=== PATIENT | female | born 1945 | race Caucasian/White ===

== ENCOUNTER 2022-05-28 10:21 | Emergency (ER) | payer OTHER, SELFPAY ==
--- NOTE | ~2022-05-28 | XR_ITS ---
EXAMINATION: XR LUMBOSACRAL SPINE CLINICAL INFORMATION: Fall. Pain. COMPARISON: None TECHNIQUE: Three views of the lumbosacral spine. FINDINGS: Bone alignment is normal. No fracture or dislocation is seen. There is mild degenerative disc disease at L2-L3 L3-L4 and L4-L5. There is mild spondylosis greatest at L2-L3. There is lower lumbar spine facet arthritis. There is atherosclerotic disease. XR/XR lumbar spine 2-3V IMPRESSION: Degenerative changes. No fracture is seen.
--- NOTE | ~2022-05-28 | XR_ITS ---
EXAMINATION: XR BILATERAL HIPS WITH AP PELVIS CLINICAL INFORMATION: Bilateral hip pain status post fall one month ago. COMPARISON: None TECHNIQUE: AP view of the pelvis and single views of each hip were obtained. FINDINGS: Minimal bilateral hip degenerative joint changes are seen. There is no acute fracture or dislocation. The bony pelvis is intact with the soft tissues are unremarkable. Moderate to severe atherosclerosis. XR/XR hip BI w PEL1V IMPRESSION: Minimal bilateral hip degenerative joint changes consistent with osteoarthritis. No overt acute fracture.
[2022-05-28 10:29] VITALS: BP 146/66; PULSE 88; RESP 19; TEMP 36.6; O2SAT 98; BMI 25.4
[2022-05-28] MEDS: Ibuprofen 600 MG TABLET PO (12:26)
--- NOTE | 2022-05-28 13:53 | ED_ITS ---
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 Mode of arrival: ambulatory Limitations: no limitations History of Present Illness MD Complaint: other (back pain, bilateral leg pain) Onset (ago): hour(s) (12) Pain Consistency: constant Location: left, right and other (back and hips) Quality: aching and constant Radiation: distal Relieving factors: nothing Exacerbating factors: walking and palpation Associated symptoms: denies other symptoms Context: other (fell 2 weeks ago landing on back) Related Data Previous Rx's Medication Instructions Recorded hydrocodone 5 mg-acetaminophen 325 1 tab PO Q6H PRN pain #8 tabs 05/28/22 mg tablet lidocaine 5 % topical patch 1 patch topical DAILY #30 ea 05/28/22 Allergies Allergy/AdvReac Type Severity Reaction Status Date / Time Penicillins Allergy Unknown Unknown Verified 05/28/22 14:02 Review of Systems Review of Systems: Constitutional : No Fever, No Chills ENT/Mouth : No Ear Pain, No Hoarseness, No sore throat Eyes: No Eye Pain, No Swelling, No Redness, No Foreign Body Cardiovascular : No Chest Pain, No SOB Respiratory : No Cough, No Dyspnea Gastrointestinal : No Nausea, No Vomiting, No Diarrhea, No abdominal Pain Genitourinary : No Dysuria, No Hematuria Musculoskeletal : positive joint pain, No Myalgias, No Joint Swelling, pos back apin Skin : No Skin lacerations, No rash Neuro : No Weakness, No Numbness, No Loss of Consciousness, No Dizziness, No Headache PMFSH Past Medical History Attestation statement: The following information was validated with the patient. Medical History Diabetes HTN (hypertension) Social History Social History (Updated 05/28/22 @ 14:09 by Dayna Hooper DO) Alcohol intake: never Patient Tobacco Use Status: Never used Tobacco Use of substances other than those prescribed or required for medical reasons: No Advance Directives: No Advance Directives Information Provided: Yes Physical Exam Vital Signs: Vital Signs: Last Vital Signs Temp 98 F 05/28/22 10:29 Pulse 88 05/28/22 10:29 Resp 19 05/28/22 10:29 BP 146/66 H 05/28/22 10:29 Pulse Ox 98 05/28/22 10:29 O2 Del Method 05/28/22 10:29 BMI result Body Mass Index 25.4 Appearance: Alert. Oriented X3. No acute distress. Eyes: Pupils equal, round and reactive to light. ENT: Pharynx normal. Neck: Normal inspection. Neck supple. CVS: Normal heart rate and rhythm. Pulses normal. Respiratory: No respiratory distress. Breath sounds normal. Abdomen: Soft and nontender. Femoral pulses bounding and equal Back: ttp along lower lumbar spine in midline Skin: Skin warm and dry. Normal skin color. Normal skin turgor. Extremities: No lower extremity edema. No calf ttp distal pulses DP/PT intact no signs of swelling compartments are soft and compressible Neuro: Oriented X 3. No motor deficit. No sensory deficit. Course Course Course Narrative: xray no acute fractures labs stable can be DC at this time MDM - Extremity (Nontraumatic) MDM Narrative Medical decision making narrative: 77 yo female with PMH of arthritis, DM, HTN here with c/o bilateral hip and back pain with fall 2 weeks ago - at this time will need hip and lumbar spine films, labs for lytes - distal NV intact, will treat pain - suspect MSK, pulses intact. No blood thinners to suggest bleeding, abdomen is benign. Lab Data Result diagrams: 05/28/22 14:46 05/28/22 14:46 Labs: Lab Results 05/28/22 05/28/22 05/28/22 Range/Units 14:46 14:46 14:46 WBC 7.7 (4.8-10.8) X10*3/uL RBC 5.11 (4.20-5.50) X10*6/uL Hgb 14.1 (12.0-16.0) g/dl Hct 42.9 (37.0-47.0) % MCV 84.0 (80.0-98.0) fL MCH 27.6 (27.0-33.0) pg MCHC 32.9 (31.0-35.0) g/dl RDW 13.2 (11.0-16.0) % Plt Count 169 (160-400) X10*3/uL MPV 12.4 H (9.4-12.3) fL Immature Gran % (Auto) 1.0 H (0.0-0.4) % Neut % (Auto) 57.8 (45-73) % Lymph % (Auto) 31.2 (20-40) % [place] % (Auto) 8.1 (2-11) % Eos % (Auto) 1.4 (0-4) % Baso % (Auto) 0.5 (0-2) % Lymph # (Auto) 2.4 (1.2-4.9) X10*3/uL [place] # (Auto) 0.6 (0.1-1.2) X10*3/uL Eos # (Auto) 0.1 (0.0-0.4) X10*3/uL Baso # (Auto) 0.0 (0.0-0.2) X10*3/uL Abs Immat Gran (auto) 0.08 H (0.00-0.03) X10*3/uL Absolute Neuts (auto) 4.4 (2.0-8.3) x10*3/uL Absolute Nucleated RBC 0.000 (0.0-0.012) X10*3/uL Nucleated RBC % (auto) 0.0 (0.0-0.2) /100WBC Sodium 141 (135-145) mmol/L Potassium 4.3 (3.3-5.1) mmol/L Chloride 106 (96-108) mmol/L Carbon Dioxide 25 (22-29) mmol/L Anion Gap 14 (12-20) BUN 21 H (9-16) mg/dL Creatinine 0.74 (0.5-1.4) mg/dL Estim Creat Clear Calc 49.5 Estimated GFR > 60 Random Glucose 112 (60-115) mg/dL Calcium 9.4 (8.4-10.2) mg/dL Magnesium 2.1 (1.6-2.6) mg/dL COVID-19 (REGIS) Negative (Negative) COVID-19 Clin Com See Note Discharge Plan Discharge Clinical Impression: Acute hip pain, bilateral Patient Disposition: Home, Self-Care Instructions: Arthralgia (ED), Hip Pain (ED) Additional Instructions: regresar al servicio de urgencias por cualquier empeoramiento de los s?ntomas o inquietudes las radiograf?as muestran artritis bryce no huesos rotos laboratorios normales Prescriptions: New hydrocodone-acetaminophen 5-325 mg tablet 1 tab PO Q6H PRN (Reason: pain) Qty: 8 0RF Rx Instructions: partial fill okay; Partial Fill upon patient request. lidocaine 5 % adhesive patch,medicated 1 patch topical DAILY Qty: 30 0RF Rx Instructions: leave on most painful area for up to 12 hrs Referrals: Physician,Unknown J [Primary Care Provider] - (m?dico de atenci?n primaria si no mejora en 3 d?as) Print Language: Urdu
--- NOTE | 2022-05-28 14:14 | PC.NURSE ---
Pt states she is experiencing a lot of pain in her hips, legs and back and has been so bad that it has caused nausea. She stated the pain feels like it is coming from the bones.
[2022-05-28] MEDS: HYDROcodone Bit/Acetam 5/325 TABLET 1 TAB PO (14:42)
[2022-05-28] MEDS: Ondansetron ODT 4 MG TAB.RAPDIS TRANSLINGU (14:42)
[2022-05-28 14:59] LABS: MANUAL DIFF FLAG NO
[2022-05-28 15:04] LABS: Basophils Percent Auto 0.5 % (0-2); Eosinophils Absolute Auto 0.1 X10*3/uL (0.0-0.4); Eosinophils Percent Auto 1.4 % (0-4); Hematocrit 42.9 % (37.0-47.0); Hemoglobin 14.1 g/dl (12.0-16.0); Imm Gran Abs Auto 0.08 X10*3/uL (0.00-0.03); Lymphocytes Absolute Auto 2.4 X10*3/uL (1.2-4.9); Lymphocytes Percent Auto 31.2 % (20-40); Mean Corpuscular HGB Conc 32.9 g/dl (31.0-35.0); Mean Corpuscular Hemoglobin 27.6 pg (27.0-33.0); Mean Platelet Volume 12.4 fL (9.4-12.3); Monocytes Absolute Auto 0.6 X10*3/uL (0.1-1.2); Monocytes Percent Auto 8.1 % (2-11); Neutrophils Absolute Auto 4.4 x10*3/uL (2.0-8.3); Neutrophils Percent Auto 57.8 % (45-73); Platelet Count 169 X10*3/uL (160-400); Red Blood Count 5.11 X10*6/uL (4.20-5.50); Red Cell Distribution Width 13.2 % (11.0-16.0); White Blood Count 7.7 X10*3/uL (4.8-10.8)
[2022-05-28 15:18] LABS: Anion Gap 14 (12-20); Blood Urea Nitrogen 21 mg/dL (9-16); Calcium 9.4 mg/dL (8.4-10.2); Carbon Dioxide 25 mmol/L (22-29); Chloride 106 mmol/L (96-108); Creatinine Clr Calc Pharmacy 49.5; Estimated Glomerular Filt Rate > 60; Glucose Random 112 mg/dL (60-115); Magnesium 2.1 mg/dL (1.6-2.6); Potassium 4.3 mmol/L (3.3-5.1); Sodium 141 mmol/L (135-145)
[2022-05-28 15:21] LABS: COVID-19 Test Negative (Negative)
--- NOTE | 2022-05-28 18:00 | PC.NURSE ---
Pt discharge plan given and explained. Pt left steady gait and left accompanied by .
== END 2022-05-28 16:28 | disposition home or self-care (01) ==
PROVIDERS: Emergency Provider Emergency Medicine
DX: M25.552 Pain in left hip (principal); M25.551 Pain in right hip; Z20.822 Contact with and (suspected) exposure to COVID-19; M54.50 Low back pain, unspecified; E11.9 Type 2 diabetes mellitus without complications; I10 Essential (primary) hypertension
CPT/HCPCS: 72100; 73521; 80048; 83735; 85025; 87635; 99283; 99284

== ENCOUNTER 2022-06-05 11:46 | Emergency (ER) | payer OTHER, SELFPAY ==
[2022-06-05 11:53] VITALS: BP 146/70; PULSE 83; RESP 18; TEMP 36.6; O2SAT 98; BMI 25.2
--- NOTE | 2022-06-05 17:03 | ED.EXTPRO ---
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 Patient was seen here on May 28 and diagnosed with osteoarthritis of the right hip. She was discharged prescriptions for Vicodin and Lidoderm. She tells me the Vicodin helps her pain. Unfortunately her insurance did not cover the Lidoderm patches so she has not been doing this. She ran out of her Vicodin this week and her pain has continued. The pain is in the right hip and radiates down into the right lower leg. She has some intermittent numbness and tingling of the leg. No numbness in the groin. No incontinence of urine or stool. No fevers or chills. Patient has follow-up appointment with her primary care doctor on June 22 Related Data Previous Rx's Medication Instructions Recorded hydrocodone 5 mg-acetaminophen 325 1 tab PO Q6H PRN pain #8 tabs 05/28/22 mg tablet lidocaine 5 % topical patch 1 patch topical DAILY #30 ea 05/28/22 cyclobenzaprine 5 mg tablet 5 mg PO TID PRN muscle spasm #14 06/05/22 tabs hydrocodone 5 mg-acetaminophen 325 1 tab PO Q6H PRN pain #8 tabs 06/05/22 mg tablet prednisone 20 mg tablet 40 mg PO DAILY #10 tabs 06/05/22 Allergies Allergy/AdvReac Type Severity Reaction Status Date / Time Penicillins Allergy Unknown Unknown Verified 05/28/22 14:02 aspirin [ASA] Allergy Unknown Verified 06/05/22 11:53 Review of Systems Review of Systems: Yes all other systems are reviewed and are negative Constitutional: Constitutional: Reports no additional constitutional complaints, Denies body ache(s), Denies chills, Denies fever(s), Denies headache(s) and Denies weakness Eyes: Eyes: Reports no additional eye complaints and Denies change in vision ENT: Reports system reviewed and no additional complaints, except as documented, Denies dizziness, Denies headache(s), Denies nasal congestion, Denies nasal discharge and Denies neck pain Cardiovascular: Cardiovascular: Reports no additional cardiovascular complaints, Denies chest pain, Denies leg edema and Denies dyspnea Respiratory: Respiratory: Reports no additional respiratory complaints, Denies cough and Denies dyspnea Gastrointestinal: Gastrointestinal: Reports no additional gastrointestinal complaints, Denies abdominal pain, Denies diarrhea, Denies nausea and Denies vomiting Genitourinary: Genitourinary: Reports no additional female genitourinary complaints and Denies urinary incontinence Musculoskeletal: Musculoskeletal: Reports no additional musculoskeletal complaints, Denies back pain, Reports arthralgias, Denies joint swelling, Denies neck pain, Denies numbness and Denies tingling Integumentary/Breasts: Skin/Breast: Reports system reviewed and no additional complaints, except as docu and Denies rash Neurologic: Reports system reviewed and no additional complaints, except as documented, Denies Abnormal speech present, Denies dizziness, Denies headache(s), Denies numbness, Denies tingling and Denies weakness PMFSH Past Medical History Attestation statement: The following information was validated with the patient. Source: old records reviewed and nursing notes reviewed Medical History Diabetes HTN (hypertension) Social History Social History Alcohol intake: never Patient Tobacco Use Status: Never used Tobacco Advance Directives: No Advance Directives Information Provided: Yes Physical Exam Vital Signs: Vital Signs: Last Vital Signs Temp 97.8 F 06/05/22 11:53 Pulse 83 06/05/22 11:53 Resp 18 06/05/22 11:53 BP 146/70 H 06/05/22 11:53 Pulse Ox 98 06/05/22 11:53 O2 Del Method 06/05/22 11:53 BMI result Body Mass Index 25.2 Const: General: cooperative, healthy appearing, comfortable and no acute distress Orientation/consciousness: patient oriented x3 Limitations: no limitations HEENT: Head: Yes normal to inspection Ears: hearing grossly normal bilaterally General nose exam: Normal external nose present Face and sinus: Yes normal facial exam Mouth: Normal oral and palatal mucosa present Throat: Yes posterior oropharynx normal Eyes: General: appearance normal, both eyes and all related structures Pupils: Equal, round and reactive pupils present Neck: Neck: Yes normal visual inspection Chest: Chest palpation & inspection: normal inspection of the chest Resp: Effort & Inspection: normal respiratory effort Auscultation: clear to auscultation bilaterally Cardio: Rate: regular rate Rhythm: regular rhythm Peripheral pulses: Peripheral pulses 2+ throughout GI: Inspection: Yes normal to inspection Palpation (GI): Soft to palpation and nontender Auscultation: normal bowel sounds Back/Spine/Pelvis: Other: tenderness to the right buttocks over the soft tissue. No tenderness over hip or over the lumbar spine. Patient reports pain radiates down the right leg Thoracic/Lumbar Spine: thoracic and lumbar spine normal to inspection Skin: General skin exam: no rashes or lesions noted Neuro: General: patient oriented x3, no focal motor deficits and normal sensation to monofilament Cranial nerves: Yes CN's II-XII intact bilaterally, Yes Equal, round and reactive pupils present, Yes Bilaterally intact EOM present, Yes Nystagmus not present, Yes Normal facial strength present and Yes Midline tongue present Cognition (Neuro): normal cognition Speech: No Abnormal speech present Gait exam (Neuro): Normal gait present Motor exam (neuro): 5/5 motor strength present throughout Sensory Exam: Normal double simultaneous stimulation for sensation Deep tendon reflexes (DTR's): Right patellar reflex intensity grade: 2+ and Left patellar reflex intensity grade: 2+ Extrem: General: Yes normal to inspection, Yes no pedal edema and Yes no calf tenderness MDM - Extremity (Nontraumatic) MDM Narrative Medical decision making narrative: [age]-year-old female with history hypertension, diabetes, osteoarthritis presents with right hip pain for 1 month with no known injury or trauma. Patient tells me she was seen here on 05/28 and sent home with Vicodin and Lidoderm patches. Vicodin does seem to help her pain which she takes it but she ran out of this. No new injury or trauma. Patient reports pain radiates down the right leg with some intermittent numbness and tingling. Normal neuro exam. No neuro deficits. Patient is ambulatory. No new trauma or injury to suggest [place] imaging needed. Exam is more consistent with sciatica versus osteoarthritis will discharge with Vicodin, Flexeril, prednisone course. Patient reports she is insulin-dependent diabetic and her blood sugars are well controlled. She was informed that the prednisone may elevate her blood sugars temporarily. Reviewed worrisome signs and symptoms with return to the emergency department. Comfortable discharge home. Medical Records Attestation: I reviewed the patient's medical records. Lab Data Attestation: I reviewed the patient's lab results. Discharge Plan Discharge Clinical Impression: Sciatica Patient Disposition: Home, Self-Care Instructions: Sciatica (ED) Additional Instructions: Mantenga scott heidi con scott m?dico de atenci?n primaria seg?n lo programado. Calor a la myesha Estiramiento suave Sin levantar objetos pesados ??ni agacharse. Espere que cuando tome prednisona, elena niveles de az?car en la modesta puedan estar elevados. Prescriptions: New prednisone 20 mg tablet 40 mg PO DAILY Qty: 10 0RF cyclobenzaprine 5 mg tablet 5 mg PO TID PRN (Reason: muscle spasm) Qty: 14 0RF hydrocodone-acetaminophen 5-325 mg tablet 1 tab PO Q6H PRN (Reason: pain) Qty: 8 0RF Rx Instructions: Partial Fill upon patient request. No Action hydrocodone-acetaminophen 5-325 mg tablet 1 tab PO Q6H PRN (Reason: pain) Qty: 8 0RF Rx Instructions: partial fill okay; Partial Fill upon patient request. lidocaine 5 % adhesive patch,medicated 1 patch topical DAILY Qty: 30 0RF Rx Instructions: leave on most painful area for up to 12 hrs Referrals: Physician,Unknown J [Primary Care Provider] - Print Language: Hebrew
== END 2022-06-05 18:17 | disposition home or self-care (01) ==
PROVIDERS: Emergency Provider Emergency Medicine
DX: M54.41 Lumbago with sciatica, right side (principal); E11.9 Type 2 diabetes mellitus without complications; Z79.899 Other long term (current) drug therapy; Z79.4 Long term (current) use of insulin
CPT/HCPCS: 99282; 99283

== ENCOUNTER 2022-06-17 14:58 | Emergency (ER) | payer OTHER, SELFPAY ==
--- NOTE | ~2022-06-17 | CT_ITS ---
EXAMINATION: CT PELVIS WITHOUT CONTRAST CLINICAL INFORMATION: Right hip and pelvic pain. Status post jumping out of car. COMPARISON: Pelvis and bilateral hip x-rays of 05/28/2022. TECHNIQUE: Helical scanning was performed with submillimeter collimation through the pelvis. Sagittal and coronal multiplanar 2-D reconstructions were obtained. This CT examination was performed using dose optimization techniques as appropriate, variously including the following: *Automated exposure control *Adjustment of mA and/or kV according to patient size (this includes techniques or standardized protocols for targeted exams where dose is matched to indication/reason for exam; i.e. extremities or head) *Use of iterative reconstruction technique DLP: 235 mGy-cm FINDINGS: There is no evidence of acute fracture or dislocation. Hip joints are intact. Symphysis pubis is intact. Degenerative changes are noted at the sacroiliac joints with vacuum disc phenomenon. There is no evidence of abnormal widening or fusion of the sacroiliac joints. No suspicious osseous lesion. Urinary bladder is unremarkable. The uterus is deviated to the right. Uterine myometrial vascular calcifications are noted. No adnexal mass. Diverticulosis of the visualized colon without acute diverticulitis. No findings suggestive of significant soft tissue injury are seen. [id number] calcific atherosclerosis of the iliac vessels. CT/CT pelvis wo IV con IMPRESSION: No evidence of acute fracture or dislocation in the right hip and pelvis.
[2022-06-17 15:04] VITALS: BP 120/64; BP 160/72; PULSE 77; PULSE 94; RESP 18; TEMP 36.8; O2SAT 94; O2SAT 99; BMI 31.2
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
[2022-06-17] MEDS: Cyclobenzaprine HCl 10 MG TABLET PO (15:38)
[2022-06-17] MEDS: Lidocaine 4 % Patch ADH..PATCH 1 PATCH TRANSDERMA (15:38)
[2022-06-17 16:38] LABS: Glucose, Whole Blood 242 mg/dL (60-115)
== END 2022-06-17 18:09 | disposition home or self-care (01) ==
PROVIDERS: Emergency Provider Emergency Medicine
DX: M16.11 Unilateral primary osteoarthritis, right hip (principal); M25.551 Pain in right hip; M79.604 Pain in right leg; Z79.899 Other long term (current) drug therapy
CPT/HCPCS: 72192; 82947; 99283

== ENCOUNTER 2022-10-09 11:15 | Emergency (ER) | payer OTHER, SELFPAY ==
--- NOTE | ~2022-10-09 | XR_ITS ---
EXAMINATION: XR CHEST CLINICAL INFORMATION: SOB COMPARISON: None TECHNIQUE: Frontal view of the chest was obtained. FINDINGS: No significant abnormality is noted involving the heart, lungs, mediastinum, bony thorax or soft tissues.Mitral annular calcification. Degenerative changes of the spine. XR/XR chest 1V IMPRESSION: No evidence for acute disease in the chest.
--- NOTE | 2022-10-09 11:21 | ED.ANXIETY ---
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 Patient had woken up last night with sensation her heart was stopping. It happened again this morning and she was SOB and anxious. Her called 911, she refused to come but eventually agreed. She states she is under a lot of stress, her twin sister is undergoing a heart surgery. She states it felt like her heart had an extra beat. No chest pain or difficulty breathing. Patient is feeling better and asymptomatic on arrival. MD complaint: anxiety and shortness of breath Onset (ago): hour(s) Symptoms: palpitations and sense of impending doom Severity: moderate Quality: intermittent and improving Place: home History of similar episodes: No Provoking factors: emotional stress Relieving factors: deep breaths and rest Exacerbating factors: thinking about event Associated symptoms: other (cough) Related Data Previous Rx's Medication Instructions Recorded hydrocodone 5 mg-acetaminophen 325 1 tab PO Q6H PRN pain #8 tabs 05/28/22 mg tablet lidocaine 5 % topical patch 1 patch topical DAILY #30 ea 05/28/22 cyclobenzaprine 5 mg tablet 5 mg PO TID PRN muscle spasm #14 06/05/22 tabs hydrocodone 5 mg-acetaminophen 325 1 tab PO Q6H PRN pain #8 tabs 06/05/22 mg tablet prednisone 20 mg tablet 40 mg PO DAILY #10 tabs 06/05/22 acetaminophen 500 mg tablet 500 mg PO Q6H PRN fever or pain 06/17/22 (Tylenol Extra Strength) #14 tabs cyclobenzaprine 5 mg tablet 5 mg PO Q8H PRN pain (scale score 06/17/22 7-10) 5 days #14 tabs diclofenac sodium 3 % topical gel 1 appl topical BID PRN pain (scale 06/17/22 score 1-3) #100 grams lidocaine 5 % topical patch 1 patch topical DAILY PRN pain #30 06/17/22 (Lidoderm) ea Allergies Allergy/AdvReac Type Severity Reaction Status Date / Time Penicillins Allergy Unknown Unknown Verified 05/28/22 14:02 aspirin [ASA] Allergy Unknown Verified 06/05/22 11:53 Review of Systems Review of Systems: Constitutional: No Fever, No Chills ENT/Mouth: No sore throat, No Rhinorrhea, No Swallowing Difficulty Cardiovascular: No Chest Pain, No SOB, No Orthopnea, No Edema , +Palpitations Respiratory: + Cough, No Sputum, No Wheezing, No dyspnea Gastrointestinal: No Nausea, No Vomiting, No Diarrhea, No abdominal Pain, No Hematochezia, No Melena Genitourinary: No Dysuria, No Urinary Frequency, No Hematuria Musculoskeletal: No joint pain, No Myalgias Skin: No Skin Lesions, No rash Neuro: No Weakness, No Numbness, No Dizziness, + Headache Psych: + Anxiety/Panic, No Depression Heme/Lymph: No Bruising, No Lymphadenopathy Endocrine: No Polyuria, No Polydipsia PMFSH Past Medical History Medical History Diabetes HTN (hypertension) Social History Social History Alcohol intake: never Patient Tobacco Use Status: Never used Tobacco Advance Directives: No Advance Directives Information Provided: Yes Physical Exam Vital Signs: Vital Signs: Last Vital Signs Temp 98.5 F 10/09/22 11:31 Pulse 76 10/09/22 11:31 Resp 16 10/09/22 11:31 BP 127/52 L 10/09/22 11:31 Pulse Ox 97 10/09/22 11:31 O2 Del Method 10/09/22 11:31 BMI result Body Mass Index 0.0 Appearance: Alert. Oriented X3. No acute distress. Eyes: Pupils equal, round and reactive to light. ENT: Pharynx normal. Neck: Normal inspection. Neck supple. CVS: Normal heart rate and rhythm. Pulses normal. No anterior chest wall tenderness. Respiratory: No respiratory distress. Breath sounds normal. Abdomen: Soft and nontender. +BS x4 Skin: Skin warm and dry. Normal skin color. Normal skin turgor. No rashes. Extremities: No lower extremity edema. No calf swelling or redness. Neuro: Oriented X 3. No motor deficit. No sensory deficit. Course Course Course Narrative: 77-year-old female with history of diabetes and hypertension presents to the ER for evaluation of ?feeling like her heart was stopped. ? Denies any chest pain but was anxious and hyperventilating at the time of her symptoms. They are now resolved. She does have a mild cough and headache as well. Her vital signs are stable on arrival in her physical exam is unremarkable. Will check EKG, troponin x2, basic labs, chest x-ray, viral swab. Will reassess. Reevaluation(s) Reevaluation #1: Troponin only 7. Repeat did not have a delta 50% change, not consistent with ACS. EKG without ischemic changes. Chest x-ray is clear and other labs are unremarkable. She did test positive for COVID-19. She is fully vaccinated and boosted. Her symptoms are mild and vital signs remained stable. Comfortable discharge home with outpatient follow-up. Medical Decision Making Differential Diagnosis Differential Diagnoses: The differential diagnosis associated with the presentation includes Anxiety, palpitations, viral illness, pneumonia, arrhythmia, ACS Lab Data MDM Lab Attestation statement: I reviewed the patient's lab results. Result Diagrams: 10/09/22 11:45 10/09/22 11:45 Labs: Lab Results 10/09/22 10/09/22 10/09/22 Range/Units 11:45 11:45 11:45 WBC 5.1 (4.8-10.8) X10*3/uL RBC 4.45 (4.20-5.50) X10*6/uL Hgb 12.8 (12.0-16.0) g/dl Hct 38.3 (37.0-47.0) % MCV 86.1 (80.0-98.0) fL MCH 28.8 (27.0-33.0) pg MCHC 33.4 (31.0-35.0) g/dl RDW 12.2 (11.0-16.0) % Plt Count 155 L (160-400) X10*3/uL MPV 12.5 H (9.4-12.3) fL Immature Gran % (Auto) 0.6 H (0.0-0.4) % Neut % (Auto) 59.9 (45-73) % Lymph % (Auto) 28.6 (20-40) % Zavala % (Auto) 8.4 (2-11) % Eos % (Auto) 2.1 (0-4) % Baso % (Auto) 0.4 (0-2) % Lymph # (Auto) 1.5 (1.2-4.9) X10*3/uL Zavala # (Auto) 0.4 (0.1-1.2) X10*3/uL Eos # (Auto) 0.1 (0.0-0.4) X10*3/uL Baso # (Auto) 0.0 (0.0-0.2) X10*3/uL Abs Immat Gran (auto) 0.03 (0.00-0.03) X10*3/uL Absolute Neuts (auto) 3.1 (2.0-8.3) x10*3/uL Absolute Nucleated RBC 0.000 (0.0-0.012) X10*3/uL Nucleated RBC % (auto) 0.0 (0.0-0.2) /100WBC Sodium 138 (135-145) mmol/L Potassium 4.0 (3.3-5.1) mmol/L Chloride 106 (96-108) mmol/L Carbon Dioxide 24 (22-29) mmol/L Anion Gap 12 (12-20) BUN 12 (9-16) mg/dL Creatinine 0.85 (0.5-1.4) mg/dL Estim Creat Clear Calc TNP Estimated GFR > 60 Random Glucose 124 H (60-115) mg/dL Calcium 9.2 (8.4-10.2) mg/dL Magnesium 1.9 (1.6-2.6) mg/dL Total Bilirubin 0.6 (0.0-1.0) mg/dL Direct Bilirubin 0.2 (0.0-0.5) mg/dL AST 17 (5-31) U/L ALT 15 (0-31) U/L Alkaline Phosphatase 53 (39-117) U/L Troponin I High Sens 7.2 (<3.5-17.0) ng/L Total Protein 6.7 (6.5-8.0) g/dL Albumin 4.2 (3.5-5.0) g/dL Influenza Type A (PCR) (Negative) Influenza Type B (PCR) (Negative) RSV RNA Qual (PCR) (Negative) SARS-CoV-2 RNA (RT-PCR) (Negative) 10/09/22 10/09/22 Range/Units 11:58 14:01 WBC (4.8-10.8) X10*3/uL RBC (4.20-5.50) X10*6/uL Hgb (12.0-16.0) g/dl Hct (37.0-47.0) % MCV (80.0-98.0) fL MCH (27.0-33.0) pg MCHC (31.0-35.0) g/dl RDW (11.0-16.0) % Plt Count (160-400) X10*3/uL MPV (9.4-12.3) fL Immature Gran % (Auto) (0.0-0.4) % Neut % (Auto) (45-73) % Lymph % (Auto) (20-40) % Zavala % (Auto) (2-11) % Eos % (Auto) (0-4) % Baso % (Auto) (0-2) % Lymph # (Auto) (1.2-4.9) X10*3/uL Zavala # (Auto) (0.1-1.2) X10*3/uL Eos # (Auto) (0.0-0.4) X10*3/uL Baso # (Auto) (0.0-0.2) X10*3/uL Abs Immat Gran (auto) (0.00-0.03) X10*3/uL Absolute Neuts (auto) (2.0-8.3) x10*3/uL Absolute Nucleated RBC (0.0-0.012) X10*3/uL Nucleated RBC % (auto) (0.0-0.2) /100WBC Sodium (135-145) mmol/L Potassium (3.3-5.1) mmol/L Chloride (96-108) mmol/L Carbon Dioxide (22-29) mmol/L Anion Gap (12-20) BUN (9-16) mg/dL Creatinine (0.5-1.4) mg/dL Estim Creat Clear Calc Estimated GFR Random Glucose (60-115) mg/dL Calcium (8.4-10.2) mg/dL Magnesium (1.6-2.6) mg/dL Total Bilirubin (0.0-1.0) mg/dL Direct Bilirubin (0.0-0.5) mg/dL AST (5-31) U/L ALT (0-31) U/L Alkaline Phosphatase (39-117) U/L Troponin I High Sens 8.7 (<3.5-17.0) ng/L Total Protein (6.5-8.0) g/dL Albumin (3.5-5.0) g/dL Influenza Type A (PCR) NEGATIVE (Negative) Influenza Type B (PCR) NEGATIVE (Negative) RSV RNA Qual (PCR) NEGATIVE (Negative) SARS-CoV-2 RNA (RT-PCR) POSITIVE A (Negative) Independent Interpretation I performed an independent interpretation of an: EKG Interpretation: Normal sinus rhythm, ventricular rate 72 beats per minute, normal ID interval, normal QTC, no ST segment elevations or depressions Radiology Impression Discussion of test interpretation with radiology: I have reviewed the radiologist's reading. Radiologist Impression: Chest x-ray is clear, no evidence of acute disease in the chest Independent Historian Clinical information obtained from an independent historian. History obtained from or confirmed by: Spouse and EMS Chronic Conditions Patient?s care impacted by: Diabetes and Hypertension Discharge Plan Discharge Clinical Impression: Anxiety, COVID-19 Patient Disposition: Home, Self-Care Instructions: Covid-19 Viral Syndrome and Novel Coronavirus (ED) Hey/Ath Additional Instructions: You were found to be COVID-19 POSITIVE today. Your chest x-ray and oxygen levels were normal. Rest. Drink plenty of fluids. Do not go out in public while you are not feeling well Take over the counter cold/flu medications as needed for your symptoms. Take Tylenol and/or Motrin as needed for fevers and body aches. Follow up with your doctor this week. If you develop new or worsening symptoms call 911 or come back to the ER for further evaluation. Prescriptions: No Action hydrocodone-acetaminophen 5-325 mg tablet 1 tab PO Q6H PRN (Reason: pain) Qty: 8 0RF Rx Instructions: partial fill okay; Partial Fill upon patient request. lidocaine 5 % adhesive patch,medicated 1 patch topical DAILY Qty: 30 0RF Rx Instructions: leave on most painful area for up to 12 hrs prednisone 20 mg tablet 40 mg PO DAILY Qty: 10 0RF cyclobenzaprine 5 mg tablet 5 mg PO TID PRN (Reason: muscle spasm) Qty: 14 0RF hydrocodone-acetaminophen 5-325 mg tablet 1 tab PO Q6H PRN (Reason: pain) Qty: 8 0RF Rx Instructions: Partial Fill upon patient request. acetaminophen [Tylenol Extra Strength] 500 mg tablet 500 mg PO Q6H PRN (Reason: fever or pain) Qty: 14 0RF lidocaine [Lidoderm] 5 % adhesive patch,medicated 1 patch topical DAILY MDD remove after 12 hours PRN (Reason: pain) Qty: 30 0RF Rx Instructions: leave on most painful area for up to 12 hrs cyclobenzaprine 5 mg tablet 5 mg PO Q8H PRN (Reason: pain (scale score 7-10)) 5 Days Qty: 14 0RF diclofenac sodium 3 % gel 1 appl topical BID PRN (Reason: pain (scale score 1-3)) Qty: 100 0RF Interventions: ED Discharge Assessment Last Done: 10/09/22 14:46 Discharge Date/Time: 10/09/22 14:47 Print Language: Kazakh
--- NOTE | 2022-10-09 11:24 | ECG_ITS ---
Test Reason : palpitations Blood Pressure : / mmHG Vent. Rate : 079 BPM Atrial Rate : 079 BPM P-R Int : 122 ms QRS Dur : 068 ms QT Int : 380 ms P-R-T Axes : 060 043 042 degrees QTc Int : 435 ms Normal sinus rhythm Normal ECG No previous ECGs available Referred By: Ingrid Colon Electronically Signed By:AYAN FLOYD MD
[2022-10-09 11:25] VITALS: BP 136/69; PULSE 84; O2SAT 98
[2022-10-09 11:31] VITALS: BP 127/52; PULSE 76; RESP 16; TEMP 36.9; O2SAT 97
[2022-10-09 11:49] LABS: MANUAL DIFF FLAG NO
[2022-10-09 11:50] LABS: Basophils Percent Auto 0.4 % (0-2); Eosinophils Absolute Auto 0.1 X10*3/uL (0.0-0.4); Eosinophils Percent Auto 2.1 % (0-4); Hematocrit 38.3 % (37.0-47.0); Hemoglobin 12.8 g/dl (12.0-16.0); Imm Gran Abs Auto 0.03 X10*3/uL (0.00-0.03); Imm Gran Pct Auto 0.6 % (0.0-0.4); Lymphocytes Absolute Auto 1.5 X10*3/uL (1.2-4.9); Lymphocytes Percent Auto 28.6 % (20-40); Mean Corpuscular HGB Conc 33.4 g/dl (31.0-35.0); Mean Corpuscular Hemoglobin 28.8 pg (27.0-33.0); Mean Corpuscular Volume 86.1 fL (80.0-98.0); Mean Platelet Volume 12.5 fL (9.4-12.3); Monocytes Absolute Auto 0.4 X10*3/uL (0.1-1.2); Monocytes Percent Auto 8.4 % (2-11); Neutrophils Absolute Auto 3.1 x10*3/uL (2.0-8.3); Neutrophils Percent Auto 59.9 % (45-73); Platelet Count 155 X10*3/uL (160-400); Red Blood Count 4.45 X10*6/uL (4.20-5.50); Red Cell Distribution Width 12.2 % (11.0-16.0); White Blood Count 5.1 X10*3/uL (4.8-10.8)
[2022-10-09 12:09] LABS: Alanine Aminotransferase 15 U/L (0-31); Albumin Level 4.2 g/dL (3.5-5.0); Alkaline Phosphatase 53 U/L (39-117); Anion Gap 12 (12-20); Aspartate Amino Transferase 17 U/L (5-31); Bilirubin Direct 0.2 mg/dL (0.0-0.5); Bilirubin Total 0.6 mg/dL (0.0-1.0); Blood Urea Nitrogen 12 mg/dL (9-16); Calcium 9.2 mg/dL (8.4-10.2); Carbon Dioxide 24 mmol/L (22-29); Chloride 106 mmol/L (96-108); Estimated Glomerular Filt Rate > 60; Glucose Random 124 mg/dL (60-115); Magnesium 1.9 mg/dL (1.6-2.6); Sodium 138 mmol/L (135-145); Total Protein 6.7 g/dL (6.5-8.0)
[2022-10-09 12:11] LABS: Troponin-I High Sensitivity 7.2 ng/L (<3.5-17.0)
[2022-10-09 12:45] LABS: Influenza A PCR NEGATIVE (Negative); Influenza B PCR NEGATIVE (Negative); Resp Syncy Virus RNA Qual PCR NEGATIVE (Negative); SARS COV2 PCR INHOUSE POSITIVE (Negative)
[2022-10-09 14:27] LABS: Troponin-I High Sensitivity 8.7 ng/L (<3.5-17.0)
== END 2022-10-09 14:47 | disposition home or self-care (01) ==
PROVIDERS: Physician Assistant; Emergency Provider Student in an Organized Health Care Education/Training Program
DX: U07.1 COVID-19 (principal); F41.1 Generalized anxiety disorder; F43.0 Acute stress reaction; R05.9 Cough, unspecified; Z79.899 Other long term (current) drug therapy
CPT/HCPCS: 0241U; 36415; 71045; 80048; 80076; 83735; 84484; 85025; 93005; 99283

== ENCOUNTER 2024-04-20 10:50 | Emergency (ER) | payer MEDICARE, SELFPAY ==
--- NOTE | ~2024-04-20 | XR_ITS ---
EXAMINATION: XR HIP, LEFT WITH PELVIS CLINICAL INFORMATION: Left hip pain COMPARISON: X-ray pelvis and bilateral hips on 05/28/2022 TECHNIQUE: Frontal x-ray of the pelvis, Frontal and Frog leg lateral x-rays of left hip. FINDINGS: BONES: Bony structures are intact. There is no focal bone destruction or periosteal reaction seen. JOINTS: Alignment of hip joint is normal. SOFT TISSUE: Soft tissue is normal. No radiopaque foreign body or abnormal air collection is seen. XR/XR hip LT w PEL1V IMPRESSION: 1. Unchanged Normal pelvis x-ray. No fracture or dislocation is seen. 2. Unchanged Normal x-ray of left hip. No fracture or dislocation or signs of avascular necrosis are seen.
[2024-04-20 10:52] VITALS: BP 121/62; PULSE 80; RESP 18; TEMP 36.9; O2SAT 97; BMI 23.4
--- NOTE | 2024-04-20 13:01 | ED_ITS ---
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 Patient denies any recent trauma or injury. Family member reports that she fell many years ago which caused her to have chronic left hip pain. Patient reports that over the last week her pain has only worsened. She denies any fevers, chills, chest pain, shortness breath, abdominal pain, nausea, vomiting or diarrhea. No urinary or bowel retention or incontinence. No saddle anesthesia. Denies any other complaints or concerns at this time MD complaint: hip injury Onset (ago): week(s) Relieving factors: nothing Exacerbating factors: nothing Other symptoms: none Related Data Previous Rx's ?Medication ?Instructions ?Recorded hydrocodone 5 mg-acetaminophen 325 1 tab PO Q6H PRN pain #8 tabs 05/28/22 mg tablet lidocaine 5 % topical patch 1 patch topical DAILY #30 ea 05/28/22 cyclobenzaprine 5 mg tablet 5 mg PO TID PRN muscle spasm #14 06/05/22 tabs hydrocodone 5 mg-acetaminophen 325 1 tab PO Q6H PRN pain #8 tabs 06/05/22 mg tablet prednisone 20 mg tablet 40 mg (2 x 20 mg) PO DAILY #10 tabs 06/05/22 acetaminophen 500 mg tablet 500 mg PO Q6H PRN fever or pain 06/17/22 (Tylenol Extra Strength) #14 tabs cyclobenzaprine 5 mg tablet 5 mg PO Q8H PRN pain (scale score 06/17/22 7-10) 5 days #14 tabs diclofenac sodium 3 % topical gel 1 appl topical BID PRN pain (scale 06/17/22 score 1-3) #100 grams lidocaine 5 % topical patch 1 patch topical DAILY PRN pain #30 06/17/22 (Lidoderm) ea Allergies Allergy/AdvReac Type Severity Reaction Status Date / Time Penicillins Allergy Unknown Unknown Verified 04/20/24 10:58 aspirin [ASA] Allergy Unknown Verified 04/20/24 10:58 Review of Systems Review of Systems: Yes all other systems are reviewed and are negative Constitutional: Constitutional: Reports as per [facility] Past Medical History Medical History Diabetes HTN (hypertension) Social History Social History Alcohol intake: never Patient Tobacco Use Status: Never used Tobacco Advance Directives: No Advance Directives Information Provided: Yes Do you have a plan to hurt others: No Plan Physical Exam Vital Signs: Vital Signs: Last Vital Signs Temp 98.4 F 04/20/24 16:27 Pulse 80 04/20/24 16:27 Resp 18 04/20/24 16:27 BP 121/62 04/20/24 16:27 Pulse Ox 97 04/20/24 16:27 O2 Del Method Room Air 04/20/24 16:27 BMI result Body Mass Index 23.4 Const: General: cooperative, comfortable and no acute distress Orientation/consciousness: patient oriented x3 Limitations: no limitations HEENT: Head: Yes normal to inspection, Yes normocephalic and Yes atraumatic Ears: hearing grossly normal bilaterally General nose exam: Normal external nose present Face and sinus: Yes normal facial exam Mouth: Normal oral and palatal mucosa present, oropharynx normal and moist mucous membranes Throat: Yes posterior oropharynx normal Eyes: General: appearance normal, both eyes and all related structures Eyelids: Yes eyelids normal Conjunctivae: conjunctivae normal Sclerae: sclerae normal Pupils: Equal, round and reactive pupils present EOM: EOMs intact bilaterally Neck: Neck: Yes normal visual inspection, Yes full ROM and Yes no lymphadenopathy Lymphatic: no lymphadenopathy noted Chest: Chest palpation & inspection: normal inspection of the chest Resp: Effort & Inspection: normal respiratory effort and able to speak in complete sentences Auscultation: clear to auscultation bilaterally, no crackles, no rales, no rhonchi and no wheezes Cardio: Rate: regular rate Rhythm: regular rhythm Heart sounds: S1 normal heart sound present and S2 normal heart sound present GI: Inspection: Yes normal to inspection Skin: General skin exam: no rashes or lesions noted Trauma: no lacerations or abrasions Wounds: no wounds Neuro: General: patient oriented x3 and moves all extremities Cranial nerves: Yes Equal, round and reactive pupils present Extrem: Other: Patient has tenderness to palpation along the anterior left hip, no overlying skin changes or warmth. She is ambulatory with steady gait. Strength 5/5 in lower extremities. No low back pain. No SI joint pain General: Yes normal to inspection Right upper extremity: normal to inspection Left upper extremity: normal to inspection Right lower extremi ty: normal to inspection Left lower extremity: normal to inspection Medical Decision Making Medical Decision Making [facility] Narrative: This is a 79-year-old female who presents emergency department with complaints of left hip pain x1 week. On arrival, vital signs within normal limits. She is nontoxic appearing, she is tenderness palpation along the left anterior hip. Strength 5/5 in lower extremities. She has had no recent trauma or injury however given chronic pain, will obtain x-ray for evaluation. Patient medicated with Tylenol in the department. X-ray was ordered and reviewed as normal. I discussed this with patient. She understands and agrees with plan. She is eager for discharge. Patient is stable discharge Differential Diagnosis Differential Diagnoses: The differential diagnosis associated with the presentation includes Arthritis, chronic pain, fracture, dislocation Radiology Impression Discussion of test interpretation with radiology: I have reviewed the radiologist's reading. Radiologist Impression: XR/XR hip LT w PEL1V IMPRESSION: 1. Unchanged Normal pelvis x-ray. No fracture or dislocation is seen. 2. Unchanged Normal x-ray of left hip. No fracture or dislocation or signs of avascular necrosis are seen. Dictated By: Brian Roberts Signed By: <Electronically sign Independent Historian Clinical information obtained from an independent historian. History obtained from or confirmed by: Spouse Discharge Plan Discharge Clinical Impression: Hip pain, left Patient Disposition: Home, Self-Care Instructions: Hip Pain (ED) Additional Instructions: You were seen in the emergency department due to left hip pain. Your x-ray did not show any broken bones. Take Tylenol as needed for pain. Heat or ice can also help with your symptoms. Follow-up with your primary care physician. If any new or worsening symptoms occur including but not limited to worsening p ain, fevers, chills, chest pain or shortness of breath, please return for re- evaluation. Prescriptions: No Action hydrocodone-acetaminophen 5-325 mg tablet 1 tab PO Q6H PRN (Reason: pain) Qty: 8 0RF Rx Instructions: partial fill okay; Partial Fill upon patient request. lidocaine 5 % adhesive patch,medicated 1 patch topical DAILY Qty: 30 0RF Rx Instructions: leave on most painful area for up to 12 hrs prednisone 20 mg tablet 40 mg PO DAILY Qty: 10 0RF cyclobenzaprine 5 mg tablet 5 mg PO TID PRN (Reason: muscle spasm) Qty: 14 0RF hydrocodone-acetaminophen 5-325 mg tablet 1 tab PO Q6H PRN (Reason: pain) Qty: 8 0RF Rx Instructions: Partial Fill upon patient request. acetaminophen [Tylenol Extra Strength] 500 mg tablet 500 mg PO Q6H PRN (Reason: fever or pain) Qty: 14 0RF lidocaine [Lidoderm] 5 % adhesive patch,medicated 1 patch topical DAILY MDD remove after 12 hours PRN (Reason: pain) Qty: 30 0RF Rx Instructions: leave on most painful area for up to 12 hrs cyclobenzaprine 5 mg tablet 5 mg PO Q8H PRN (Reason: pain (scale score 7-10)) 5 Days Qty: 14 0RF diclofenac sodium 3 % gel 1 appl topical BID PRN (Reason: pain (scale score 1-3)) Qty: 100 0RF Interventions: ED Discharge Assessment Last Done: 04/20/24 16:27 Discharge Date/Time: 04/20/24 16:27 Print Language: Greenlandic
[2024-04-20 16:27] VITALS: BP 121/62; PULSE 80; RESP 18; TEMP 36.9; O2SAT 97
== END 2024-04-20 16:27 | disposition home or self-care (01) ==
PROVIDERS: Emergency Provider Emergency Medicine
DX: M25.552 Pain in left hip (principal); R10.2 Pelvic and perineal pain; Z79.899 Other long term (current) drug therapy
CPT/HCPCS: 73502; 99282; 99283

== ENCOUNTER 2024-04-28 14:30 | Outpatient (AMB) | payer MEDICARE, SELFPAY ==
--- NOTE | 2024-04-28 14:41 | MHC.OFFVIS ---
Vital Signs 04/28/24 14:47 Height 4 ft 11 in Weight 116 lb BMI 23.4 Intake Visit Reasons: New Pt- left hip pain, S/P fall Intake Note: Zaida is a 79 year old female who presents today as a new patient for a evaluation of her left hip pain, hx of a fall about 3 years ago. Patient reports she was getting out of her daughters car she fell. Pain is on near the glutes and it moves down her leg. Her pain is worse when sitting for too long and walking long distances. She finds relief with heat and cold compresses. Inspecting And Testing Lead Hand Services: Inspecting And Testing Lead Hand Present (Tablet) Inspecting And Testing Lead Hand Name: Brent ([id number]) Information Interpreted: clinical only Allergies Penicillins Allergy (Unknown, Verified 04/28/24 14:43) Unknown aspirin [ASA] Allergy (Verified 04/28/24 14:43) Unknown HPI HPI New Pt- left hip pain, S/P fall: Details: 79-year-old female, who is Beninese speaking presents in the office today, as a new patient, for an evaluation of left hip pain. The patient presented to the ED on 04/20/2024 status post left hip pain for a week. She was encouraged to use Tylenol PRN for pain.? ? While in the office today, the patient reports a fall about three years ago, in 2020, when she was getting out of her daughter?s car. She reports her pain is near the glutes and radiates down her bilateral lower extremity. She states the pain increases when sitting for long periods of time and ambulating long distances. She confirms the use of heat and cold compresses, which gives her relief. ? ? Patient has a significant medical history of dementia and diabetes mellitus.? [facility] Medical History Diabetes HTN (hypertension) Social History (Updated 04/28/24 @ 14:45 by Veronique Beckett) Alcohol intake: never Patient Tobacco Use Status: Never used Tobacco Current occupational status: disabled Review of Systems Const All systems reviewed & are unremarkable except as noted in HPI and below Physical Exam Vital Signs: BMI result Body Mass Index 23.4 Const General: cooperative and no acute distress Orientation/consciousness: patient oriented x3 Resp Effort & Inspection: normal respiratory effort and able to speak in complete sentences Cardio Peripheral pulses: Peripheral pulses 2+ throughout Skin General skin exam: no rashes or lesions noted Neuro General: patient oriented x3 Extrem Other: Left hip: Normal to inspection. No ecchymosis, erythema, or edema. Full hip ROM in all planes. No tenderness to palpation over the greater trochanteric bursa. 3/5 strength with resisted hip flexion, knee extension, abduction, and abduction. Able to perform straight leg raise. NVI.? Patient reports her pain is located in the buttocks and radiates down the bilateral lower extremities accompanied by numbness and tingling.Patient denies groin pain. Assessment & Plan Assessment & Plan (1) Lumbar radiculopathy: Code(s): M54.16 - Radiculopathy, lumbar region Category: Medical Plan Ms. Geiger is a 79-year-old female, who is Beninese speaking presents in the office today, as a new patient, for an evaluation of left hip pain. The patient presented to the ED on 04/20/2024 status post left hip pain for a week. She was encouraged to use Tylenol PRN for pain.? ? While in the office today, the patient reports a fall about three years ago, in 2020, when she was getting out of her daughter?s car. She reports her pain is near the glutes and radiates down her bilateral lower extremity. She states the pain increases when sitting for long periods of time and ambulating long distances. She confirms the use of heat and cold compresses, which gives her relief. ? ? Patient has a significant medical history of dementia and diabetes mellitus.? ? A referral for further evaluation and treatment of her lower back with Physiatry was made in the office today. Follow-up will be PRN, or sooner if needed. ?? ? X-rays of the left hip, obtained on 04/20/2024 and reviewed by me, Jennifer Hu PA-C, revealed: Osteoarthritis. ? Medications: Discontinued lidocaine 5% leave on most painful area for up to 12 hrs Discontinued Reason: Patient no longer taking 1 patch topical DAILY 30 ea 0RF hydrocodone-acetaminophen 5-325 mg partial fill okay; Partial Fill upon patient request. Discontinued Reason: Patient no longer taking 1 tab PO Q6H PRN 8 tabs 0RF pain cyclobenzaprine Discontinued Reason: Patient no longer taking 5 mg PO TID PRN 14 tabs 0RF muscle spasm hydrocodone-acetaminophen 5-325 mg Partial Fill upon patient request. Discontinued Reason: Patient no longer taking 1 tab PO Q6H PRN 8 tabs 0RF pain prednisone Discontinued Reason: Patient no longer taking 40 mg (2 x 20 mg) PO DAILY 10 tabs 0RF Patient Instructions: Scribed by Ingrid Andre medical staff coordinator, for Jennifer Hu PA-C on 04/28/2024 at 2:51 pm, EST.? Coding Level of Care Code New Pt Level 3 (46615) Diagnoses Lumbar radiculopathy M54.16
[2024-04-28 14:47] VITALS: BMI 23.4
== END 2024-04-28 15:18 | disposition home or self-care (01) ==
LOC: HO.HOS 14:30
PROVIDERS: Visit Provider Physician Assistant
DX: M54.16 Radiculopathy, lumbar region (principal)
CPT/HCPCS: 99204

== ENCOUNTER → 2024-04-28 14:30 | Outpatient (BNVA) | payer MEDICARE, SELFPAY | PROVIDERS: Visit Provider Physician Assistant | DX: M54.16 Radiculopathy, lumbar region (principal) | CPT/HCPCS: 99202 ==

== ENCOUNTER 2024-05-19 10:04 | Outpatient (AMB) | payer MEDICARE, SELFPAY ==
[2024-05-19 10:10] VITALS: BMI 23.4
--- NOTE | 2024-05-19 10:10 | MHC.OFFVIS ---
Vital Signs 05/19/24 10:10 Height 4 ft 11 in Weight 116 lb BMI 23.4 Intake Visit Reasons: [employer]- Left sided back pain down leg Intake Note: Zaida is a 79 year old female who presents to the office today for a new patient Left sided back pain down leg. Referral placed by Jennifer Hu. Pt reports a fall about three years ago, in 2020, when she was getting out of her daughter?s car. She reports her pain is near the glutes and radiates down her bilateral lower extremity but her pain is improved today. Left hip Xray done 04/20/24 [employer] Applier Required: Yes Allergies Penicillins Allergy (Unknown, Verified 05/19/24 10:13) Unknown aspirin [ASA] Allergy (Verified 05/19/24 10:13) Unknown HPI Comments Details: Points to left lateral back/buttocks as source of pain. From fall on stairs, 2 years ago. Pain radiates down to left thigh to calf. Difficulty with walking. Drags left foot/leg when she walks. Also says she has numbness on same distribution. No PT yet. [facility] Medical History Diabetes HTN (hypertension) Social History (Updated 04/28/24 @ 14:45 by Veronique Beckett) Alcohol intake: never Patient Tobacco Use Status: Never used Tobacco Current occupational status: disabled Review of Systems Const All systems reviewed & are unremarkable except as noted in HPI and below Physical Exam Vital Signs: BMI result Body Mass Index 23.4 Constitutional: Patient appears to be in no acute distress, well nourished and well developed. Patient was appropriately conversant and oriented. MSK: No specific abnormalities found on inspection of the spine and all extremities. No pain with palpation over the lumbar area. Tight on left ITB. Lumbar ROM was full. Bilateral hip, knee and ankle ROM WNL. No ligamentous laxity or crepitance. No increased effusion. Straight-leg raising test positive left. FABERE test positive left. Give-way weakness on left hip flexion and knee extension, 4/5. Neurological: Give-way weakness on left hip flexion and knee extension, 4/5. Dorsiflexion 5/5. Rest of MMT normal 5/5. No increased tone or hyperreflexia. Ruiz?s negative bilaterally. Babinski was down going bilaterally. Clonus was negative. Gait is antalgic without loss of balance. Results Reviewed Results Reviewed: Ordering Physician: Jesusita Hooper DO Date of Service: 05/28/22 Procedure(s): XR lumbar spine 2-3V Accession Number(s): [id number] cc: Jesusita Hooper DO~ EXAMINATION: XR LUMBOSACRAL SPINE CLINICAL INFORMATION: Fall. Pain. COMPARISON: None TECHNIQUE: Three views of the lumbosacral spine. FINDINGS: Bone alignment is normal. No fracture or dislocation is seen. There is mild degenerative disc disease at L2-L3 L3-L4 and L4-L5. There is mild spondylosis greatest at L2-L3. There is lower lumbar spine facet arthritis. There is atherosclerotic disease. XR/XR lumbar spine 2-3V IMPRESSION: Degenerative changes. No fracture is seen. Ordering Physician: Sara David Date of Service: 04/20/24 Procedure(s): XR hip LT w PEL1V Accession Number(s): [id number] cc: Sara David; Physician,Unknown ~ EXAMINATION: XR HIP, LEFT WITH PELVIS CLINICAL INFORMATION: Left hip pain COMPARISON: X-ray pelvis and bilateral hips on 05/28/2022 TECHNIQUE: Frontal x-ray of the pelvis, Frontal and Frog leg lateral x-rays of left hip. FINDINGS: BONES: Bony structures are intact. There is no focal bone destruction or periosteal reaction seen. JOINTS: Alignment of hip joint is normal. SOFT TISSUE: Soft tissue is normal. No radiopaque foreign body or abnormal air collection is seen. XR/XR hip LT w PEL1V IMPRESSION: 1. Unchanged Normal pelvis x-ray. No fracture or dislocation is seen. 2. Unchanged Normal x-ray of left hip. No fracture or dislocation or signs of avascular necrosis are seen. Assessment & Plan Assessment & Plan (1) Lumbar radiculopathy: Code(s): M54.16 - Radiculopathy, lumbar region Category: Medical (2) Left thigh pain: Code(s): M79.652 - Pain in left thigh Category: Medical Plan Symptoms suggestive of left L5-S1 radiculitis. Referring to PT- to work on gait, strength on LLE. Lumbar and femur x-rays today, more for completion. It would be reasonable to obtain further imaging such as MRI. An MRI would help rule out any serious condition, guide treatment and assess prognosis for recovery. Specifically ruling out left sided nerve compression or disc herniation. Assessment and plan discussed with patient, and patient was agreeable. All questions were answered thoroughly. Follow up after MRI. Yvette Pedro MD, ANTOINE Board Certified, [place] [employer] and [employer] (ABPMR) Board Certified, [place] [employer] Electro[employer] (ABEM) Orders: Orders XR femur LT 2V Today M54.16 - Radiculopathy, lumbar region, M79.652 - Pain in left thigh XR lumbar spine 2-3V Today M54.16 - Radiculopathy, lumbar region, M54.9 - Dorsalgia, unspecified, M79.652 - Pain in left thigh PT Evaluation and Treatment Today M54.16 - Radiculopathy, lumbar region, M79.652 - Pain in left thigh MR lumbar spine wo con Today M54.16 - Radiculopathy, lumbar region, M79.652 - Pain in left thigh Coding Level of Care Code New Pt Level 4 (83073) Diagnoses Lumbar radiculopathy M54.16 Left thigh pain M79.652
== END 2024-05-19 10:31 | disposition home or self-care (01) ==
PROVIDERS: Visit Provider Physical Medicine & Rehabilitation
DX: M54.16 Radiculopathy, lumbar region (principal); M79.652 Pain in left thigh
CPT/HCPCS: 99203

== ENCOUNTER 2024-05-19 10:04 | Outpatient (REF) | payer MEDICARE, SELFPAY ==
--- NOTE | ~2024-05-19 | XR_ITS ---
EXAMINATION: XR LUMBOSACRAL SPINE CLINICAL INFORMATION: Reason for Exam M54.9 - Dorsalgia, unspecified COMPARISON: X-ray lumbosacral spine May 2022 TECHNIQUE: Three views of the lumbosacral spine. FINDINGS: Vertebral bodies normally aligned with normal height. Degenerative osseous changes noted throughout most prominent at the L3-4 level where there is qexc-ox-rniouhee disc space narrowing. This is unchanged. Probable facet arthrosis bilaterally at L4-5 and L5-S1 unchanged. Additional spondylosis of the partially visualized dorsal spine unchanged. Extensive arterial calcification noted throughout. This is unchanged. Surgical clips overlie the right upper quadrant. Partially visualized pelvis including sacroiliac joints are normal. XR/XR lumbar spine 2-3V IMPRESSION: Idlu-bi-bgthtrtq spondylosis of the lumbosacral spine unchanged compared with May 2022. Electronically signed by: Justin Bocanegra MD 06/12/2024 07:02 AM EDT
--- NOTE | ~2024-05-19 | XR_ITS ---
EXAMINATION: XR FEMUR, LEFT CLINICAL INFORMATION: Pain in the left thigh COMPARISON: X-ray of the left hip April 2014 TECHNIQUE: AP and lateral views of the left femur were obtained. FINDINGS: The femur is normal. Left hip joint normal. Left knee: Mild osteoarthritis with marginal osteophytes about the medial compartment. Prominent arterial calcification. XR/XR femur LT 2V IMPRESSION: Left femur normal. Incidental note made of osteoarthritis the left knee. Extensive calcific atherosclerotic disease Electronically signed by: Justin Bocanegra MD 06/12/2024 07:03 AM EDT RP
== END 2024-05-19 10:05 | disposition home or self-care (01) ==
LOC: HO.HOSX 10:04
PROVIDERS: Visit Provider Physical Medicine & Rehabilitation
DX: M79.652 Pain in left thigh (principal); M54.16 Radiculopathy, lumbar region
CPT/HCPCS: 72100; 73552; 99202

== ENCOUNTER 2024-07-28 09:38 | Emergency (ER) | payer MEDICARE, SELFPAY ==
--- NOTE | ~2024-07-28 | XR_ITS ---
EXAMINATION: XR HIP, LEFT CLINICAL INFORMATION: Hip pain status post fall COMPARISON: 04/20/2024 TECHNIQUE: AP upright, AP supine, and frog-leg lateral views of the left hip. FINDINGS: No fracture. Alignment is anatomic. Hip joint space is mildly narrowed with mild bony spurring. Vascular calcifications. Degenerative changes in the visualized lumbar spine. Soft tissues are unremarkable. XR/XR hip LT w PEL1V IMPRESSION: Mild degenerative change in the left hip. No fracture. Electronically signed by: Kameron Garcia MD 07/28/2024 12:41 PM EDT
--- NOTE | ~2024-07-28 | XR_ITS ---
EXAMINATION: XR LUMBOSACRAL SPINE CLINICAL INFORMATION: Low back pain radiating down the left leg. COMPARISON: None available. TECHNIQUE: Three views of the lumbosacral spine. FINDINGS: There is diffuse osteopenia and degenerative change observed at L3-4. Facet degenerative change L5-S1 noted. No fracture. No destructive process. SI joints are symmetric. Vascular calcification in the aorta as well as left upper quadrant are noted. There are surgical clips in the right upper quadrant. XR/XR lumbar spine 2-3V IMPRESSION: Degenerative changes observed but no acute findings or fracture. Electronically signed by: Mitchell Greene MD 07/28/2024 01:07 PM EDT
[2024-07-28 09:47] VITALS: BP 120/60; BP 122/64; PULSE 82; PULSE 83; RESP 20; TEMP 37.2; O2SAT 92; O2SAT 97; BMI 27.5
--- NOTE | 2024-07-28 10:10 | ECG_ITS ---
Test Reason : weakness Blood Pressure : / mmHG Vent. Rate : 072 BPM Atrial Rate : 072 BPM P-R Int : 122 ms QRS Dur : 066 ms QT Int : 414 ms P-R-T Axes : 047 035 035 degrees QTc Int : 453 ms Sinus rhythm with Premature atrial complexes Otherwise normal ECG When compared with ECG of 09-OCT-2022 11:48, Premature atrial complexes are now Present Referred By: Ingrid Colon Electronically Signed By:MILTON YOUSIF
[2024-07-28 10:20] LABS: MANUAL DIFF FLAG NO
[2024-07-28 10:23] LABS: Basophils Percent Auto 0.4 % (0-2); Eosinophils Absolute Auto 0.1 X10*3/uL (0.0-0.4); Eosinophils Percent Auto 0.9 % (0-4); Hematocrit 41.3 % (37.0-47.0); Hemoglobin 13.5 g/dl (12.0-16.0); Imm Gran Abs Auto 0.07 X10*3/uL (0.00-0.03); Imm Gran Pct Auto 0.7 % (0.0-0.4); Lymphocytes Absolute Auto 1.1 X10*3/uL (1.2-4.9); Lymphocytes Percent Auto 10.8 % (20-40); Mean Corpuscular HGB Conc 32.7 g/dl (31.0-35.0); Mean Corpuscular Hemoglobin 28.1 pg (27.0-33.0); Mean Platelet Volume 12.2 fL (9.4-12.3); Monocytes Absolute Auto 0.5 X10*3/uL (0.1-1.2); Monocytes Percent Auto 4.9 % (2-11); Neutrophils Absolute Auto 8.2 x10*3/uL (2.0-8.3); Neutrophils Percent Auto 82.3 % (45-73); Platelet Count 165 X10*3/uL (160-400); Red Cell Distribution Width 13.6 % (11.0-16.0); White Blood Count 9.9 X10*3/uL (4.8-10.8)
--- NOTE | 2024-07-28 10:40 | ED_ITS ---
HPI - General Adult General Chief complaint: General Medical Stated complaint: L FLANK PAIN X2D PER EMS Time Seen by Provider: 07/28/24 09:40 Source: patient, family (friend/follow up rep) and supervisor [employer] Mode of arrival: EMS Limitations: language barrier History of Present Illness ED Provider: Danielle Colon PA-C HPI narrative: 79 yo Tristanian-speaking F with a PMH of HTN, HDL, T2DM, dementia, lumbar radiculopathy, left thigh pain presents to the ED from home via EMS c/o left hip and lumbosacral back pain. Patient states that she has chronic pain and arthritis in her left hip the reports as the pain has been worsening recently and new onset of muscle cramps and varicose veins starting a few days ago. She states that the pain starts in her lower back/left hip area and radiates down the back and side of her left thigh. Patient and follow up rep/friend denies any recent falls or trauma to the area. 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 She states that since the resection of the tumor she has had pain in that left hip. Patient has been using icy hot, lidocaine patches, and Tylenol as needed for the pain with some improvement. Patient does use a walker at home. Patient is compliant with her medications and has a primary care appointment next week. Endorses increased frequency in urination, burning with urination, baseline weakness. Denies foul odor of urine, CP, SOB, pain anywhere else, dizziness, blurry vision, paresthesias. MD complaint: LLE pain Location: back and pelvis Radiation: extremity Quality: stabbing Pain Consistency: intermittent Relieving factors: rest Exacerbating factors: movement Associated symptoms: other (dysuria) Treatments prior to arrival: none Related Data Previous Rx's ?Medication ?Instructions ?Recorded acetaminophen 500 mg tablet 500 mg PO Q6H PRN fever or pain 06/17/22 (Tylenol Extra Strength) #14 tabs cyclobenzaprine 5 mg tablet 5 mg PO Q8H PRN pain (scale score 06/17/22 7-10) 5 days #14 tabs diclofenac sodium 3 % topical gel 1 appl topical BID PRN pain (scale 06/17/22 score 1-3) #100 grams lidocaine 5 % topical patch 1 patch topical DAILY PRN pain #30 06/17/22 (Lidoderm) ea cefuroxime axetil 250 mg tablet 250 mg PO BID 7 days #14 tabs 07/28/24 Allergies Allergy/AdvReac Type Severity Reaction Status Date / Time Penicillins Allergy Unknown Unknown Verified 07/28/24 09:54 aspirin [ASA] Allergy Unknown Verified 07/28/24 09:54 Review of Systems 2 Review of Systems: Yes all other systems are reviewed and are negative [facility] Past Medical History Medical History Diabetes HTN (hypertension) Social History Social History Alcohol intake: never Patient Tobacco Use Status: Never used Tobacco Smoked in Last 30 Days: No Use of substances other than those prescribed or required for medical reasons: No Advance Directives: No Do you have a plan to hurt others: No Plan Current occupational status: disabled Physical Exam ED Vital Signs: Vital Signs - 24 hr 07/28/24 09:47 07/28/24 12:12 07/28/24 13:38 Temperature 98.9 F 98.1 F 98.0 F Pulse Rate 82 78 80 Respiratory Rate 20 18 18 Blood Pressure 120/60 119/74 123/74 Pulse Oximetry 92 94 96 Oxygen Delivery Method Room Air Room Air Room Air 07/28/24 13:51 Temperature 98.0 F Pulse Rate 80 Respiratory Rate 18 Blood Pressure 123/74 Pulse Oximetry 96 Oxygen Delivery Method Room Air BMI result Body Mass Index 27.5 Appearance: Alert. Oriented X2. Sitting comfortably in bed, no acute distress. Head: normocephalic, atraumatic. EENT: No obvious external abnormalities. Neck: Normal inspection. Neck supple. CVS: Normal heart rate and rhythm. Pulses normal. Respiratory: No respiratory distress. Abdomen: Soft and nontender. No CVA tenderness. Skin: Skin warm and dry. Normal skin color. Normal skin turgor. No rashes. Extremities: Moderate pain tenderness elicited upon palpation of the with hip and the spinous processes of the lower lumbar and sacral area, pain with ROM and mild limitation to ROM of hip flexion, extension, rotation, and abduction, full ROM of knee. No lower extremity edema. No joint swelling. No warmth, erythema. DP/PT and popliteal pulses intact. Neuro/psych: Oriented X2. Grossly normal, nonfocal. Normal speech. Baseline dementia. steady gait Medications Administered Discontinued Medications Generic Name Dose Route Start Last Admin Trade Name Donn PRN Reason Stop Dose Admin Acetaminophen 975 mg 07/28/24 11:08 07/28/24 11:46 Acetaminophen 325 Mg Tablet PO 07/28/24 11:09 975 mg ONCE ONE Administration Cefuroxime Axetil 250 mg 07/28/24 12:17 07/28/24 12:24 Cefuroxime Axetil 250 Mg Tablet PO 07/28/24 12:18 250 mg ONCE ONE Administration Lidocaine 1 patch 07/28/24 11:09 07/28/24 11:47 Lidocaine 4 % Patch Adh..Patch TRANSDERMA 07/28/24 11:10 1 patch ONCE ONE Administration Protocol Medical Decision Making Medical Decision Making MDM Narrative: 79 yo Tristanian-speaking F with a PMH of HTN, HDL, T2DM, dementia, lumbar radiculopathy, left thigh pain presents to the ED from home via EMS c/o left hip and lumbosacral back pain. On exam, patient is sitting comfortably in bed, baseline dementia, nontoxic appearing, neurovascularly intact, moderate pain tenderness elicited upon palpation of the with hip and the spinous processes of the lower lumbar and sacral area, pain with ROM and mild limitation to ROM of hip flexion, extension, rotation, and abduction, full ROM of knee. No lower extremity edema. No joint swelling. No warmth, erythema. DP/PT and popliteal pulses intact. Concern for sciatica, left hip fracture, left hip dislocation, disc herniation, acute cystitis, nephrolithiasis, pyelonephritis unlikely cauda equina, osteomyelitis, cellulitis. Vital signs are stable with a BP of 119/74, HR 78, afebrile at 98.1 F, saturating well on room air at 94%. Plan: EKG, lumbar spine and left hip XR, labs, UA, pain control with acetaminophen, lidocaine patch, re-evaluation Patient's urine is positive for a UTI, plan for Ceftin ABX. not septic EKG with no acute abnormalities. Labs did no acute abnormalities. Lumbar spine and left hip XR showing mild degenerative change of the left hip with no acute findings or fracture. she is ambulating well in the ER Patient is safe and stable for discharge home. Follow up with PCP. Differential Diagnosis Differential Diagnoses: The differential diagnosis associated with the presentation includes As above. Admission/Observation Consideration of admission/observation: Escalation of care including admission/observation considered Lab Data MDM Lab Attestation statement: I reviewed the patient's lab results. no leukocytosis, no tiffanie 07/28/24 10:17 07/28/24 10:17 Labs: Lab Results 07/28/24 07/28/24 Range/Units 10:17 11:46 WBC 9.9 (4.8-10.8) X10*3/uL RBC 4.80 (4.20-5.50) X10*6/uL Hgb 13.5 (12.0-16.0) g/dl Hct 41.3 (37.0-47.0) % MCV 86.0 (80.0-98.0) fL MCH 28.1 (27.0-33.0) pg MCHC 32.7 (31.0-35.0) g/dl RDW 13.6 (11.0-16.0) % Plt Count 165 (160-400) X10*3/uL MPV 12.2 (9.4-12.3) fL Immature Gran % (Auto) 0.7 H (0.0-0.4) % Neut % (Auto) 82.3 H (45-73) % Lymph % (Auto) 10.8 L (20-40) % [place] % (Auto) 4.9 (2-11) % Eos % (Auto) 0.9 (0-4) % Baso % (Auto) 0.4 (0-2) % Lymph # (Auto) 1.1 L (1.2-4.9) X10*3/uL [place] # (Auto) 0.5 (0.1-1.2) X10*3/uL Eos # (Auto) 0.1 (0.0-0.4) X10*3/uL Baso # (Auto) 0.0 (0.0-0.2) X10*3/uL Abs Immat Gran (auto) 0.07 H (0.00-0.03) X10*3/uL Absolute Neuts (auto) 8.2 (2.0-8.3) x10*3/uL Absolute Nucleated RBC 0.000 (0.0-0.012) X10*3/uL Nucleated RBC % (auto) 0.0 (0.0-0.2) /100WBC Sodium 143 (135-145) mmol/L Potassium 4.0 (3.3-5.1) mmol/L Chloride 109 H (96-108) mmol/L Carbon Dioxide 26 (22-29) mmol/L Anion Gap 12 (12-20) BUN 14 (9-16) mg/dL Creatinine 0.84 (0.5-1.4) mg/dL Estim Creat Clear Calc 53.1 Estimated GFR > 60 Random Glucose 204 H (60-115) mg/dL Calcium 9.6 (8.4-10.2) mg/dL Magnesium 2.1 (1.6-2.6) mg/dL Total Bilirubin 0.8 (0.0-1.0) mg/dL Direct Bilirubin 0.3 (0.0-0.5) mg/dL AST 17 (5-31) U/L ALT 18 (0-31) U/L Alkaline Phosphatase 59 (39-117) U/L Total Protein 6.6 (6.5-8.0) g/dL Albumin 4.0 (3.5-5.0) g/dL Urine Color Yellow Urine Appearance Turbid Urine pH 5.0 (5.0-9.0) Ur Specific [place] >= 1.030 H (1.005-1.025) Urine Protein Trace (Neg-Trace) mg/dL Urine Glucose (UA) >=1000 H (Negative) mg/dL Urine Ketones Negative (Negative) mg/dL Urine Blood Small (1+) H (Negative) Urine Nitrite Positive H (Negative) Ur Leukocyte Esterase Moderate (2+) H (Negative) Urine RBC 0-2 (0-2) /HPF Urine WBC >50 H (0-5) /HPF Urine WBC Clumps Present Ur Squamous Epith Cells 3-5 (0-2) /HPF Urine Bacteria 4+ (None Seen) Hyaline Casts 0-2 (0-2) /LPF Independent Interpretation I performed an independent interpretation of an: Plain X-Ray Interpretation: no acute hip fx, agree w/ radiology read Radiology Impression Discussion of test interpretation with radiology: I have reviewed the radiologist's reading. Independent Historian Clinical information obtained from an independent historian. History obtained from or confirmed by: Friend External Record Review External record reviewed: Outpatient record, Prior outpatient labs and Prior outpatient radiology Prescription Management I considered prescription management with: Pain Medication and Antibiotic Chronic Conditions Patient?s care impacted by: Other (dementia) Social Determinants Patient?s care significantly limited by Social Determinants of Health including: Other Social Determinant of Health Critical Care Time Critical Care Time Critical Care Time: No Discharge Plan Discharge Clinical Impression: Acute UTI, Arthritis Patient Disposition: Home, Self-Care Instructions: Urinary Tract Infection in Older Adults (ED) Additional Instructions: You came to the emergency department today for left hip and lower back pain. Your hip x-ray showed mild degenerative change, but no fracture. Your lower back x-ray showed some degenerative change as well but no concerning findings or fracture. Your urine was positive for a urinary tract infection, also known as a UTI. We have prescribed antibiotics. Please pick them up from the pharmacy and take the entire course as prescribed. Follow-up with your primary care physician as needed, and lidocaine patch and take Tylenol as needed for pain. Return with any new or worsening symptoms. Prescriptions: New cefuroxime axetil 250 mg tablet 250 mg PO BID 7 Days Qty: 14 0RF No Action acetaminophen [Tylenol Extra Strength] 500 mg tablet 500 mg PO Q6H PRN (Reason: fever or pain) Qty: 14 0RF lidocaine [Lidoderm] 5 % adhesive patch,medicated 1 patch topical DAILY MDD remove after 12 hours PRN (Reason: pain) Qty: 30 0RF Rx Instructions: leave on most painful area for up to 12 hrs cyclobenzaprine 5 mg tablet 5 mg PO Q8H PRN (Reason: pain (scale score 7-10)) 5 Days Qty: 14 0RF diclofenac sodium 3 % gel 1 appl topical BID PRN (Reason: pain (scale score 1-3)) Qty: 100 0RF Interventions: ED Discharge Assessment Last Done: 07/28/24 13:51 Discharge Date/Time: 07/28/24 13:52 Print Language: Tristanian
[2024-07-28 10:42] LABS: Alanine Aminotransferase 18 U/L (0-31); Alkaline Phosphatase 59 U/L (39-117); Anion Gap 12 (12-20); Aspartate Amino Transferase 17 U/L (5-31); Bilirubin Direct 0.3 mg/dL (0.0-0.5); Bilirubin Total 0.8 mg/dL (0.0-1.0); Blood Urea Nitrogen 14 mg/dL (9-16); Calcium 9.6 mg/dL (8.4-10.2); Carbon Dioxide 26 mmol/L (22-29); Chloride 109 mmol/L (96-108); Creatinine Clr Calc Pharmacy 53.1; Estimated Glomerular Filt Rate > 60; Glucose Random 204 mg/dL (60-115); Magnesium 2.1 mg/dL (1.6-2.6); Sodium 143 mmol/L (135-145); Total Protein 6.6 g/dL (6.5-8.0)
[2024-07-28] MEDS: Acetaminophen 325 MG TABLET 975 MG PO (11:46)
[2024-07-28] MEDS: Lidocaine 4 % Patch ADH..PATCH 1 PATCH TRANSDERMA (11:47)
[2024-07-28 11:55] LABS: Appearance Urine Turbid; Color Urine Yellow; Glucose Urine UA >=1000 mg/dL (Negative); Leukocyte Esterase Urine Moderate (2+) (Negative); Nitrite Urine Positive (Negative); Specific Gravity - Urine >= 1.030 (1.005-1.025); UMIC TRIGGER UACC YES; Urine Blood Small (1+) (Negative); Urine Ketones Negative (Negative); Urine Protein Trace mg/dL (Neg-Trace)
[2024-07-28 12:12] VITALS: BP 119/74; PULSE 78; RESP 18; TEMP 36.7; O2SAT 94
[2024-07-28 12:20] LABS: Bacteria Urine 4+ (None Seen); Hyaline Casts Urine 0-2 /LPF (0-2); RBC Urine 0-2 /HPF (0-2); UACC Culture Trigger YES; WBC Clumps Urine Present; WBC Urine >50 /HPF (0-5)
[2024-07-28] MEDS: cefuroxime axetiL 250 MG TABLET PO (12:24)
[2024-07-28 13:38] VITALS: BP 123/74; PULSE 80; RESP 18; TEMP 36.7; O2SAT 96
[2024-07-28 13:51] VITALS: BP 123/74; PULSE 80; RESP 18; TEMP 36.7; O2SAT 96
== END 2024-07-28 13:52 | disposition home or self-care (01) ==
PROVIDERS: Physician Assistant; Emergency Provider Emergency Medicine Emergency Medical Services
DX: N39.0 Urinary tract infection, site not specified (principal); R30.0 Dysuria; I10 Essential (primary) hypertension; E11.9 Type 2 diabetes mellitus without complications; M79.652 Pain in left thigh; M54.50 Low back pain, unspecified; R10.2 Pelvic and perineal pain; R94.31 Abnormal electrocardiogram [ECG] [EKG]; Z79.899 Other long term (current) drug therapy
CPT/HCPCS: 36415; 72100; 73502; 80048; 80076; 81001; 83735; 85025; 87086; 87088; 87186; 93005; 99283; 99285

== ENCOUNTER → 2024-07-28 10:10 | Outpatient (BNV) | payer MEDICARE, SELFPAY | PROVIDERS: Emergency Provider Emergency Medicine Emergency Medical Services; Visit Provider Internal Medicine | DX: I49.1 Atrial premature depolarization (principal) | CPT/HCPCS: 93010 ==

== ENCOUNTER 2024-08-08 11:44 | Emergency (ER) | payer MEDICARE, SELFPAY ==
--- NOTE | ~2024-08-08 | XR_ITS ---
EXAMINATION: XR KNEE, LEFT CLINICAL INFORMATION: Fall, posterior tendinous COMPARISON: None available. TECHNIQUE: Four views of the left knee. FINDINGS: Alignment is anatomic. No visible acute fracture or dislocation. No significant effusion. Severe medial compartment arthritis. Mild lateral compartment arthritis. Prominent patellofemoral arthritis, seen on the lateral view. Extensive vascular calcifications.. XR/XR knee LT 4V IMPRESSION: Tricompartment osteoarthritis. Severe medial compartment arthritis. No radiographic evidence of acute fracture. No significant effusion. Electronically signed by: Zander Stern MD 08/08/2024 01:41 PM EDT
--- NOTE | ~2024-08-08 | US_ITS ---
EXAMINATION: US TRIPLEX LOWER EXTREMITY, LEFT CLINICAL INFORMATION: Calf pain COMPARISON: None available. TECHNIQUE: Color-flow triplex imaging with spectral analysis and compression Doppler were performed on the left lower extremity. FINDINGS: Respiratory variation, normal compression and augmented flow are noted throughout the left lower extremity. The visualized common femoral vein, superficial femoral vein, profunda femoral vein, popliteal vein and midcalf peroneal and posterior tibial venous segments show no evidence of deep venous thrombosis. There is no Camarillo's cyst. US/US venous duplex LE LT IMPRESSION: No evidence of deep venous thrombosis involving the left lower extremity. Electronically signed by: Henrietta Joaquin MD 08/08/2024 02:34 PM EDT RP
[2024-08-08 11:54] VITALS: BP 119/59; BP 126/66; PULSE 66; PULSE 77; RESP 18; TEMP 37.2; O2SAT 96; BMI 25.3
[2024-08-08 12:05] LABS: Glucose, Whole Blood 166 mg/dL (60-115)
--- NOTE | 2024-08-08 12:50 | ED_ITS ---
HPI - General Adult General Chief complaint: Fall Stated complaint: LT LEG PAIN Time Seen by Provider: 08/08/24 12:50 Source: patient, EMS, RN notes reviewed, english adjunct faculty and other (mobile patrol officer) Mode of arrival: EMS Limitations: language barrier History of Present Illness ED Provider: Gabe HPI narrative: Patient is an 79-year-old Chinese speaking female with history of HTN, DM presenting to the emergency department with complaint of left knee pain. Patient reporting that she had a fall two days ago. Collections Agent reports that he is with the patient 06/05, and she has not had any recent falls. He reports a fall many years ago and states that patient has memory impairment. He reports that patient has been evaluated for similar knee pain many times, has had x-rays which show OA. He states that she uses a walker and cane at baseline. When asked to specify the location of her pain, patient points to her left posterior calf. Collections Agent reports that he has given Tylenol, lidocane patches without relief. MD complaint: left knee and calf pain Treatments prior to arrival: other Related Data Previous Rx's ?Medication ?Instructions ?Recorded acetaminophen 500 mg tablet 500 mg PO Q6H PRN fever or pain 06/17/22 (Tylenol Extra Strength) #14 tabs cyclobenzaprine 5 mg tablet 5 mg PO Q8H PRN pain (scale score 06/17/22 7-10) 5 days #14 tabs diclofenac sodium 3 % topical gel 1 appl topical BID PRN pain (scale 06/17/22 score 1-3) #100 grams lidocaine 5 % topical patch 1 patch topical DAILY PRN pain #30 06/17/22 (Lidoderm) ea cefuroxime axetil 250 mg tablet 250 mg PO BID 7 days #14 tabs 07/28/24 Allergies Allergy/AdvReac Type Severity Reaction Status Date / Time Penicillins Allergy Unknown Unknown Verified 08/08/24 11:58 aspirin [ASA] Allergy Unknown Verified 08/08/24 11:58 Review of Systems Review of Systems: As per HPI Yes all other systems are reviewed and are negative Constitutional: Constitutional: Reports as per HPI [facility] Past Medical History Medical History Diabetes HTN (hypertension) Social History Social History Alcohol intake: never Patient Tobacco Use Status: Never used Tobacco Smoked in Last 30 Days: No Advance Directives: No Advance Directives Information Provided: Yes Current occupational status: disabled Physical Exam ED Vital Signs: Vital Signs - 24 hr 08/08/24 11:54 08/08/24 13:39 08/08/24 13:39 Temperature 98.9 F 98.2 F Pulse Rate 77 78 76 Respiratory Rate 18 18 18 Blood Pressure 119/59 L 120/58 L 120/58 L Pulse Oximetry 96 94 Oxygen Delivery Method Room Air BMI result Body Mass Index 25.3 Vital signs have been reviewed and appear to be correct. Blood pressure normal. Heart rate normal. Respiratory rate normal. Temperature normal. Oxygen saturation normal. Const General: cooperative, healthy appearing and no acute distress Orientation/consciousness: oriented to person, oriented to place, oriented to time and patient oriented x3 Limitations: no limitations HENMT Head: Yes normocephalic and Yes atraumatic Ears: external ears normal General nose exam: Normal external nose present Face and sinus: Yes face symmetric Mouth: oropharynx normal and moist mucous membranes Throat: Yes uvula midline Eyes Pupils: Equal, round and reactive pupils present Neck Neck: Yes normal visual inspection and Yes supple Resp Effort & Inspection: normal respiratory effort and able to speak in complete sentences Auscultation: clear to auscultation bilaterally Cardio Rate: regular rate Rhythm: regular rhythm Heart sounds: S1 normal heart sound present and S2 normal heart sound present GI Palpation (GI): Soft to palpation and nontender Auscultation: normoactive bowel sounds General: Yes no CVA tenderness Back/Spine/Pelvis Back: no CVA tenderness Skin General skin exam: elasticity normal and turgor normal Neuro General: oriented to person, oriented to place, oriented to time, patient oriented x3, moves all extremities, no focal motor deficits and CN's II-XI intact bilaterally Cranial nerves: Yes Equal, round and reactive pupils present Cognition (Neuro): normal cognition Extrem General: Yes full ROM, Yes no pedal edema and Yes no calf tenderness Left lower extremity: knee Details: normal to inspection, normal ROM and knee ligament exam normal; no tenderness, no swelling, no ecchymosis and no unusual warmth, lower leg Details: tenderness Location: of the posterior calf, no edema and other (varicose veins left posterior calf); no erythema and foot Details: vascular exam Details: dorsalis pedis pulse present, posterior tibial pulse present and normal capillary refill Psych Mental Status: mental status grossly normal Affect: normal affect Thought process: Normal thought process present Medications Administered Discontinued Medications Generic Name Dose Route Start Last Admin Trade Name Donn PRN Reason Stop Dose Admin Acetaminophen 650 mg 08/08/24 13:57 08/08/24 14:19 Acetaminophen 325 Mg Tablet PO 08/08/24 13:58 650 mg ONCE ONE Administration Medical Decision Making Medical Decision Making [facility] Narrative: Patient is an 79-year-old Chinese speaking female with history of HTN, DM presenting to the emergency department with complaint of left knee/calf pain. On exam patient is awake, A+Ox3, VS WNL, afebrile, normal neurological exam without focal deficits, physical exam findings as above. Given reported symptoms and physical exam findings, initial differential includes DVT, calf strain, osteoarthritis. X-ray left knee notable for edit compartmental Arthritis without effusion. Ultrasound left lower extremity negative for DVT. My interpretation is in agreement with the radiologist's interpretation. Feel symptoms are due to acute exacerbation of chronic pain. Results discussed with patient and mobile patrol officer and all questions answered. Advised to continue with Tylenol, lidocaine patches. Will send prescription for diclofenac gel. Follow up with PCP, may need to see pain management. Return precautions discussed. In-person puppet developer was utilized for all interactions, assessments, and discussions. Differential Diagnosis Differential Diagnoses: The differential diagnosis associated with the presentation includes As per [facility] Lab Data As per [facility] Labs: Lab Results 08/08/24 Range/Units 12:01 POC Glucose 166 H (60-115) mg/dL Independent Interpretation I performed an independent interpretation of an: Plain X-Ray and Ultrasound Interpretation: X-ray left knee notable for edit compartmental Arthritis without effusion. Ultrasound left lower extremity negative for DVT. Radiology Impression Discussion of test interpretation with radiology: I have reviewed the radiologist's reading. Radiologist Impression: US/US venous duplex LE LT IMPRESSION: No evidence of deep venous thrombosis involving the left lower extremity. XR/XR knee LT 4V IMPRESSION: Tricompartment osteoarthritis. Severe medial compartment arthritis. No radiographic evidence of acute fracture. No significant effusion. External Record Review External record reviewed: Inpatient record, Office record and Outpatient record Prescription Management I considered prescription management with: Pain Medication Discharge Plan Discharge Clinical Impression: Chronic pain of left knee Patient Disposition: Home, Self-Care Instructions: Chronic Pain (ED), Arthritis (ED) Additional Instructions: You were evaluated in the emergency department today for left knee and lower leg pain. Your evaluation including x-ray and ultrasound did not show evidence of conditions requiring emergent medical treatment this time. We recommend that you continue to use Tylenol and topical lidocaine patches for your pain. You are also being prescribed diclofenac gel which you can apply directly to the areas of discomfort. We recommend that you follow-up with your primary care provider. You are also being referred to pain management for further evaluation of your symptoms. Return to the emergency department with new or concerning symptoms. Prescriptions: No Action acetaminophen [Tylenol Extra Strength] 500 mg tablet 500 mg PO Q6H PRN (Reason: fever or pain) Qty: 14 0RF lidocaine [Lidoderm] 5 % adhesive patch,medicated 1 patch topical DAILY MDD remove after 12 hours PRN (Reason: pain) Qty: 30 0RF Rx Instructions: leave on most painful area for up to 12 hrs cyclobenzaprine 5 mg tablet 5 mg PO Q8H PRN (Reason: pain (scale score 7-10)) 5 Days Qty: 14 0RF diclofenac sodium 3 % gel 1 appl topical BID PRN (Reason: pain (scale score 1-3)) Qty: 100 0RF cefuroxime axetil 250 mg tablet 250 mg PO BID 7 Days Qty: 14 0RF Referrals: Nomi Segura MD [Physician] - Print Language: Chinese
[2024-08-08 13:39] VITALS: BP 120/58; PULSE 76; PULSE 78; RESP 18; TEMP 36.8; O2SAT 94
[2024-08-08] MEDS: Acetaminophen 325 MG TABLET 650 MG PO (14:19)
[2024-08-08 15:37] VITALS: BP 120/58; PULSE 76; RESP 18; TEMP 36.8; O2SAT 94
== END 2024-08-08 15:38 | disposition home or self-care (01) ==
PROVIDERS: Emergency Provider Emergency Medicine Emergency Medical Services; PCP Physician Assistant
DX: G89.29 Other chronic pain (principal); M25.562 Pain in left knee; M79.662 Pain in left lower leg; E11.9 Type 2 diabetes mellitus without complications; I10 Essential (primary) hypertension
CPT/HCPCS: 73564; 82947; 93971; 99284

== ENCOUNTER 2024-09-03 10:49 | Outpatient (AMB) | payer MEDICARE, SELFPAY ==
--- NOTE | 2024-09-03 11:05 | A.OFFVIS_ITS ---
Vital Signs 09/03/24 11:06 Height 4 ft 11 in Weight 123 lb 7.342 oz BMI 24.9 BP 138/63 Blood Pressure Location Lt brachial Position Sitting Pulse 85 Pulse Source Pulse Oximeter Pulse Oximetry (%) 96 Oxygen Delivery Method Room Air Intake Visit Reasons: ED Referral L leg pain Allergies Penicillins Allergy (Unknown, Verified 09/03/24 11:06) Unknown aspirin [ASA] Allergy (Verified 09/03/24 11:06) Unknown Medication List - Last Reconciled 09/03/24 by Lanie Epps acetaminophen (Tylenol Extra Strength) 500 mg PO Q6H PRN cefuroxime axetil 250 mg PO BID 7 days cyclobenzaprine 5 mg PO Q8H PRN 5 days diclofenac sodium 3% 1 appl topical BID PRN lidocaine 5% (Lidoderm) 1 patch topical DAILY PRN MDD remove after 12 hours HPI Comments Details: Zaida is a very pleasant 79-year-old Frisian-speaking female who presented to the office today for evaluation management of her left lower extremity pain. detective and intelligence analyst Taj, [id number], use for the visit Patient reports that she has been suffering with pain in the left knee and left calf for approximately 3 years. She denies inciting injury, fall, trauma. Recently evaluated in the emergency room where she had an x-ray and ultrasound. Results as per below Complaining of 10/10 pain to the left knee and left calf where she has some varicose veins. Patient reports she has tried ice, rest, elevation, heat, Tylenol without improvement of her symptoms. She denies NSAIDs, PT, chiropractor, acupuncture, massage or previous attempts at injections Patient has diabetes, [id number]. Unknown most recent A1c Pain is worse with standing and walking. In terms of muscle damage condition is described as burning, hot, aching, dull, cramping Pain is negatively impacting patient's enjoyment of life, general activity, walking, sleep Denies current use of anticoagulants Denies implantable devices, pacemaker defibrillator Denies current use of nicotine, tobacco, alcohol or illicit substances [facility] Medical History (Updated 09/03/24 @ 12:48 by Belem Bravo APRN, INSURANCE SALES MANAGER) Dementia Diabetes HTN (hypertension) Social History Alcohol intake: never Patient Tobacco Use Status: Never used Tobacco Current occupational status: disabled Review of Systems Const All systems reviewed & are unremarkable except as noted in HPI and below Physical Exam Vital Signs: Last Vital Signs Pulse 85 09/03/24 11:06 BP 138/63 09/03/24 11:06 Pulse Ox 96 09/03/24 11:06 Oxygen Delivery Method Room Air 09/03/24 11:06 BMI result Body Mass Index 24.9 General: awake, alert, oriented. Answers questions appropriately. Fully engaged in examination. Skin: warm, dry, intact. Varicose veins noted left calf. Tender to palpation HEENT: Normocephalic. Hearing intact. Cardiac: External chest normal in appearance. Respiratory: No cough, audible wheezing or stridor. Abdomen: without gross distension. MS: No obvious swelling or deformities. Left knee: Full range of motion. Positive crepitus. Tender to palpation medial and lateral joint line. Neurological: Oriented to person, place, time and situation. Thought process intact. No gait abnormalities appreciated. Psychiatric: Appropriate mood and affect. Good judgment and insight. Results Reviewed Results Reviewed: 07/2024 US/US venous duplex LE LT FINDINGS: Respiratory variation, normal compression and augmented flow are noted throughout the left lower extremity. The visualized common femoral vein, superficial femoral vein, profunda femoral vein, popliteal vein and midcalf peroneal and posterior tibial venous segments show no evidence of deep venous thrombosis. There is no Camarillo's cyst. IMPRESSION: No evidence of deep venous thrombosis involving the left lower extremity. 07/2024 XR/XR knee LT 4V FINDINGS: Alignment is anatomic. No visible acute fracture or dislocation. No significant effusion. Severe medial compartment arthritis. Mild lateral compartment arthritis. Prominent patellofemoral arthritis, seen on the lateral view. Extensive vascular calcifications.. IMPRESSION: Tricompartment osteoarthritis. Severe medial compartment arthritis. No radiographic evidence of acute fracture. No significant effusion. Assessment & Plan Assessment & Plan (1) Left knee pain: Code(s): M25.562 - Pain in left knee Category: Medical (2) Varicose veins of left lower extremity with pain: Code(s): I83.812 - Varicose veins of left lower extremity with pain Category: Medical Plan Order placed for PT eval and treat Vascular surgery referral for painful varicose vein Diclofenac topical, apply 4 times daily as needed Discussed option for his treatment for her left knee pain including steroid injections. Patient is diabetic, unknown most recent A1c. A1c ordered, if less than 8 will plan for left knee steroid injection. All questions and concerns were answered, patient agrees with the plan. Follow up after PT, sooner if needed Orders: Orders PT Evaluation and Treatment Today M25.562 - Pain in left knee Hemoglobin A1c Today E11.9 - Type 2 diabetes mellitus without complications Referrals Vascular Surgery Referral I83.812 - Varicose veins of left lower extremity with pain Medications: New diclofenac sodium 1% (Arthritis Pain (diclofenac)) apply to single knee 4 grams topical QID PRN 100 grams 0RF pain Discontinued diclofenac sodium 3% Discontinued Reason: Doctor's Order 1 appl topical BID PRN 100 grams 0RF pain (scale score 1-3) Coding Level of Care Code New Pt Level 4 (81102) Complex EM visit Add On G2211 Diagnoses Left knee pain M25.562 Varicose veins of left lower extremity with pain I83.812
[2024-09-03 11:06] VITALS: BP 138/63; PULSE 85; O2SAT 96; BMI 24.9
== END 2024-09-03 11:28 | disposition home or self-care (01) ==
PROVIDERS: PCP Physician Assistant; Visit Provider Registered Nurse Emergency
DX: M25.562 Pain in left knee (principal); I83.812 Varicose veins of left lower extremity with pain
CPT/HCPCS: 99204; G2211

== ENCOUNTER → 2024-09-03 10:49 | Outpatient (BNVA) | payer MEDICARE, SELFPAY | PROVIDERS: PCP Physician Assistant; Visit Provider Registered Nurse Emergency | DX: M25.562 Pain in left knee (principal); I83.812 Varicose veins of left lower extremity with pain | CPT/HCPCS: 99202 ==

== ENCOUNTER 2024-09-18 10:21 | Outpatient (AMB) | payer MEDICARE, SELFPAY ==
[2024-09-18 10:24] VITALS: BMI 24.8
--- NOTE | 2024-09-18 10:24 | A.OFFVIS_ITS ---
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 Sh estates she had fall and hurt her leg a long time ago and states it caused spider veins. Pt states that right LE is weak and sore at night time Accompanied by: Self / Same As Patient Allergies Penicillins Allergy (Unknown, Verified 09/18/24 10:30) Unknown aspirin [ASA] Allergy (Verified 09/18/24 10:30) Unknown HPI HPI ENDOSCOPY SPECIALTY TECHNICIAN/Pain Mngmnt referral for VV with pain: Details: Zaida, a very pleasant and funny 79-year-old mostly [place]-speaking female patient, is presenting today as a referral from pain te for ongoing varicose veins. We utilized Jennifer as an per diem interpreter. Complaints include pain over varicosities particularly in the left lower extremity, swelling of the bilateral lower extremities, cramping, fatigue, and heaviness of the lower extremities. It has been affecting their daily activities including walking and physical activity. It is noted more so in left leg. 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 She does not know the logistics of the surgery or what exactly they removed. There are no family members that know as well and this took place in [place]. Patient denies any history of DVT/ PE. Patient denies any history of phlebitis. Trial of compression includes - elevation with some relief They now present for vascular evaluation regarding their varicose veins. [facility] Medical History Dementia Diabetes HTN (hypertension) Social History Alcohol intake: never Patient Tobacco Use Status: Never used Tobacco Current occupational status: disabled Review of Systems Const Reports as per HPI and Denies weakness ENT Reports Normal hearing present and Denies dizziness Card Reports as per HPI, Denies chest pain, Denies chest pain at rest, Denies chest pain with activity, Denies dyspnea and Denies dyspnea on exertion Resp Reports as per HPI, Denies cough, Denies dyspnea and Denies dyspnea on exertion GI Reports as per HPI, Denies abdominal pain, Denies nausea and Denies vomiting Musc Denies numbness Skin/Breast Reports as per HPI, Denies erythema and Denies wounds Neuro Reports Normal hearing present, Denies dizziness, Denies numbness, Denies Sensory deficit (Neuro) and Denies weakness Psych Reports no additional complaints Endo Reports no additional complaints Physical Exam Vital Signs: BMI result Body Mass Index 24.8 Const General: healthy appearing and no acute distress Orientation/consciousness: patient oriented x3 HEENT Head: Yes normal to inspection Ears: hearing grossly normal bilaterally Mouth: Normal oral and palatal mucosa present Resp Effort & Inspection: normal respiratory effort and able to speak in complete sentences Auscultation: clear to auscultation bilaterally Cardio Jugular venous distension: no JVD Rate: regular rate Rhythm: regular rhythm Heart sounds: S1 normal heart sound present and S2 normal heart sound present Bruits: no abdominal aortic bruits, no carotid bruits, no femoral bruits and no renal bruits Peripheral pulses: Peripheral pulses 2+ throughout GI Inspection: Yes normal to inspection Palpation (GI): No Abdominal aortic bruit present Skin General skin exam: no rashes or lesions noted Wounds: no wounds Hair: normal Neuro General: patient oriented x3 Cranial nerves: Yes Normal hearing present Cognition (Neuro): normal cognition Gait exam (Neuro): Normal gait present Motor exam (neuro): 5/5 motor strength present throughout Sensory Exam: No Sensory deficit (Neuro) Extrem Other: Left lower extremity: Small tortuosities and spider veins noted in the medial aspect of the left lower extremity just [id number] into the right of the tibial area. Painful to palpation. Bilateral lower extremities: 1+ peripheral edema noted. Slight discoloration noted from mid newell to toes CEAP: C -4 E - primary A - superficial P - reflux General: Yes normal to inspection, Yes full ROM, Yes capillary refill normal and Yes normal gait Assessment & Plan Assessment & Plan (1) Varicose veins of left lower extremity with pain: Code(s): I83.812 - Varicose veins of left lower extremity with pain Category: Medical Plan: Zaida is presenting on a referral from pain mgte for ongoing lower extremity swelling as well as varicose veins, worse on the left lower extremity. She states this has been going on for approximately 4 years now. In short, the patient has evidence of venous insufficiency. I have discussed the pathophysiology with the patient. In addition I have provided informational material regarding venous disease to the patient. We have discussed conservative measures including compression, elevation, and exercise. I have also provided a handout regarding appropriate use of compression stockings and where to purchase good compression stockings as well; she is able to read the instructions in [place], we did provider with [employer] compression stockings as well. I have taken the liberty of ordering venous insufficiency testing with the patient. They will follow up with me after testing. The patient had an opportunity to ask questions regarding the treatment plan. All questions were answered. Imaging studies, laboratory studies and physical exam results were discussed and reviewed in detail. No major barriers to understanding were identified. The patient expressed understanding and agreement with the above treatment plan. The patient is aware they should contact our office by phone for worsening of the current condition or the appearance of new symptoms. Thank you for allowing me to participate in the vascular care of this patient. If you have any questions or concerns regarding the treatment for the above condition please do not hesitate to contact me. The office telephone contact is [phone]. This note is constructed using voice recognition software. While every effort has been made to ensure accuracy, missile mechanic errors may have been included. Thank you for allowing me to participate in the care of your patient. Yours sincerely, BLANCA Maddox Orders: Orders US venous duplex LE 1 Week I83.812 - Varicose veins of left lower extremity with pain Coding Level of Care Code New Pt Level 4 (85491) Diagnoses Varicose veins of left lower extremity with pain I83.812
--- OUTSIDE RECORDS SUMMARY | 2024-09-23 07:21 | XMS_ITS | Data Portability ---
Author Organization [facility], [facility] Address [address] [place] [address] Assessment No assessment recorded. Plan of Treatment Reminders Order Date Submit Date Provider Last Modified By Organization Details Last Modified Time Details Appointments None recorded. Lab None recorded. Referral None recorded. Procedures None recorded. Surgeries None recorded. Imaging XR, knee, 4 or more view - 111 R KNEE 4V W/B. SPAN SPEAKING 2023 024 vikas Lord [facility], [address], [place], [address], 4 10:22:06 Medication Orders None recorded. Patient TargetsNo targets recorded. Patient InstructionsNo instructions recorded. Reason for Referral None Reported. Problems Name Problem SNOMED Code Status Onset Date Resolution Date Notes Provider Name and Address Organization Details Recorded Time Pain of right knee joint [id number] Active [address], [facility] 09:27:27 Problem Notes None recorded. Procedures Surgical History Date Name Laterality Status Provider Name and Address Organization Details Recorded Time 01/28/2024 Sports Knee 4&1 completed Yordy Henson PA-C [address], [place], [address], [facility] 01/28/2024 13:30:46 Imaging Results None recorded. Procedure Notes None recorded. Medical Equipment None Reported. Medications Name Sig Start Date Stop Date Status Note LastModified by Organization Details LastModified Time atorvastati n 40 mg tablet TAKE 1 TABLET BY MOUTH DAILY active Not Available Not Available No t Available nystatin 100,000 unit/mL oral suspension TAKE 1 ML BY MOUTH FOUR TIMES DAILY 01/27 completed Not Available Not Available Not Available lisinopril 20 mg tablet TAKE 1 TABLET BY MOUTH EVERY DAY 01/27 completed Not Available Not Available Not Available glipizide ER 5 mg tablet, extended release 24 hr TAKE 1 TABLET BY MOUTH DAILY active Not Available Not Available No t Available melatonin 3 mg tablet TAKE 1 TABLET BY MOUTH EVERY NIGHT AT BEDTIME NEEDED FOR SLEEP. active Not Available Not Available No t Available amlodipine 5 mg tablet TAKE 1 TABLET BY MOUTH EVERY DAY 01/27 completed Not Available Not Available Not Available acetaminoph en 500 mg tablet TAKE 1 TABLET BY MOUTH EVERY 6 HOURS NEEDED FOR MILD PAIN FOR UP TO 10 DAYS active Not Available Not Available No t Available amlodipine 10 mg tablet TAKE 1 TABLET BY MOUTH DAILY active Not Available Not Available No t Available gabapentin 100 mg capsule TAKE 1 CAPSULE BY MOUTH EVERY NIGHT AT BEDTIME 01/27 completed Not Available Not Available Not Available chlorhexidi ne gluconate 0.12 % mouthwash RINSE AND GARGLE 15ML IN MOUTH OR THROAT IF NEEDED FOR WOUND CARE FOR UP TO 14 DAYS. DO NOT SWALLOW 01/27 completed Not Available Not Available Not Available Lantus Solostar U-100 Insulin 100 unit/mL (3 mL) subcutaneou s pen ADMINISTE R 26 UNITS UNDER THE SKIN EVERY MORNING active Not Available Not Available No t Available Jardiance 10 mg tablet TAKE 1 TABLET BY MOUTH EVERY MORNING WITH PLENTY OF FLUIDS THROUGHOU T THE DAY 01/27 completed Not Available Not Available Not Available Jardiance 25 mg tablet TAKE 1 TABLET BY MOUTH DAILY active Not Available Not Available No t Available BD Kady 2nd Gen Pen Needle 32 gauge x 5/32 USE ONCE DAILY 01/27 completed Not Available Not Available Not Available Vitals Date Recorded Body height Body mass index (BMI) Body weight Provider Name and Address Organization Details Last Updated DateTime 01/28/2024 149.86 cm 25.4 kg/m2 61977.64 g ALYSSIA BENJAMIN [place] - [place] [facility] 01/28/2024 09:34:56 Social History None recorded. Functional Status None recorded. Mental Status None recorded. Family History Nothing Reported. Medical History No medical history recorded. Gynecological HistoryNo gynecological history recorded. Obstetrics History GPAL:G 0 P 0 0 0 0 Past Encounters Encounter ID Performer Location Encounter Start Date Encounter Closed Date Diagnosis/Indication Diagnosis SNOMED-CT Code Diagnosis ICD10 Code [id number] [facility] [address] [place] [address] 01/28/2024 09:06:54 02/07/2024 10:22:06 Pain of right knee joint [id number] 86321 M25.561 Osteoarthr itis of right knee joint 4384446015 47468 M17.11 Health Concerns Section Related Observation LastModified by Organization Detai ls LastModified Time None Recorded Concern Status LastModified by Organization Details LastModified Time None Recorded Advance Directives Directive None Recorded Payers Encounter Date Sequence Insurance Name Policy Number Policy Yañez Covered Member ID Yañez Member ID Guarantor Name 01/28/2024 1 [facility] - DOS ON OR AFTER 2023 - ONE CARE (MEDICARE REPLACEMENT/ADV ANTAGE - HMO) Zaida Geiger [id number] Zaida Geiger Notes Date Note Type Note Provider Name and Address Organization Details Recorded Time 01/28/2024 text/html I am seeing the patient today under the supervision of Dr. Martinez who was available but who did not see the patient. HPI:Patient is an 78-year-old female Ethiopian speaking only who presents to the office today with her for right knee pain. Branch Sales Manager services were used for this visit. Patient states that she has been having right knee pain for the last 2 years. Patient states that about 2 years ago she did fall down some stairs when the painStarted. She's had continual pain ever since. She has increased pain with prolonged standing and walking, getting up from a seated position as well as going up and downstairs. Patient has been utilizing Tylenol as needed for pain relief. Denies any mechanical symptoms such as catching, locking, or buckling. Past family, medical, social history and review of systems has been reviewed, updated and is located in the patient? s chart. Examination:Well appearing 78 year-old female in no acute distress. She is alert and oriented x3. Ambulates with a slightly antalgic gait. Right knee reveals no erythema, warmth,Ecchymosis, or swelling. Mild tenderness to palpation of the medial joint line. Nontender to palpation of the lateral joint line. Range of motion of the knee from 0-120 degrees. Retropatellar crepitance noted. The knee is stable to valgus and varus stress testing. Knee strength 5/5 against resistance with flexion and extension. Negative Mauro test. Negative Jakub's maneuver. Calf is soft and nontender. 4 views of the right knee obtained and reviewed in the office today reveal moderate degenerative changes noted within the medial compartment. Evidence of subchondral sclerosis. Minimal osteophyte formation. Degenerative changes noted of the patellofemoral joint. No evidence of fracture. Impression:{{Left Ri ght* Bi-lateral}} Knee osteoarthritis Plan:We discussed the role of conservative management including medications, physical therapy, injection and bracing. At this point the patient was to proceed with injection. Please see procedure note. They will follow up with us as scheduled. Yordy Henson PA-C [address] [facility] [address], [place], [address], [place] - [facility] 01/28/2024 13:31:11 OBGyn Episode No OBEpisode recorded.
== END 2024-09-18 10:48 | disposition home or self-care (01) ==
PROVIDERS: PCP Physician Assistant; Visit Provider Physician Assistant Surgical
DX: I83.812 Varicose veins of left lower extremity with pain (principal)
CPT/HCPCS: 99204

== ENCOUNTER → 2024-09-18 10:21 | Outpatient (BNVA) | payer MEDICARE, SELFPAY | PROVIDERS: PCP Physician Assistant; Visit Provider Physician Assistant Surgical | DX: I83.812 Varicose veins of left lower extremity with pain (principal) | CPT/HCPCS: 99202 ==

== ENCOUNTER 2024-10-08 10:30 | Outpatient (REF) | payer MEDICARE, SELFPAY | END 2024-10-08 10:31 | disposition home or self-care (01) | LOC: HO.US 10:30 | PROVIDERS: PCP Physician Assistant; Visit Provider Physician Assistant Surgical | DX: I83.812 Varicose veins of left lower extremity with pain (principal) | CPT/HCPCS: 93970 ==

== ENCOUNTER → 2024-10-08 10:32 | Outpatient (BNV) | payer MEDICARE, SELFPAY | PROVIDERS: PCP Physician Assistant; Visit Provider Radiology Diagnostic Radiology | DX: I83.812 Varicose veins of left lower extremity with pain (principal) | CPT/HCPCS: 93970 ==

== ENCOUNTER 2024-10-20 10:49 | Outpatient (RCR) | payer MEDICARE, SELFPAY | END 2024-12-09 07:47 | disposition home or self-care (01) | LOC: HO.PT 10:49 | PROVIDERS: PCP Physician Assistant; Visit Provider Registered Nurse Emergency | DX: M25.562 Pain in left knee (principal); Z53.09 Procedure and treatment not carried out because of other contraindication ==

== ENCOUNTER → 2024-11-04 08:46 | Outpatient (BNV) | payer MEDICARE, SELFPAY | PROVIDERS: PCP Physician Assistant; Visit Provider Radiology Diagnostic Radiology | DX: M51.26 Other intervertebral disc displacement, lumbar region (principal); M48.061 Spinal stenosis, lumbar region without neurogenic claudication | CPT/HCPCS: 72148 ==

== ENCOUNTER 2024-11-04 09:41 | Outpatient (REF) | payer MEDICARE, SELFPAY ==
--- NOTE | ~2024-11-04 | MR_ITS ---
CLINICAL HISTORY: M54.16 - Radiculopathy, lumbar region MR lumbar spine without gadolinium Comparison: None Findings: Multilevel disc dehydration. Iuqccsht-wg-mvybec disc narrowing noted at several levels. L2 vertebral body hemangioma. Cboj-pv-qjigjssm Modic type 1 changes at L3/L4. No evidence of marrow infiltration. Normal alignment without acute fracture. Conus terminates at T12/L1. Unremarkable appearance of the visualized cord and conus medullaris. L5/S1: Mild disc bulge and bilateral facet hypertrophy associated with mild right lateral recess and bilateral neural foraminal compromise. Up to 5 mm (AP dimension) right anterior zone disc-osteophyte. L4/L5: Up to 3 mm (AP dimension) disc bulge and facet/ligamentum flava hypertrophy associated with severe bilateral lateral recess stenosis and moderate central canal compromise (midsagittal dimension of the thecal sac measures 7 mm). Wqqd-pa-vtpornhk right and mild left neural foraminal stenosis. L3/L4: Left-sided disc herniation (with a superiorly migrating component -to the infrapedicular L3 level- from the left central to left neural foraminal zones) along with facet/ligamentum flava hypertrophy associated with severe bilateral lateral recess, severe central canal (midsagittal dimension of the thecal sac measures 4 mm), as well as severe left and mild right neural foraminal compromise. Small focus/foci of susceptibility artifact in the vicinity of the superior aspect of the herniated disc (posterior to the L3 vertebral body) may be due to vacuum disc phenomena. L2/L3: Disc bulge and facet/ligamentum flava hypertrophy associated with wbcv-nb-zzxwdyrd bilateral lateral recess and central canal compromise , as well as mild bilateral neural foraminal stenosis. T12/L1 and L1/L2: No evidence of significant central canal or neural foraminal stenosis. Bilateral renal cyst/cystic appearing lesions could be further evaluated with ultrasound. A few small uterine fibroids. Colonic diverticulosis. IMPRESSION: L3/L4: Left-sided disc herniation (with a superiorly migrating component -to the infrapedicular L3 level- from the left central to left neural foraminal zones) along with facet/ligamentum flava hypertrophy associated with severe bilateral lateral recess, severe central canal (midsagittal dimension of the thecal sac measures 4 mm), as well as severe left neural foraminal compromise. L4/L5: Up to 3 mm (AP dimension) disc bulge and facet/ligamentum flava hypertrophy associated with severe bilateral lateral recess stenosis and moderate central canal compromise (midsagittal dimension of the thecal sac measures 7 mm). Asan-lm-pqqoxqcn right neural foraminal stenosis. This document has been electronically signed by: Aggie Gutiérrez MD on 11/04/2024 10:58:40
--- OUTSIDE RECORDS SUMMARY | 2024-11-04 10:27 | XMS_ITS | Encounter Summary ---
Author Organization [facility] Address [address] [place] [address] Care Team Providers Care Restaurant Cashier Name Role Phone Wilfrido Matute PA-C Primary Care Provider Encounter Details Date Type Department Care Team (Latest Contact Info) Description 10/22/2024 Travel Social History Tobacco Use Types Packs/Day Years Used Date Smoking Tobacco: Never Smokeless Tobacco: Never Chew Alcohol Use Standard Drinks/Week Comments No 0 (1 standard drink = 0.6 oz pur e alcohol) Social Connections Answer Date Recorded Connectedness 1 09/29/2024 Financial Resource Strain Answer Date R ecorded Financial Resource Strain 1 2023 Stress Answer Date Recorded Stress 1 09/29/2024 Physical Activity Answer Date Recorded Physical Activity 0 06/08/2019 Food Insecurity Answer Date Recorded Food 1 09/29/2024 Transportation Needs Answer Date Record ed Transportation 1 09/29/2024 Housing Stability Answer Date Recorded Housing 1 09/29/2024 Safety and Environment Answer Date Arnie rded Safety 0 06/08/2019 Utilities Answer Date Recorded Utilities 1 09/29/2024 Employment Answer Date Recorded Stress 0 06/25/2024 Comments No Sex and Gender Information Value Date Recorded Sex Assigned at Female 12/26/2017 12:43 PM PDT Legal Sex Female 7:32 AM PST Gender Identity Female 12/26/2017 12:43 PM PDT Sexual Orientation Straight 12/26/2017 12 :43 PM PDT COVID-19 Exposure Response Date Recorded In the last 10 days, have yo u been in contact with someone who was confirmed or suspected to have Coronavirus/COVID-19? No / Unsure 10/22/2024 1:21 PM EST documented as of this encounter Plan of Treatment Upcoming Encounters Date Type Department Care Team (Late st Contact Info) Description 12/24/2024 2:00 PM EDT Office Visit [facility] [address] [place] [address] Gabe Vera PharmD [address] [place] [address] documented as of this encounter Goals Goal Patient Goal Type Associated Problems Recent Progress Patient-Stated? Author Blood Pressure < 140/90 Blood Pressure Essential hypertension 120/70(10/22 2:05 PM EST) No Antoine Conley, Sharron Hypertension: Decrease sodium intake General On track(2022 1:52 PM PDT) No Gabe Vera PharmD HEMOGLOBIN A1C < 7.0 Result Component 8.2(10/22/19 2:57 PM EST) No Antoine Conley PharmD documented as of this encounter Visit Diagnoses Not on filedocumented in this encounter Additional Health Concerns Assessment Noted Time PHQ-9 Depression Total Score: 13 024 8:03 AM PST documented as of this encounter Care Teams Restaurant Cashier Relationship Specialty Start Date End Date Wilfrido Matute PA-C [address] [place] [address] PCP - General 03/23/22 documented as of this encounter
--- OUTSIDE RECORDS SUMMARY | 2024-11-04 10:28 | XMS_ITS | Data Portability ---
Author Organization [facility], [facility] Address [address] [place] [address] Assessment No assessment recorded. Plan of Treatment Reminders Order Date Submit Date Provider Last Modified By Organization Details Last Modified Time Details Appointments None recorded. Lab None recorded. Referral None recorded. Procedures None recorded. Surgeries None recorded. Imaging XR, knee, 4 or more view - 111 R KNEE 4V W/B. SPAN SPEAKING 2023 024 vikas [facility], [address], [place], [address], 4 10:22:06 Medication Orders None recorded. Patient TargetsNo targets recorded. Patient InstructionsNo instructions recorded. Reason for Referral None Reported. Problems Name Problem SNOMED Code Status Onset Date Resolution Date Notes Provider Name and Address Organization Details Recorded Time Pain of right knee joint [id number] Active [address], [facility] 09:27:27 Problem Notes None recorded. Procedures Surgical History Date Name Laterality Status Provider Name and Address Organization Details Recorded Time 01/28/2024 Sports Knee 4&1 completed Yordy Henson PA-C [address], [place], [address], [facility] 01/28/2024 13:30:46 Imaging Results None recorded. Procedure [...] Updated DateTime 01/28/2024 149.86 cm 25.4 kg/m2 60988.64 g ALYSSIA BENJAMIN [place] - [place] [facility] 01/28/2024 09:34:56 Social History None recorded. Functional Status None recorded. Mental Status None recorded. Family History Nothing Reported. Medical History No medical history recorded. Gynecological HistoryNo gynecological history recorded. Obstetrics History GPAL:G 0 P 0 0 0 0 Past Encounters Encounter ID Performer Location Encounter Start Date Encounter Closed Date Diagnosis/Indication Diagnosis SNOMED-CT Code Diagnosis ICD10 Code Diagnosis Note [id number] [facility] [address] [place] [address] 01/28/2024 09:06:54 02/07/2024 10:22:06 Pain of right knee joint 6534696660 13095 M25.561 Osteoarthr itis of right knee joint 3740890147 70073 M17.11 Health Concerns Section Related Observation LastModified by Organization Detai ls LastModified Time None Recorded Concern Status LastModified by Organization Details LastModified Time None Recorded Advance Directives Directive None Recorded Payers Encounter Date Sequence Insurance Name Policy Number Policy Yañez Covered Member ID Yañez Member ID Guarantor Name 01/28/2024 1 [facility] - DOS ON OR AFTER 2023 - ONE CARE (MEDICARE REPLACEMENT/ADV ANTAGE - HMO) Zaida Geiger [id number] Zaida Geiger Notes Date Note Type Note Provider Name and Address Organization Details Recorded Time 01/28/2024 text/html I am seeing the patient today under the supervision of Dr. Martinez who was available but who did not see the patient. HPI:Patient is an 78-year-old female Croatian speaking only who presents to the office today with her for right knee pain. Generator Technician services were used for this visit. Patient [...] us as scheduled. Yordy Henson PA-C [address] [facility] [address], [place], [address], [facility] - [place] [facility] 01/28/2024 13:31:11 OBGyn Episode No OBEpisode recorded.
--- OUTSIDE RECORDS SUMMARY | 2024-11-04 10:28 | XMS_ITS | Clinical Summary ---
Author Organization [employer] [facility] Address [address] [place] [address] Care Team Providers Care Buoy Tender Name Role Phone Unavailable Primary Care Provider Unavailabl e Allergies Active Allergy Reactions Criticality Noted Date Comments Aspirin 12/26/2017 Metformin Unknown 08/11/2020 C/o: GI sx - documented on 08/11/19 Penicillins 12/26/2017 Medications Lantus SoloStar 100 UNIT/ML pen ADMINISTER 26 UNITS UNDER THE SKIN EVERY MORNING 3 Active atorvastatin (Lipitor) 40 MG tablet Take 40 mg by mouth. 3 Active glipiZIDE XL (Glucotrol XL) 5 MG 24 hr tablet Take 5 mg by mouth in the morning. 3 Active Melatonin 3-10 MG tablet Take 1 tablet by mouth if needed at bedtime. 3 Active Jardiance 10 MG TAKE 1 TABLET BY MOUTH EVERY MORNING WITH PLENTY OF FLUIDS THROUGHOUT THE DAY 4 Active lisinopril 20 MG tablet Take 20 mg by mouth in the morning. 3 Active lisinopril 20 MG tablet Take 20 mg by mouth. 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 10/29/2023 Social History Tobacco Use Types Packs/Day Years Used Date Smoking Tobacco: Never Passive Smoke Exposure: Never Smokeless Tobacco: Never Tobacco Cessation:Counseling Given: No Alcohol Use Standard Drinks/Week Comments Never 0 (1 standard drink = 0.6 oz pur e alcohol) Comments Unknown Sex and Gender Information Value Date Recorded Sex Assigned at Female 08/13/2022 10:40 AM EDT Legal Sex Female 10:40 AM EDT Gender Identity Female 08/13/2022 10:40 AM EDT Sexual Orientation Straight 08/13/2022 10 :40 AM EDT Last Filed Vital Signs Vital Sign Reading Time Taken Comments Blood Pressure 118/68 10/29/2023 11:43 AM EST Pulse 67 10/29/2023 11:43 AM EST Temperature - - Respiratory Rate - - Oxygen Saturation - - Inhaled Oxygen Concentration - - Weight - - Height - - Body Mass Index - - Plan of Treatment Health Maintenance Due Date Last Done Comments Dental Oral Exam 1943 Dental Prophylaxis 1943 Dental X-Ray: Bitewings 1943 Depression Screening 1943 Lipid Panel 1943 SDOH Screening 1943 Alcohol/Substance Use Screening 1955 RSV Patients and Patients Aged 60 years or older (1 - 1-dose 75+ series) 2018 Hepatitis B Vaccines (2 of 3 - 19+ 3-dose series) 09/01/2019 08/04/2019 COVID-19 Vaccine (4 - season) 2024 07/17/2022, 03/09/2022, 01/31/2021 Influenza Vaccine (#1) 2024 , 08/16/2022, 08/01/2020, Additional history exists Tobacco Screening 11/21/2024 11/21/2023 Dental X-Ray: Full Mouth 11/22/2026 11/21/2023 DTaP/Tdap/Td Vaccines (4 - Td or Tdap) 12/12/2032 12/12/2022, 03/07/2022, 12/17/2017 Pneumococcal Vaccine: 65+ Years Completed 05/17/2022, 08/04/2019, 10/16/2017 Zoster Vaccines Completed 08/16/2022, 06/08/2022 HIB Vaccines Aged Out No longer eligi ble based on patient's age to complete this topic HPV Vaccines Aged Out No longer eligi ble based on patient's age to complete this topic Hepatitis A Vaccines Aged Out No long er eligible based on patient's age to complete this topic IPV Vaccines Aged Out No longer eligi ble based on patient's age to complete this topic Meningococcal Vaccine Aged Out No denzel kasey eligible based on patient's age to complete this topic RSV under 20 months Aged Out No longe r eligible based on patient's age to complete this topic Rotavirus Vaccines Aged Out No longer eligible based on patient's age to complete this topic Procedures Procedure Name Priority Date/Time Associated Diagnosis Comments PANORAMIC RADIOGRAPHIC IMAGE Routine 11/21/2023 9:30 AM EST from Last 3 Months or Most Recently Relevant to Health Maintenance Insurance [facility]
== END 2024-11-04 09:42 | disposition home or self-care (01) ==
LOC: HO.MRI 09:41
PROVIDERS: PCP Physician Assistant; Visit Provider Physical Medicine & Rehabilitation
DX: M54.16 Radiculopathy, lumbar region (principal); M79.652 Pain in left thigh
CPT/HCPCS: 72148

== ENCOUNTER 2024-11-06 10:56 | Emergency (ER) | payer OTHER, SELFPAY ==
--- NOTE | ~2024-11-06 | XR_ITS ---
EXAMINATION: XR HIP, RIGHT CLINICAL INFORMATION: pain 1 week COMPARISON: Left hip radiographs 07/28/2024. TECHNIQUE: AP pelvis, and 2 views of the right hip. FINDINGS: Normal bone mineralization. No definite fracture, dislocation, or suspicious bone lesion. Mild osteophytic changes of both hip joints symmetrically. There are gluteal enthesophytes involving the greater trochanters and iliac wings. There are arthritic changes in the lower lumbar spine. The sacrum is intact. The SI joints appear normal. Soft tissues demonstrate vascular calcifications. XR/XR hip RT w PEL 1V IMPRESSION: No fracture or acute bony abnormalities. No significant change from 07/28/2024. Electronically signed by: Malcom Valle MD 11/06/2024 01:06 PM [facility]
[2024-11-06 11:07] VITALS: BP 128/50; PULSE 88; O2SAT 96
--- NOTE | 2024-11-06 12:40 | ED.GENADULT ---
HPI - General Adult General Chief complaint: General Medical Stated complaint: RECTAL BLEEDING Time Seen by Provider: 11/06/24 16:57 Related Data Previous Rx's ?Medication ?Instructions ?Recorded acetaminophen 500 mg tablet 500 mg PO Q6H PRN fever or pain 06/17/22 (Tylenol Extra Strength) #14 tabs cyclobenzaprine 5 mg tablet 5 mg PO Q8H PRN pain (scale score 06/17/22 7-10) 5 days #14 tabs lidocaine 5 % topical patch 1 patch topical DAILY PRN pain #30 06/17/22 (Lidoderm) ea cefuroxime axetil 250 mg tablet 250 mg PO BID 7 days #14 tabs 07/28/24 diclofenac sodium 1 % topical gel 4 g topical QID PRN pain #100 grams 09/03/24 (Arthritis Pain (diclofenac)) sulfamethoxazole 800 1 tab PO BID #10 tabs 11/09/24 mg-trimethoprim 160 mg tablet Allergies Allergy/AdvReac Type Severity Reaction Status Date / Time Penicillins Allergy Unknown Unknown Verified 11/06/24 12:42 aspirin [ASA] Allergy Unknown Verified 11/06/24 12:42 [facility] Past Medical History Medical History Dementia Diabetes HTN (hypertension) Social History Social History Alcohol intake: never Patient Tobacco Use Status: Never used Tobacco Advance Directives: No Advance Directives Information Provided: No Current occupational status: disabled Physical Exam ED Vital Signs: BMI result Body Mass Index 25.5 Course Course Course Narrative: This is a rapid medical exam performed by Javier Bernal NP: Additional HPI, ROS, PE not included below will be deferred to primary provider. Patient is an 79-year-old Arabic speaking female with history of DM, HTN, dementia presenting with complaint of rectal bleeding. States when she went to the bathroom this morning she noted red blood in the toilet. Patient thinks she has a small hemorrohoid. Also complaining of right leg pain x 1 week. reports history of arthritis. When asked to specify, patient points to right hip. Plan: labs, UA Reevaluation(s) Reevaluation #1: Patient noted to have left waiting room without completing treatment. Urine culture positive for E. coli susceptible to bactrim. Prescription sent to pharmacy. Attempted to reach patient via telephone at both numbers listed in chart. No answer, unable to leave voicemail. Time: 07:38 Medical Decision Making Lab Data 11/06/24 13:22 11/06/24 13:22 Labs: Lab Results 11/06/24 Range/Units 13:22 WBC 9.3 (4.8-10.8) X10*3/uL RBC 5.60 H (4.20-5.50) X10*6/uL Hgb 15.7 (12.0-16.0) g/dl Hct 46.8 (37.0-47.0) % MCV 83.6 (80.0-98.0) fL MCH 28.0 (27.0-33.0) pg MCHC 33.5 (31.0-35.0) g/dl RDW 13.2 (11.0-16.0) % Plt Count 136 L (160-400) X10*3/uL MPV 12.6 H (9.4-12.3) fL Immature Gran % (Auto) 0.6 H (0.0-0.4) % Neut % (Auto) 68.2 (45-73) % Lymph % (Auto) 22.3 (20-40) % Piatt % (Auto) 7.0 (2-11) % Eos % (Auto) 1.5 (0-4) % Baso % (Auto) 0.4 (0-2) % Lymph # (Auto) 2.1 (1.2-4.9) X10*3/uL Piatt # (Auto) 0.7 (0.1-1.2) X10*3/uL Eos # (Auto) 0.1 (0.0-0.4) X10*3/uL Baso # (Auto) 0.0 (0.0-0.2) X10*3/uL Abs Immat Gran (auto) 0.06 H (0.00-0.03) X10*3/uL Absolute Neuts (auto) 6.3 (2.0-8.3) x10*3/uL Absolute Nucleated RBC 0.000 (0.0-0.012) X10*3/uL Nucleated RBC % (auto) 0.0 (0.0-0.2) /100WBC Smear Tech's Comments VERIFIED PT 11.5 (10.9-12.4) SEC INR 1.0 (0.9-1.1) Sodium 141 (135-145) mmol/L Potassium 3.8 (3.3-5.1) mmol/L Chloride 108 (96-108) mmol/L Carbon Dioxide 23 (22-29) mmol/L Anion Gap 14 (12-20) BUN 13 (9-16) mg/dL Creatinine 0.80 (0.5-1.4) mg/dL Estim Creat Clear Calc 42.4 Estimated GFR > 60 Random Glucose 195 H (60-115) mg/dL Calcium 9.3 (8.4-10.2) mg/dL Total Bilirubin 0.8 (0.0-1.0) mg/dL AST 33 H (5-31) U/L ALT 20 (0-31) U/L Alkaline Phosphatase 72 (39-117) U/L Total Protein 8.2 H (6.5-8.0) g/dL Albumin 4.5 (3.5-5.0) g/dL Urine Color Yellow Urine Appearance Cloudy Urine pH 5.5 (5.0-9.0) Ur Specific [place] >= 1.030 H (1.005-1.025) Urine Protein Negative (Neg-Trace) mg/dL Urine Glucose (UA) >=1000 H (Negative) mg/dL Urine Ketones Negative (Negative) mg/dL Urine Blood Large (3+) H (Negative) Urine Nitrite Negative (Negative) Ur Leukocyte Esterase Negative (Negative) Urine RBC 0-2 (0-2) /HPF Urine WBC 11-20 H (0-5) /HPF Ur Squamous Epith Cells 0-2 (0-2) /HPF Urine Bacteria 4+ (None Seen) Hyaline Casts 0-2 (0-2) /LPF Discharge Plan Discharge Clinical Impression: UTI (urinary tract infection) Patient Disposition: Left W/O Completing Treatment Prescriptions: New sulfamethoxazole-trimethoprim 800-160 mg tablet 1 tab PO BID Qty: 10 0RF No Action acetaminophen [Tylenol Extra Strength] 500 mg tablet 500 mg PO Q6H PRN (Reason: fever or pain) Qty: 14 0RF lidocaine [Lidoderm] 5 % adhesive patch,medicated 1 patch topical DAILY MDD remove after 12 hours PRN (Reason: pain) Qty: 30 0RF Rx Instructions: leave on most painful area for up to 12 hrs cyclobenzaprine 5 mg tablet 5 mg PO Q8H PRN (Reason: pain (scale score 7-10)) 5 Days Qty: 14 0RF cefuroxime axetil 250 mg tablet 250 mg PO BID 7 Days Qty: 14 0RF diclofenac sodium [Arthritis Pain (diclofenac)] 1 % gel 4 g topical QID PRN (Reason: pain) Qty: 100 0RF Rx Instructions: apply to single knee Discharge Date/Time: 11/06/24 17:57
[2024-11-06 12:41] VITALS: BP 142/60; PULSE 85; RESP 16; TEMP 36.7; O2SAT 96; BMI 25.5
[2024-11-06 13:35] LABS: Basophils Percent Auto 0.4 % (0-2); Eosinophils Absolute Auto 0.1 X10*3/uL (0.0-0.4); Eosinophils Percent Auto 1.5 % (0-4); Hematocrit 46.8 % (37.0-47.0); Hemoglobin 15.7 g/dl (12.0-16.0); Imm Gran Abs Auto 0.06 X10*3/uL (0.00-0.03); Imm Gran Pct Auto 0.6 % (0.0-0.4); Lymphocytes Absolute Auto 2.1 X10*3/uL (1.2-4.9); Lymphocytes Percent Auto 22.3 % (20-40); MANUAL DIFF FLAG SCAN; Mean Corpuscular HGB Conc 33.5 g/dl (31.0-35.0); Mean Corpuscular Volume 83.6 fL (80.0-98.0); Monocytes Absolute Auto 0.7 X10*3/uL (0.1-1.2); Neutrophils Absolute Auto 6.3 x10*3/uL (2.0-8.3); Neutrophils Percent Auto 68.2 % (45-73); PLT CLUMP 1; Red Cell Distribution Width 13.2 % (11.0-16.0); SCAN SMEAR FLAG 1
[2024-11-06 13:36] LABS: Appearance Urine Cloudy; Color Urine Yellow; Glucose Urine UA >=1000 mg/dL (Negative); Leukocyte Esterase Urine Negative (Negative); Nitrite Urine Negative (Negative); PH 5.5 (5.0-9.0); Specific Gravity - Urine >= 1.030 (1.005-1.025); UMIC TRIGGER UACC YES; Urine Blood Large (3+) (Negative); Urine Ketones Negative (Negative); Urine Protein Negative (Neg-Trace)
[2024-11-06 13:39] LABS: Prothrombin Time 11.5 SEC (10.9-12.4)
[2024-11-06 13:47] LABS: Bacteria Urine 4+ (None Seen); Hyaline Casts Urine 0-2 /LPF (0-2); RBC Urine 0-2 /HPF (0-2); Squamous Epithelial Cell Urine 0-2 /HPF (0-2); UACC Culture Trigger YES
[2024-11-06 13:54] LABS: Mean Platelet Volume 12.6 fL (9.4-12.3); Platelet Count 136 X10*3/uL (160-400); SLIDE REVIEW VERIFIED; White Blood Count 9.3 X10*3/uL (4.8-10.8)
[2024-11-06 14:00] LABS: Alanine Aminotransferase 20 U/L (0-31); Albumin Level 4.5 g/dL (3.5-5.0); Anion Gap 14 (12-20); Aspartate Amino Transferase 33 U/L (5-31); Bilirubin Total 0.8 mg/dL (0.0-1.0); Blood Urea Nitrogen 13 mg/dL (9-16); Calcium 9.3 mg/dL (8.4-10.2); Carbon Dioxide 23 mmol/L (22-29); Chloride 108 mmol/L (96-108); Creatinine Clr Calc Pharmacy 42.4; Estimated Glomerular Filt Rate > 60; Glucose Random 195 mg/dL (60-115); Potassium 3.8 mmol/L (3.3-5.1); Sodium 141 mmol/L (135-145); Total Protein 8.2 g/dL (6.5-8.0)
[2024-11-06 14:10] LABS: Alkaline Phosphatase 72 U/L (39-117)
--- OUTSIDE RECORDS SUMMARY | 2024-11-06 16:55 | XMS_ITS | Encounter Summary ---
Author Organization [facility] Address [address] [place] [address] Care Team Providers Care Forge Operator Helper Name Role Phone Wilfrido Matute PA-C Primary Care Provider Reason for Visit * Reason Comments Diabetes Mellitus 79yr old female DM f /u Encounter Details Date Type Department Care Team (Latest Contact Info) Description 10/22/2024 2:00 PM EST Office Visit [facility] [address] [place] [address] Gabe Vera, PharmD [address] [place] [address] Uncontrolled type 2 diabetes mellitus with hyperglycemia (HCC-CMS) (Primary Dx); Essential hypertension Social History Tobacco Use Types Packs/Day Years [...] PM EST documented as of this encounter Last Filed Vital Signs Vital Sign Reading Time Taken Comments Blood Pressure 120/70 10/22/2024 2:05 PM EST Pulse 93 10/22/2024 2:05 PM EST Temperature 37.1 ??C (98.7 ??F) 10/22/2024 2:05 PM ES T Respiratory Rate 18 10/22/2024 2:05 PM EST Oxygen Saturation 97% 10/22/2024 2:05 PM EST Inhaled Oxygen Concentration - - Weight 58.1 kg (128 lb) 10/22/2024 2:05 PM EST Height 144.8 cm (4' 9 ) 10/22/2024 2:05 PM EST Body Mass Index 27.7 10/22/2024 2:05 PM EST documented in this encounter Progress Notes * Gabe Iqbal PharmD - 10/22/2024 2:09 PM EST Zaida Geiger is a 79 year old, [place]aguayan-speaking female who presents today for a follow-up visit in [facility] with Gabe Tellez PharmD. Referred by Wilfrido Matute PA-C. No roof bolter needed for today's visit as provider speaks patient's familiar language. Accompanied by: partner Subjective: Patient reports: Patient not monitoring BG at home. Partner states that patient hides glucometer. Endorses adherence to medications. Polydipsia/polyphagia/polyuria? yes - polyuria in setting of increased water intake Changes in diet: reports not following carb controlled diet, I eat everything I want Changes in physical activity: denies recent changes, walking daily. New concerns: No concerns Tobacco Use: Never Smoker Alcohol Use: No alcohol use Additional OTC medications or supplements: none Specialists managing DM/HTN: None Diabetes Current Diabetes RX: Glipizide ER 5 mg 1 tab QAM Jardiance 25 mg daily Lantus 26 units QAM HTN Current HTN RX: amlodipine 10 mg daily Patient reports checking blood pressure at home as needed for symptoms of elevated BP Objective: BGM Metrics: Not available, patient forgot glucometer/reader at home Allergies reviewed: Allergies Allergen Reactions Aspirin Metformin Other (See Comments) C/o: GI sx - documented on 08/11/19 Penicillins BP 120/70 (Right Arm, Sitting, Regular Adult) Pulse 93 Temp 98.7 ??F (37.1 ??C) Resp 18 Ht 4' 9 (1.448 m) Wt 128 lb (58.1 kg) SpO2 97% BMI 27.70 kg/m?? OB Status Postmenopausal Smoking Status Never BSA 1.53 m?? Estimated Creatinine Clearance: 40 mL/min (by C-G formula based on SCr of 0.88 mg/dL). Last 3 BP Readings: Date: BP: 10/22/2024 120/70 08/26/2024 126/78 07/29/2024 138/72 Wt Readings from Last 3 Encounters: 10/22/24 128 lb (58.1 kg) 09/29/24 125 lb (56.7 kg) 08/26/24 125 lb (56.7 kg) Lab Results Component Value Date HGBA1C 7.5 (H) 07/23/2024 HGBA1C 7.7 (H) 04/23/2024 HGBA1C 7.9 (H) 12/19/2023 Lab Results Component Value Date GLUCOSE 275 (A) 10/22/2024 EAG 240 12/07/2020 Lab Results Component Value Date MICRALBCREAT 93.4 (H) 12/07/2020 URALBCREAT 60 (H) 12/19/2023 Lab Results Component Value Date NA 139 07/29/2024 K 4.0 07/29/2024 BUN 17 07/29/2024 BUNCREAT SEE NOTE: 07/29/2024 CREATININE 0.88 07/29/2024 EGFR 66 07/29/2024 Lab Results Component Value Date TSH 1.16 12/27/2017 Lab Results Component Value Date TRIGLYC 417 (H) 12/19/2023 CHOL 239 (H) 12/19/2023 HDL 39 (L) 12/19/2023 LDL See Note 12/19/2023 CHOLHDL 6.1 (H) 12/19/2023 NONHDL 200 (H) 12/19/2023 The ASCVD Risk score (Maddie CHRISTIAN, et al., 2019) failed to calculate for the following reasons: The 2019 ASCVD risk score is only valid for ages 40 to 79 Assessment: Diabetes: Need updated A1c, Lack of SMBG HTN: controlled ASCVD: Age >75 yo, DM, prescribed statin, reasonable to continue current statin Plan: E11.65 Uncontrolled type 2 diabetes mellitus with hyperglycemia ([facility]) (primary encounter diagnosis) Plan : GLUCOSE, BLOOD BY GLUCOSE MONITORING DEVICE (CLIA WAIVED)POCT HGBA1C W/MPG PHARMACOTHERAPY for diabetes Updated A1c ordered, will review results and reassess therapy. Continue current regimen for now: glipizide ER 5 mg 1 tab QAM, Jardiance 25 mg daily, and Lantus 26 units QAM Counseled patient on the following diet and lifestyle modifications (weight loss, decrease carbohydrates such as rice, bread, pasta and corn meal, increase non-starchy vegetables, no potatoes or corn, and increase physical activity with at least 150 minutes of moderate physical activity per week) I10 Essential hypertension PHARMACOTHERAPY for HTN BP controlled, continue amlodipine 10 mg daily ASCVD: Per 2023 ADA guidelines for lipid management, continue high-intensity statin: atorvastatin 40 mg daily Referral: None Follow-Up: 2 months Patient agrees with plan of care and verbalizes understanding. Questions were answered. Education: Labs due (A1c) - will review results and determine best therapy Medication Regimen: (indication, dosage, administration, storage, ADR, missing dose) BG testing and target/Alternate Site Testing Focus on consuming carbohydrates from high-fiber sources like whole grains, legumes, and fruits in controlled portions to help manage blood sugar levels, and aim to fill half your plate with non-starchy vegetables like leafy greens, broccoli, or peppers for added nutrients and fiber. Avoid sugary beverages like soda and limit sweets to special occasions, choosing healthier alternatives such as water, unsweetened tea, or low-calorie drinks to minimize blood sugar spikes Incorporate at least 150 minutes of moderate physical activity per week, such as brisk walking or cycling, to improve insulin sensitivity, enhance glucose control, and support overall cardiovascular health. Sign / Symptoms of Hyperglycemia / Hypoglycemia Hypoglycemia Treatment (Rule 15) Fundraising Consultant Complications Uncontrolled Diabetes Gabe Tellez PharmD documented in this encounter Miscellaneous Notes * Result Encounter Note - Gabe Iqbal PharmD - 10/28/2024 1:58 PM EST A1c increased from 7.5% to 8.2%, slightly above goal of <8%. During recent encounter patient reported not following lifestyle modifications. Will continue current regimen for now. Patient was advised to follow healthy diet and exercise during recent encounter. Please reiterate importance of dietand adherence to medications. Pharmacotherapy for diabetes: - glipizide ER 5 mg 1 tab QAM - Jardiance 25 mg daily - Lantus 26 units QAM Please inform patient, thanks!!! * Patient Instructions - Gabe Iqbal PharmD - 10/22/2024 2:20 PM EST If you are not able to keep your appointment please call 24-48 hours before your appointment to cancel or reschedule. Gabe Tellez PharmD, [facility] [place]/Clinical Pharmacist ext. [phone] documented in this encounter Plan of Treatment Upcoming Encounters Date Type Department Care Team (Late st Contact Info) Description 12/24/2024 2:00 PM EDT Office Visit [facility] [address] [place] [phone] Gabe Vera PharmD [address] [place] [address] documented as of this encounter Goals Goal Patient Goal Type Associated Problems Recent Progress Patient-Stated? Author Blood Pressure < 140/90 Blood Pressure Essential hypertension 120/70(10/22 2:05 PM EST) No Antoine Conley, Sharron Hypertension: Decrease sodium intake General On track(2022 1:52 PM PDT) No Gabe Vera, Sharron HEMOGLOBIN A1C < 7.0 Result Component 8.2(10/22/19 2:57 PM EST) No Antoine Conley, Sharron documented as of this encounter Procedures Procedure Name Priority Date/Time Associated Diagnosis Comments HGBA1C W/MPG Routine 10/22/2024 2:57 PM EST Uncontrolled type 2 diabetes mellitus with hyperglycemia ([facility]) GLUCOSE, BLOOD BY GLUCOSE MONITORING DEVICE (CLIA WAIVED)POCT Routine 10/22/2024 2:10 PM EST Uncontrolled type 2 diabetes mellitus with hyperglycemia ([facility]) documented in this encounter Results * (ABNORMAL) HGBA1C W/MPG (10/22/2024 2:57 PM EST) HEMOGLOBIN A1C 8.2(H) <5.7 % of total Hgb [employer] Comment: For someone without known diabetes, a hemoglobin A1c value of 6.5% or greater indicates that they may have diabetes and this should be confirmed with a follow-up test. For someone with known diabetes, a value <7% indicates that their diabetes is well controlled and a value greater than or equal to 7% indicates suboptimal control. A1c targets should be individualized based on duration of diabetes, age, comorbid conditions, and other considerations. Currently, no consensus exists regarding use of hemoglobin A1c for diagnosis of diabetes for children. ?? MEAN PLASMA GLUCOSE 215 mg/dL (calc) [employer] Blood Blood / Unknown 10/22/2024 2 :57 PM EST 10/22/2024 2:59 PM EST Narrative [facility] - 10/23/2024 9:13 AM EST FASTING:YES Gabe Iqbal PharmD LAB - BLOOD D RAW Final Result [facility] [address] [address], [employer] [facility] [address] [place] [address] * (ABNORMAL) GLUCOSE, BLOOD BY GLUCOSE MONITORING DEVICE (CLIA WAIVED)POCT (10/22/2024 2:10 PM EST) GLUCOSE 275(A) 70 - 100 mg/dL [facility] POCT Capillary Blood Blood / Unknown 2:10 PM EST Gabe Iqbal PharmD LAB - BLOOD D RAW Final Result [facility] POCT documented in this encounter Visit Diagnoses Diagnosis Uncontrolled type 2 diabetes mellitus with hyperglycemia ([facility])- Primary Essential hypertension documented in this encounter Additional Health Concerns Assessment Noted Time PHQ-9 Depression Total Score: 13 09/29/ 024 8:03 AM PST documented as of this encounter Care Teams Forge Operator Helper Relationship Specialty Start Date End Date Wilfrido Matute PA-C [address] [place] [address] PCP - General 03/23/22 documented as of this encounter
--- OUTSIDE RECORDS SUMMARY | 2024-11-06 16:55 | XMS_ITS | Data Portability ---
Author Organization [facility], [facility] Address [address] [place] [address] Assessment No assessment recorded. Plan of Treatment Reminders Order Date Submit Date Provider Last Modified By Organization Details Last Modified Time Details Appointments None recorded. Lab None recorded. Referral None recorded. Procedures None recorded. Surgeries None recorded. Imaging XR, knee, 4 or more view - 111 R KNEE 4V W/B. SPAN SPEAKING 2023 024 vikas [facility], [address], [place], [address], 4 10:22:06 Medication Orders None recorded. Patient TargetsNo targets recorded. Patient InstructionsNo instructions recorded. Reason for Referral None Reported. Problems Name Problem SNOMED Code Status Onset Date Resolution Date Notes Provider Name and Address Organization Details Recorded Time Pain of right knee joint [id number] Active [address], [facility] 09:27:27 Problem Notes None recorded. Procedures Surgical History Date Name Laterality Status Provider Name and Address Organization Details Recorded Time 01/28/2024 Sports Knee 4&1 completed Yordy Henson PA-C [address], [place], [address], [facility] 01/28/2024 13:30:46 Imaging Results None [...] Updated DateTime 01/28/2024 149.86 cm 25.4 kg/m2 10294.64 g ALYSSIA BENJAMIN [place] [facility] 01/28/2024 09:34:56 Social History None recorded. Functional Status None recorded. Mental Status None recorded. Family History Nothing Reported. Medical History No medical history recorded. Gynecological HistoryNo gynecological history recorded. Obstetrics History GPAL:G 0 P 0 0 0 0 Past Encounters Encounter ID Performer Location Encounter Start Date Encounter Closed Date Diagnosis/Indication Diagnosis SNOMED-CT Code Diagnosis ICD10 Code Diagnosis Note [id number] [facility] [address] [place] [address] 01/28/2024 09:06:54 02/07/2024 10:22:06 Pain of right knee joint 9089533845 76496 M25.561 Osteoarthr itis of right knee joint 3249424515 81060 M17.11 Health Concerns Section Related Observation LastModified by Organization Detai ls LastModified Time None Recorded Concern Status LastModified by Organization Details LastModified Time None Recorded Advance Directives Directive None Recorded Payers Encounter Date Sequence Insurance Name Policy Number Policy Yañez Covered Member ID Yañez Member ID Guarantor Name 01/28/2024 1 [facility] - DOS ON OR AFTER 2023 - ONE CARE (MEDICARE REPLACEMENT/ADV ANTAGE - HMO) Zaida Geiger [id number] Zaida Geiger Notes Date Note Type Note Provider Name and Address Organization Details Recorded Time 01/28/2024 text/html I am seeing the patient today under the supervision of Dr. Martinez who was available but who did not see the patient. HPI:Patient is an 78-year-old female Romansh speaking only who presents to the office today with her for right knee pain. [employer] services were used for this visit. Patient [...] us as scheduled. Yordy Henson PA-C [address] [facility] [address], [place], [address], [facility] - [facility] 01/28/2024 13:31:11 OBGyn Episode No OBEpisode recorded.
--- OUTSIDE RECORDS SUMMARY | 2024-11-06 16:55 | XMS_ITS | Encounter Summary ---
Author Organization [facility] Address [address] [place] [address] Care Team Providers Care Consulting Psychiatrist Name Role Phone Wilfrido Matute PA-C Primary Care Provider [phone] Encounter Details Date Type Department Care Team [...] Description 12/24/2024 2:00 PM EDT Office Visit [facility] [address] [place] [address] Gabe Vera PharmD [address] [place] [address] documented as of this encounter Goals Goal [...] documented as of this encounter Care Teams Consulting Psychiatrist Relationship Specialty Start Date End Date Wilfrido Matute PA-C [address] [place] [address] PCP - General 03/23/22 documented as of this encounter
--- OUTSIDE RECORDS SUMMARY | 2024-11-06 16:55 | XMS_ITS | Clinical Summary ---
Author Organization [employer] [facility] Address [address] [place] [address] Care Team Providers Care Cellulose Insulation Helper Name Role Phone Unavailable Primary Care Provider [...] Most Recently Relevant to Health Maintenance Insurance [facility]
== END 2024-11-06 17:57 | disposition left against medical advice (07) ==
PROVIDERS: Registered Nurse Emergency; Emergency Provider Emergency Medicine
DX: N39.0 Urinary tract infection, site not specified (principal); M25.551 Pain in right hip; K62.5 Hemorrhage of anus and rectum; Z79.899 Other long term (current) drug therapy
CPT/HCPCS: 36415; 73502; 80053; 81001; 85025; 85610; 87086; 87088; 87186; 99282; 99283

== ENCOUNTER → 2024-11-06 12:48 | Outpatient (BNV) | payer MEDICARE, SELFPAY | PROVIDERS: Visit Provider Radiology Diagnostic Radiology | DX: M25.551 Pain in right hip (principal) | CPT/HCPCS: 73502 ==

== ENCOUNTER 2024-11-26 09:42 | Outpatient (AMB) | payer OTHER, SELFPAY ==
--- NOTE | 2024-11-26 09:44 | A.OFFVIS_ITS ---
Intake Visit Reasons: follow up s/p US 10/08/25 Intake Note: Patient presents for follow up US performed on 10/08/24. Patient states she has pain running down her right leg when she walks. Accompanied by: Spouse Allergies Penicillins Allergy (Unknown, Verified 11/26/24 09:46) Unknown aspirin [ASA] Allergy (Verified 11/26/24 09:46) Unknown HPI HPI follow up s/p US 10/08/25: Details: Very pleasant 79-year-old female presents for follow-up regarding lower extremity pain. Upon further discussion with her it actually appears that it is more so the hip and thighs that have been a source of discomfort for her. She does have some mild swelling. She is accompanied by her . We do have an online paraprofessional interpreter. She now presents for follow-up with venous insufficiency testing [facility] Medical History Dementia Diabetes HTN (hypertension) Social History Alcohol intake: never Patient Tobacco Use Status: Never used Tobacco Current occupational status: disabled Review of Systems Const All systems reviewed & are unremarkable except as noted in HPI and below Reports no additional complaints ENT Reports Normal hearing present Card Denies chest pain, Denies chest pain at rest, Denies chest pain with activity and Denies pedal edema Resp Denies cough GI Denies abdominal pain Musc Denies abnormal gait, Denies muscle cramps and Denies radiating pain into limb Skin/Breast Denies skin ulcer and Denies wounds Neuro Reports Normal hearing present and Denies abnormal gait Psych Reports no additional complaints Physical Exam Const General: cooperative, healthy appearing and comfortable Orientation/consciousness: oriented to person, oriented to place and oriented to time HEENT Head: Yes normal to inspection Neck Neck: Yes normal visual inspection Carotids: no bruits Chest Chest palpation & inspection: normal inspection of the chest Resp Effort & Inspection: normal respiratory effort and able to speak in complete sentences Auscultation: clear to auscultation bilaterally, no crackles, no rales, no rhonchi and no wheezes Cardio Rate: regular rate Rhythm: regular rhythm Heart sounds: S1 normal heart sound present and S2 normal heart sound present Bruits: no carotid bruits Peripheral pulses: Peripheral pulses 2+ throughout GI Inspection: Yes normal to inspection Skin Wounds: no wounds Hair: normal Neuro General: oriented to person, oriented to place and oriented to time Cranial nerves: Yes CN's II-XII intact bilaterally and Yes Normal hearing present Cognition (Neuro): normal cognition Motor exam (neuro): 5/5 motor strength present throughout Extrem Other: venous exam: +1 edema General: No clubbing, No cyanosis and Yes edema Psych Appearance: grossly normal Mental Status: mental status grossly normal Speech and movement: Normal speech and movement present Results Reviewed Results Reviewed: Brief summary of venous insufficiency testing is as follows: right great saphenous vein: negative right small saphenous vein: negative right accessory vein: none present left great saphenous vein: negative left small saphenous vein: negative left accessory vein: none present Please note there is no evidence of any venous aneurysms or significant tortuosity Assessment & Plan Assessment & Plan (1) Varicose veins of left lower extremity with pain: Code(s): I83.812 - Varicose veins of left lower extremity with pain Category: Medical Plan: In short patient is negative for any significant venous insufficiency. We did discuss routine conservative measures including compression elevation and exercise. She will follow up with us on an as-needed basis. Thank you for allowing us to assist in her care. If there are any questions or concerns please do not hesitate to contact us. Coding Level of Care Code Est Pt Level 4 (50443) Diagnoses Varicose veins of left lower extremity with pain I83.812
--- OUTSIDE RECORDS SUMMARY | 2024-11-26 10:14 | XMS_ITS | Clinical Summary ---
Author Organization [facility] Address [address] [place] [address] Care Team Providers Care Handbag Operator Name Role Phone Wilfrido Matute PA-C Primary Care Provider Source Comments PLEASE NOTE, if this patient is a minor, it may be UNLAWFUL to discuss sensitive information that is contained in these records (such as FAMILY PLANNING, MENTAL HEALTH or SUBSTANCE ABUSE) with the minor patient's parent or other person without the patient's specific authorization.[facility] Allergies Active Allergy Reactions Criticality Noted Date Comments Aspirin 12/26/2017 Metformin Other (See Comments) 08/11/2020 C/o: GI sx - documented on 08/11/19 Penicillins 12/26/2017 Medications miscellaneous medical supply miscIndications:Ga it instability by miscellaneous route once daily Supply: Walker with seat Dx: gait instability Length of need: Lifetime 1 Each 04/28/20 21 Active lidocaine (LIDODERM) 5 % patchIndications:S ciatica of right side,Pain of both hip joints Place 1 Patch onto the skin once daily (every 24 hours) 30 Patch 06/08/20 22 Active diclofenac sodium (VOLTAREN) 1 % gel 06/17/2022 DICLOFENAC 1% GEL 100GM 100.00 g 0 7 APPLY TOPICALLY TWICE DAILY NEEDED Authorized by: LUDMILA MORA 06/17/20 22 Active alcohol swabsIndications:U ncontrolled type 2 diabetes mellitus with hyperglycemia ([facility]) Use to clean skin up to 2x/d PRN DXE11.59 100 Each 11 08/08/20 22 Active miscellaneous medical supply miscIndications:At risk for falling,Gait instability by miscellaneous route once daily Dx: at risk for fall, gait instability, LEWIS: 99, Supply: cane. Patient is 4' 11 1 Each 09/03/20 22 Active miscellaneous medical supply miscIndications:Ga it instability by miscellaneous route once daily Supply: Shower handle Dx: Gait instability Length of need: lifetime 1 Each 09/03/20 22 Active blood pressure test kit-largeIndicatio ns:Essential hypertension Use once daily to check BP. [employer] 1 Kit 01/01/20 23 Active clotrimazole (LOTRIMIN) 1 % creamIndications:I ntertrigo Apply topically 2 (two) times daily 45 g 1 01/17/20 23 Active calcium-vitamin D3-vitamin K 500 mg-1,000 unit-40 mcg chewIndications:Po stmenopausal Chew and swallow 1 Tablet by mouth once daily 90 Tablet 1 12/19/19 24 Active blood sugar diagnostic (ONETOUCH VERIO TEST STRIPS) stripsIndications: Uncontrolled type 2 diabetes mellitus with hyperglycemia (HCC-CMS) Use to test BG 1x/d UD DXE11.59 OneTouch Verio Test Strips 100 Each 01/30/20 24 Active lancets (ONETOUCH DELICA PLUS LANCET) 30 gaugeIndications:U ncontrolled type 2 diabetes mellitus with hyperglycemia (HCC-CMS) Use to test BG 1x/d UD [id number] One Touch Delica Plus Lancet 30G 100 Each 11 01/30/20 24 Active blood-glucose meter (ONETOUCH VERIO REFLECT METER) monitoring kitIndications:Unc ontrolled type 2 diabetes mellitus with hyperglycemia (HCC-CMS) Use to test BG 1x/d UD DXE11.65 OneTouch Verio Reflect Meter 1 Each 02/27/20 24 Active MISCELLANEOUS MEDICAL SUPPLY MISCIndications:Ri ght leg pain,Gait instability,Pain of both hip joints by miscellaneous route daily Dx: right leg pain, pain in both hip[ joints, gait instability. LEWIS: 99, Supply: 4 wheel mobility scooter for adults with basket 1 Each 05/28/20 24 Active JARDIANCE 25 mg tabIndications:Unc ontrolled type 2 diabetes mellitus with hyperglycemia (HCC-CMS) TAKE 1 TABLET BY MOUTH DAILY 90 Tablet 1 07/03/20 24 Active pen needle, diabetic (BD ULTRA-FINE RUBEN PEN NEEDLE) 32 gauge x ndleIndications:Un controlled type 2 diabetes mellitus with hyperglycemia ([facility]) Use to inject insulin 1x/d UD DXE11.59 100 Each 11 07/23/20 24 Active hydrOXYzine HCL (ATARAX) 25 mg tabletIndications: Psychophysiologica l insomnia Take 1 Tablet by mouth nightly at bedtime as needed for anxiety or sleep 30 Tablet 1 08/26/20 24 Active amLODIPine (NORVASC) 10 mg tabletIndications: Essential hypertension Take 1 Tablet by mouth once daily 90 Tablet 1 09/29/20 24 Active atorvastatin (LIPITOR) 40 mg tabletIndications: Mixed hyperlipidemia Take 1 Tablet by mouth once daily 90 Tablet 1 09/29/20 24 Active gabapentin (NEURONTIN) 100 mg capsuleIndications :Moderate episode of recurrent major depressive disorder ([facility]) Take 1 Capsule by mouth nightly at bedtime 30 Capsule 5 09/29/20 24 Active insulin glargine (LANTUS SOLOSTAR U-100 INSULIN) 100 unit/mL (3 mL) penIndications:Unc ontrolled type 2 diabetes mellitus with hyperglycemia ([facility]) ADMINISTER 26 UNITS UNDER THE SKIN EVERY MORNING 15 mL 1 09/29/20 24 Active melatonin 3 mg tabletIndications: Acute insomnia Take 1 Tablet by mouth nightly at bedtime as needed for sleep for sleep 30 Tablet 5 09/29/20 24 Active glipiZIDE XL (GLUCOTROL XL) 5 mg ER, 24 hour tabletIndications: Uncontrolled type 2 diabetes mellitus with hyperglycemia ([facility]) TAKE 1 TABLET BY MOUTH EVERY DAY 90 Tablet 10/12/20 24 Active Active Problems Problem Noted Date Diagnosed Date Lumbar disc herniation 11/10/2024 Overview (11/10/2024): 2024 MRI Osteopenia 02/06/2023 Overview (02/06/2023): 02/05/23 DEXA scan Aortic stenosis, mild 08/03/2022 Overview (08/03/2022): 07/24/22 echocardiogram Systolic murmur of aorta 06/08/2022 Sciatica of right side 06/08/2022 Contusion of right hip 02/09/2022 Uncontrolled type 2 diabetes mellitus with circulatory disorder 10/27/2021 Stress incontinence of urine 03/28/2021 Screening-pulmonary TB 12/04/2019 Insomnia due to other mental disorder 07/28/2019 Moderate episode of recurren t major depressive disorder (HCC-CMS) 07/28/2019 High triglycerides 12/30/2017 Essential hypertension 12/26/2017 Encounters Date Type Department Care Team Description 10/22/2024 2:00 PM EST Office Visit [facility] [address] [place] [id number] Gabe Vera, PharmD Uncontrolled type 2 diabetes mellitus with hyperglycemia ([facility]) (Primary Dx); Essential hypertension 10/22/2024 Travel 09/29/2024 7:40 AM EST Telemedicine Visit [address] [phone] Te Renae PA-C Lumbar pain (Primary Dx); Essential hypertension; Mixed hyperlipidemia; Moderate episode of recurrent major depressive disorder (HCC-CMS); Uncontrolled type 2 diabetes mellitus with hyperglycemia (HCC-CMS); Acute insomnia 08/26/2024 2:00 PM EST Office Visit [address] [phone] Wilfrido Matute PA-C Rectal prolapse (Primary Dx); Psychophysiological insomnia 08/26/2024 Travel from Last 3 Months Immunizations Name Administration Dates Next Due Flu, Adjuvant, 65y+ (Fluad) 08/01/2020 Flu, High Dose, 65y+, Fluzon e High Dose 08/16/2022 Hep B, Adult/Adol (ENERGIX/RECOMBIVAX) 9 Hep B,adult,adjuvanted (HEPLISAV) 12/19/2023 Influenza (FLUZONE), high-do se, trivalent, PF 06/24/2024,07/28/2019 PFIZER COVID VACCINE, PURPLE CAP, 12+ 01/31/2021 PNEUMOCOCCAL CONJUGATE PCV 13 08/04/2019, 018 PNEUMOCOCCAL POLYSACCHARIDE PPV23 2021,04/06/2021(Deferred: Out of Stock - patient left office) TDAP 12/12/2022 ZOSTER VACCINE, RECOMBINANT (SHINGRIX) 1 10/16/2021,06/08/2022,04/06/2021(Defer red: Out of Stock - patient left office) Social History Tobacco Use Types Packs/Day Years Used Date Smoking Tobacco: Never Smokeless Tobacco: Never Chew Tobacco Cessation:Counseling Given: Not Answered Alcohol Use Standard Drinks/Week Comments No 0 [...] Orientation Straight 12/26/2017 12 :43 PM PDT Last Filed Vital Signs Vital Sign Reading [...] Mass Index 27.7 10/22/2024 2:05 PM EST Plan of Treatment Upcoming Encounters Date Type Department Care Team (Late st Contact Info) Description 12/24/2024 2:00 PM EDT Office Visit [address] [phone] Gabe Vera, PharmD [address] [place] [address] Health Maintenance Due Date Last Done Comments Dental Examination 1945 Advanced Care Planning 1945 Retinopathy Screening 01/31/1958 Imm-Hepatitis B (3 of 3 - 19 + 3-dose series) 02/13/2024 12/19/2023, 08/04/2019 [id number] (2023- season) 2024 021 Alcohol and Drug Screen 10/14/2024 09/29/20, 06/24/2024, 12/19/2023, Additional history exists Diabetes Foot Exam 12/18/2024 12/19/2023, 0 12/19/2023, 05/17/2022, Additional history exists Diabetes Microalbumin (w/Creatinine) 12/18/2024 12/19/2023, 10/30/2022, 12/07/2020, Additional history exists Falls Prevention 12/18/2024 12/19/2023, , 03/28/2021, Additional history exists Lipid Screening 12/18/2024 12/19/2023, 10/14, 12/07/2020, Additional history exists Medicare Annual Wellness Visit 12/18/2024 0 12/19/2023, 12/19/2023, 08/16/2022, Additional history exists Depression Monitoring 12/28/2024 09/29/2024 , 06/24/2024, 03/24/2024, Additional history exists Diabetes HbA1c 01/20/2025 10/22/2024, 07/14, 04/23/2024, Additional history exists Serum Creatinine 07/29/2025 07/29/2024, 04/2024, 10/24/2022, Additional history exists Tobacco Screening 10/22/2025 10/22/2024 Imm-DTaP/Tdap/Td (2 - Td or Tdap) 12/12/2032 023 Imm-Pneumococcal 65+ Completed 05/17/2022, 08/04/2019, 10/16/2017 Imm-Zoster, Recombinant Completed 08/16/2022, 06/08 Bone Density Screening Completed , 02/05/2023, 02/05/2023 Imm-Influenza Completed 06/24/2024, 11/0 12/2021, 08/01/2020, Additional history exists Goals Goal Patient Goal Type Associated Problems Recent Progress Patient-Stated? Author Blood Pressure < 140/90 Blood Pressure Essential hypertension 120/70(10/22 2:05 PM EST) No Antoine Conley, Sharron Hypertension: Decrease sodium intake General On track(2022 1:52 PM PDT) No Gabe Vera PharmD HEMOGLOBIN A1C < 7.0 Result Component 8.2(10/22/19 2:57 PM EST) No Antoine Conley PharmD Procedures Procedure Name Priority Date/Time Associated Diagnosis Comments REFERRAL SCANNED DOCUMENT 11/13/2024 3:00 AM EST IMAGING SCANNED DOCUMENT 11/04/2024 3:00 AM EST IMAGING SCANNED DOCUMENT 11/04/2024 3:00 AM EST HGBA1C W/MPG Routine 10/22/2024 2:57 PM EST Uncontrolled type 2 diabetes mellitus with hyperglycemia ([facility]) GLUCOSE, BLOOD BY GLUCOSE MONITORING DEVICE (CLIA WAIVED)POCT Routine 10/22/2024 2:10 PM EST Uncontrolled type 2 diabetes mellitus with hyperglycemia (HCC-CMS) IMAGING SCANNED DOCUMENT 10/08/2024 3:00 AM EST IMAGING SCANNED DOCUMENT 10/08/2024 3:00 AM EST REFERRAL TO VASCULAR SURGERY Routine 09/18/2024 3:00 AM EST Varicose veins of both lower extremities with pain REFERRAL SCANNED DOCUMENT 09/07/2024 3:00 AM EST REFERRAL SCANNED DOCUMENT 09/03/2024 3:00 AM EST COMPREHENSIVE METABOLIC PANEL Routine 07/29/2024 3:13 PM EDT Preoperative clearance LIPID PANEL Routine 12/19/2023 11:06 AM EST High triglycerides MICROALBUMIN/CREATINI NE RATIO, URINE, RANDOM Routine 12/19/2023 11:06 AM EST Uncontrolled type 2 diabetes mellitus with hyperglycemia ([facility]) DXA BONE DENSITY STUDY 1/> SITES AXIAL SKEL Routine 02/05/2023 3:00 AM EDT Postmenopausal from Last 3 Months or Most Recently Relevant to Health Maintenance Results * REFERRAL SCANNED DOCUMENT (11/13/2024 3:00 AM EST) Only the most recent of3 resultswithin the time period is included. 11/13/2024 3:00 AM EST [employer] PA-C SCAN REFERRAL Final Result * IMAGING SCANNED DOCUMENT (11/04/2024 3:00 AM EST) Only the most recent of4 resultswithin the time period is included. 11/04/2024 3:00 AM EST [employer] PA-C SCAN IMAGING Final Result * (ABNORMAL) HGBA1C W/MPG (10/22/2024 2:57 PM EST) HEMOGLOBIN A1C 8.2(H) <5.7 % of total Hgb [employer] Comment: For someone without known diabetes, a [...] ?? MEAN PLASMA GLUCOSE 215 mg/dL (calc) [employer] Blood Blood / Unknown 10/22/2024 2 :57 PM EST 10/22/2024 2:59 PM EST Narrative [employer] [facility] - 10/23/2024 9:13 AM EST FASTING:YES Gabe Iqbal PharmD LAB - BLOOD D RAW Final Result [employer] [facility] [address] [address], [employer] [facility] [address] [place] [address] * (ABNORMAL) GLUCOSE, BLOOD BY GLUCOSE MONITORING DEVICE (CLIA WAIVED)POCT (10/22/2024 2:10 PM EST) GLUCOSE 275(A) 70 - 100 mg/dL [facility]- BACK OFFICE POCT Capillary Blood Blood / Unknown 2:10 PM EST Gabe Josephine Iqbal PharmD LAB - BLOOD D RAW Final Result Performing Organization Address City/[facility]/ZIP Co de Phone Number [facility]- BACK OFFICE POCT * REFERRAL TO VASCULAR SURGERY (09/18/2024 3:00 AM EST) 09/18/2024 3:00 AM EST Wilfrido Matute PA-C REFERRAL Final Result * (ABNORMAL) COMPREHENSIVE METABOLIC PANEL (07/29/2024 3:13 PM EDT) GLUCOSE 181(H) 65 - 139 mg/dL [employer] [facility] Comment: ?Non-fasting reference interval UREA NITROGEN (BUN) 17 7 - 25 mg/dL [employer] CREATININE (blood) 0.88 0.60 - 0.95 mg/dL [employer] EGFR 66 > OR = 60 mL/min/1. 73m2 [employer] BUN/CREATININE RATIO SEE NOTE: [employer] Comment: ?? Not Reported: BUN and Creatinine are within ?? reference range. ? SODIUM 139 135 - 146 mmol/L [employer] POTASSIUM 4.0 3.5 - 5.3 mmol/L [employer] CHLORIDE 101 98 - 110 mmol/L [employer] CARBON DIOXIDE 29 20 - 32 mmol/L [employer] CALCIUM 9.6 8.6 - 10.4 mg/dL [employer] [facility] PROTEIN, TOTAL 6.7 6.1 - 8.1 g/dL [employer] ALBUMIN 4.0 3.6 - 5.1 g/dL [employer] GLOBULIN 2.7 1.9 - 3.7 g/dL (calc) [employer] ALBUMIN/GLOBULI N RATIO 1.5 1.0 - 2.5 (calc) [employer] BILIRUBIN, TOTAL 0.6 0.2 - 1.2 mg/dL [employer] ALKALINE PHOSPHATASE 59 37 - 153 U/L [employer] [facility] AST 14 10 - 35 U/L [employer] ALT 14 6 - 29 U/L [employer] Blood Blood / Unknown 07/29/2024 3 :13 PM EDT 07/29/2024 3:14 PM EDT Narrative [employer] [facility] - 07/30/2024 6:02 AM EDT FASTING:NO Wilfrido Matute PA-C LAB - BLOOD DRAW Final Resul t [employer] [address] [address], [employer] [address] [address] * (ABNORMAL) MICROALBUMIN/CREATININE RATIO, URINE, RANDOM (12/19/2023 11:06 AM EST) CREATININE, RANDOM URINE 67 20 - 275 mg/dL [employer] [facility] MICROALBUMIN 4.0 mg/dL [facility] [employer] [facility] Comment: Reference Range Not established MICROALBUMIN/CREA TININE RATIO, RANDOM URINE 60(H) <30 mcg/mg creat [employer] [facility] Comment: The ADA defines abnormalities in albumin excretion as follows: Albuminuria Category ?Result (mcg/mg creatinine) Normal to Mildly increased ?? <30 Moderately increased ? 30-299 Severely increased ? > OR = 300 The ADA recommends that at least two of three specimens collected within a 3-6 month period be abnormal before considering a patient to be within a diagnostic category. Urine Urine specimen / Unknown 12/19/2023 11:06 AM EST 12/19/2023 11:07 AM EST Narrative [facility] - 12/20/2023 6:17 PM EST FASTING:NO PATIENT UNABLE TO VOID; ADVISED TO RETURN FOR COLLECTION. us Wilfrido Matute PA-C LAB - NO BLOOD DRAW Final Re sult [facility] [address] [address], [employer] [facility] [address] [place] [address] * (ABNORMAL) LIPID PANEL (12/19/2023 11:06 AM EST) CHOLESTEROL, TOTAL 239(H) <200 mg/dL [employer] [facility] HDL CHOLESTEROL 39(L) > OR = 50 mg/dL [employer] [facility] TRIGLYCERIDES 417(H) <150 mg/dL [employer] Comment: If a non-fasting specimen was collected, consider repeat triglyceride testing on a fasting specimen if clinically indicated. Miriam et al. J. of Clin. Lipidol. 2015;9:129-169. LDL-CHOLESTEROL See Note [employer] Comment: LDL cholesterol not calculated. Triglyceride levels greater than 400 mg/dL invalidate calculated LDL results. Reference range: <100 Desirable range <100 mg/dL for primary prevention; ?? <70 mg/dL for patients with CHD or diabetic patients with > or = 2 CHD risk factors. LDL-C is now calculated using the Wily-Cassia calculation, which is a validated novel method providing better accuracy than the Friedewald equation in the estimation of LDL-C. Wily COOK et al. RAHEEL. 2013;310(19): 6861-9208 (http://education.Uguru/faq/RCG648) CHOL/HDLC RATIO 6.1(H) <5.0 (calc) [employer] NON-HDL CHOLESTEROL 200(H) <130 mg/dL (calc) [employer] Comment: For patients with diabetes plus 1 major ASCVD risk factor, treating to a non-HDL-C goal of <100 mg/dL (LDL-C of <70 mg/dL) is considered a therapeutic option. Blood Blood / Unknown 12/19/2023 1 1:06 AM EST 12/19/2023 11:07 AM EST Narrative [facility] - 12/20/2023 6:17 PM EST FASTING:NO PATIENT UNABLE TO VOID; ADVISED TO RETURN FOR COLLECTION. us Wilfrido Matute PA-C LAB - BLOOD DRAW Final Resul t [facility] [address] [address], [employer] [facility] [address] [place] [address] * DXA BONE DENSITY STUDY 1/> SITES AXIAL SKEL (02/05/2023 3:00 AM EDT) 02/05/2023 3:00 AM EDT us Wilfrido Matute PA-C IMG DXA Edited Resul t - Final from Last 3 Months or Most Recently Relevant to Health Maintenance [facility] Member Subscriber Plan / Payer (Ef fective 2023-Present) Name:Zaida Geiger Relation to Subscriber:Self Name:Zaida Geiger Payer ID:[id number] Group ID:Not on file Type:Indemnity Address: [place] [address] [address] [address] [address] Care Teams Handbag Operator Relationship Specialty Start Date End Date Wilfrido Matute PA-C [address] [place] [address] PCP - General 03/23/22
--- OUTSIDE RECORDS SUMMARY | 2024-11-26 10:14 | XMS_ITS | Clinical Summary ---
Author Organization [employer] [facility] Address [address] [place] [address] Care Team Providers Care Telehealth Case Manager Name Role Phone Unavailable Primary Care Provider [...] Tdap) 12/12/2032 12/12/2022, 03/07/2022, 12/17/2017 Pneumococcal Vaccine: 50+ Years Completed 05/17/2022, 08/04/2019, 10/16/2017 Zoster Vaccines [...] Most Recently Relevant to Health Maintenance Insurance [facility] [place] [address] [facility] [place] [facility]
--- OUTSIDE RECORDS SUMMARY | 2024-11-26 10:14 | XMS_ITS | Data Portability ---
Author Organization [facility], [facility] Address [address] [place] [address] Assessment No assessment recorded. Plan of Treatment Reminders Order Date Submit Date Provider Last Modified By Organization Details Last Modified Time Details Appointments None recorded. Lab None recorded. Referral None recorded. Procedures None recorded. Surgeries None recorded. Imaging XR, knee, 4 or more view - 111 R KNEE 4V W/B. SPAN SPEAKING 2023 024 [facility] [facility], [address], [address], [place], [address], 4 10:22:06 Medication Orders None recorded. Patient TargetsNo targets recorded. Patient InstructionsNo instructions recorded. Reason for Referral None Reported. Problems Name Problem SNOMED Code Status Onset Date Resolution Date Notes Provider Name and Address Organization Details Recorded Time Pain of right knee joint [id number] Active [address], [facility] 09:27:27 Problem Notes None recorded. Procedures Surgical History Date Name Laterality Status Provider Name and Address Organization Details Recorded Time 01/28/2024 Sports Knee 4&1 completed Yordy Henson PA-C [address], [place], [address], [facility] 01/28/2024 13:30:46 Imaging Results None recorded. [...] Updated DateTime 01/28/2024 149.86 cm 25.4 kg/m2 97133.64 g ALYSSIA BENJAMIN [place] - [facility] 01/28/2024 09:34:56 Social History None recorded. Functional Status None recorded. Mental Status None recorded. Family History Nothing Reported. Medical History No medical history recorded. Gynecological HistoryNo gynecological history recorded. Obstetrics History GPAL:G 0 P 0 0 0 0 Past Encounters Encounter ID Performer Location Encounter Start Date Encounter Closed Date Diagnosis/Indication Diagnosis SNOMED-CT Code Diagnosis ICD10 Code Diagnosis Note [id number] [facility] [address] [place] [address] 01/28/2024 09:06:54 02/07/2024 10:22:06 Pain of right knee joint 3338404666 39358 M25.561 Osteoarthr itis of right knee joint 3118674581 22810 M17.11 Health Concerns Section Related Observation LastModified by Organization Detai ls LastModified Time None Recorded Concern Status LastModified by Organization Details LastModified Time None Recorded Advance Directives Directive None Recorded Payers Encounter Date Sequence Insurance Name Policy Number Policy Yañez Covered Member ID Yañez Member ID Guarantor Name 01/28/2024 [facility] (MEDICARE REPLACEMENT/ADV ANTAGE - HMO) Zaida Geiger [id number] Zaida Geiger Notes Date Note Type Note Provider Name and Address Organization Details Recorded Time 01/28/2024 text/html I am seeing the patient today under the supervision of Dr. Martinez who was available but who did not see the patient. HPI:Patient is an 78-year-old female Malay speaking only who presents to the office today with her for right knee pain. Teller Manager services were used for this visit. [...] us as scheduled. Yordy Henson PA-C [address], [place], [address], [facility] - [facility] 01/28/2024 13:31:11 OBGyn Episode No OBEpisode recorded.
== END 2024-11-26 10:18 | disposition home or self-care (01) ==
PROVIDERS: Visit Provider Surgery Vascular Surgery
DX: I83.812 Varicose veins of left lower extremity with pain (principal)
CPT/HCPCS: 99214

== ENCOUNTER → 2024-11-26 09:42 | Outpatient (BNVA) | payer OTHER, SELFPAY | PROVIDERS: Visit Provider Surgery Vascular Surgery | DX: I83.812 Varicose veins of left lower extremity with pain (principal) | CPT/HCPCS: 99212 ==

== ENCOUNTER 2024-12-11 08:34 | Outpatient (AMB) | payer MEDICARE, SELFPAY ==
[2024-12-11 08:38] VITALS: BMI 25.4
--- NOTE | 2024-12-11 08:38 | MHC.OFFVIS ---
Vital Signs 12/11/24 08:38 Height 4 ft 11 in Weight 126 lb BMI 25.4 Intake Visit Reasons: OV-MRI lumbar spine review Intake Note: Zaida 79 yr old female presents today for her lumbar MRI review. States she continues to have pain. She is here with her friend Pablito who mention patient was recently diagnose with alzheimer's disease. Music Composition Teacher Required: Yes Music Composition Teacher Services: Music Composition Teacher Present (Mary SANTANA/ADONIS) Allergies Penicillins Allergy (Unknown, Verified 12/11/24 08:44) Unknown aspirin [ASA] Allergy (Verified 12/11/24 08:44) Unknown HPI Comments Details: Patient was last seen by me on 05/19/2024 presenting with left-sided radiculitis symptoms. MRI was ordered. However MRI was not done until 11/04/2024. Images reviewed by me and shows significant disc herniation left-sided L3-4, Modic changes, and spondylosis resulting in spinal stenosis L4-5. Patient also seen by pain management last August complaining of left knee pain. Referred to physical therapy. Also diagnosed formally with Alzheimers recently. Today she points to RIGHT leg/knee. She maintains it's because she fell down the stairs (2 years ago). Feels tightness on the right buttocks. She had recent right sided hip xray which showed arthritis. They report poorly controlled diabetes. [facility] Medical History Dementia Diabetes HTN (hypertension) Social History Alcohol intake: never Patient Tobacco Use Status: Never used Tobacco Current occupational status: disabled Physical Exam Vital Signs: BMI result Body Mass Index 25.4 Constitutional: Patient appears to be in no acute distress, well nourished and well developed. Patient was appropriately conversant and oriented. MSK: No specific abnormalities found on inspection of the spine and all extremities. Tender right SI joint, right greater trochanter, right buttocks. Bilateral knees did not show any effusion, redness, warmth. Able to stand and walk without antalgia or obvious weakness. Results Reviewed Results Reviewed: Independently reviewed lumbar MRI images: Shows significant disc herniation left L3-4, Modic changes L3-4, L4-5 central stenosis from spondylosis. Ordering Physician: Inge Bernal NP Date of Service: 11/06/24 Procedure(s): XR hip RT w PEL 1V Accession Number(s): [id number] cc: Inge Bernal NP~ EXAMINATION: XR HIP, RIGHT CLINICAL INFORMATION: pain 1 week COMPARISON: Left hip radiographs 07/28/2024. TECHNIQUE: AP pelvis, and 2 views of the right hip. FINDINGS: Normal bone mineralization. No definite fracture, dislocation, or suspicious bone lesion. Mild osteophytic changes of both hip joints symmetrically. There are gluteal enthesophytes involving the greater trochanters and iliac wings. There are arthritic changes in the lower lumbar spine. The sacrum is intact. The SI joints appear normal. Soft tissues demonstrate vascular calcifications. XR/XR hip RT w PEL 1V IMPRESSION: No fracture or acute bony abnormalities. No significant change from 07/28/2024. Electronically signed by: Malcom Valle MD 11/06/2024 01:06 PM [facility] [employer] Workstation: [id number] Ordering Physician: Yvette Salguero Date of Service: 11/04/24 Procedure(s): MR lumbar spine wo con Accession Number(s): [id number] cc: Wilfrido Matute PA-C; Yvette Salguero~ CLINICAL HISTORY: M54.16 - Radiculopathy, lumbar region MR lumbar spine without gadolinium Comparison: None Findings: Multilevel disc dehydration. Phwwmtzt-uw-khajth disc narrowing noted at several levels. L2 vertebral body hemangioma. Qzpd-bb-pqpychfl Modic type 1 changes at L3/L4. No evidence of marrow infiltration. Normal alignment without acute fracture. Conus terminates at T12/L1. Unremarkable appearance of the visualized cord and conus medullaris. L5/S1: Mild disc bulge and bilateral facet hypertrophy associated with mild right lateral recess and bilateral neural foraminal compromise. Up to 5 mm (AP dimension) right anterior zone disc-osteophyte. L4/L5: Up to 3 mm (AP dimension) disc bulge and facet/ligamentum flava hypertrophy associated with severe bilateral lateral recess stenosis and moderate central canal compromise (midsagittal dimension of the thecal sac measures 7 mm). Cotp-nd-onnliegj right and mild left neural foraminal stenosis. L3/L4: Left-sided disc herniation (with a superiorly migrating component -to the infrapedicular L3 level- from the left central to left neural foraminal zones) along with facet/ligamentum flava hypertrophy associated with severe bilateral lateral recess, severe central canal (midsagittal dimension of the thecal sac measures 4 mm), as well as severe left and mild right neural foraminal compromise. Small focus/foci of susceptibility artifact in the vicinity of the superior aspect of the herniated disc (posterior to the L3 vertebral body) may be due to vacuum disc phenomena. L2/L3: Disc bulge and facet/ligamentum flava hypertrophy associated with nloc-nw-usjuwmaw bilateral lateral recess and central canal compromise , as well as mild bilateral neural foraminal stenosis. T12/L1 and L1/L2: No evidence of significant central canal or neural foraminal stenosis. Bilateral renal cyst/cystic appearing lesions could be further evaluated with ultrasound. A few small uterine fibroids. Colonic diverticulosis. IMPRESSION: L3/L4: Left-sided disc herniation (with a superiorly migrating component -to the infrapedicular L3 level- from the left central to left neural foraminal zones) along with facet/ligamentum flava hypertrophy associated with severe bilateral lateral recess, severe central canal (midsagittal dimension of the thecal sac measures 4 mm), as well as severe left neural foraminal compromise. L4/L5: Up to 3 mm (AP dimension) disc bulge and facet/ligamentum flava hypertrophy associated with severe bilateral lateral recess stenosis and moderate central canal compromise (midsagittal dimension of the thecal sac measures 7 mm). Cwsz-tf-upxihxsj right neural foraminal stenosis. This document has been electronically signed by: Aggie Gutiérrez MD on 11/04/2024 10:58:40 Assessment & Plan Assessment & Plan (1) Trochanteric bursitis, right hip: Code(s): M70.61 - Trochanteric bursitis, right hip Category: Medical (2) Lumbar disc herniation: Code(s): M51.26 - Other intervertebral disc displacement, lumbar region Category: Medical Plan She is here for MRI review which showed left-sided disc herniation L3-4 and spinal stenosis L4-5. Her previous complaints when I last saw her was left-sided leg pain. However today, she maintains that her pain is under right side. Possibly having right greater trochanter bursitis. We talked about possible injection today but they were concerned about her poorly-controlled diabetes. We decided on trying topical medication, lidocaine patch, instead. Also referring her to physical therapy to work on the right greater trochanter, SI joint and lower back. Assessment and plan discussed with patient, and patient was agreeable. All questions were answered thoroughly. Follow up 3 months. Yvette Pedro MD, ANTOINE Board Certified, [place] [employer] and Rehabilitation (ABPMR) Board Certified, [place] [employer] Electrodiagnostic Medicine (ABEM) Orders: Orders PT Evaluation and Treatment Today M51.26 - Other intervertebral disc displacement, lumbar region, M70.61 - Trochanteric bursitis, right hip Medications: Changed From lidocaine 5% (Lidoderm) leave on most painful area for up to 12 hrs 1 patch topical DAILY PRN 30 ea 0RF pain MDD remove after 12 hours To lidocaine 5% (Lidoderm) leave on most painful area (right hip), on for 12 hours, off for next 12 hours 1 patch topical DAILY PRN 30 ea 0RF pain MDD remove after 12 hours Coding Level of Care Code Est Pt Level 4 (55922) Diagnoses Trochanteric bursitis, right hip M70.61 Lumbar disc herniation M51.26
--- OUTSIDE RECORDS SUMMARY | 2024-12-11 08:46 | XMS_ITS | Clinical Summary ---
Author Organization [employer] [facility] Address [address] [place] [address] Care Team Providers Care Freight Representative Name Role Phone Unavailable Primary Care Provider [...] Health Maintenance Insurance [facility]
--- OUTSIDE RECORDS SUMMARY | 2024-12-11 08:46 | XMS_ITS | Clinical Summary ---
Author Organization [facility] Address [address] [place] [address] Care Team Providers Care Staffing Clerk Name Role Phone Wilfrido Matute PA-C Primary [...] 08/11/19 Penicillins 12/26/2017 Medications miscellaneous medical supply miscIndications:G ait instability by miscellaneous route once daily Supply: Walker with seat Dx: gait instability Length of need: Lifetime 1 Each 021 Active lidocaine (LIDODERM) 5 % patchIndications: Sciatica of right side,Pain of both hip joints Place 1 Patch onto the skin once daily (every 24 hours) 30 Patch 022 Active diclofenac sodium (VOLTAREN) 1 % gel 06/17/2022 DICLOFENAC 1% GEL 100GM 100.00 g 0 7 APPLY TOPICALLY TWICE DAILY NEEDED Authorized by: LUDMILA MORA 022 Active alcohol swabsIndications: Uncontrolled type 2 diabetes mellitus with hyperglycemia ([facility]) Use to clean skin up to 2x/d PRN DXE11.59 100 Each 11 022 Active miscellaneous medical supply miscIndications:A t risk for falling,Gait instability by miscellaneous route once daily Dx: at risk for fall, gait instability, LEWIS: 99, Supply: cane. Patient is 4' 11 1 Each 022 Active miscellaneous medical supply miscIndications:G ait instability by miscellaneous route once daily Supply: Shower handle Dx: Gait instability Length of need: lifetime 1 Each 022 Active blood pressure test kit-largeIndicati ons:Essential hypertension Use once daily to check BP. [employer] 1 Kit 023 Active clotrimazole (LOTRIMIN) 1 % creamIndications: Intertrigo Apply topically 2 (two) times daily 45 g 1 023 Active calcium-vitamin D3-vitamin K 500 mg-1,000 unit-40 mcg chewIndications:P ostmenopausal Chew and swallow 1 Tablet by mouth once daily 90 Tablet 1 024 Active blood sugar diagnostic (ONETOUCH VERIO TEST STRIPS) stripsIndications :Uncontrolled type 2 diabetes mellitus with hyperglycemia ([facility]) Use to test BG 1x/d UD DXE11.59 OneTouch Verio Test Strips 100 Each 11 024 Active lancets (ONETOUCH DELICA PLUS LANCET) 30 gaugeIndications: Uncontrolled type 2 diabetes mellitus with hyperglycemia ([facility]) Use to test BG 1x/d UD [id number] One Touch Delica Plus Lancet 30G 100 Each 11 024 Active blood-glucose meter (ONETOUCH VERIO REFLECT METER) monitoring kitIndications:Un controlled type 2 diabetes mellitus with hyperglycemia ([facility]) Use to test BG 1x/d UD DXE11.65 OneTouch Verio Reflect Meter 1 Each 024 Active MISCELLANEOUS MEDICAL SUPPLY MISCIndications:R ight leg pain,Gait instability,Pain of both hip joints by miscellaneous route daily Dx: right leg pain, pain in both hip[ joints, gait instability. LEWIS: 99, Supply: 4 wheel mobility scooter for adults with basket 1 Each 024 Active pen needle, diabetic (BD ULTRA-FINE RUBEN PEN NEEDLE) 32 gauge x 5/32 ndleIndications:U ncontrolled type 2 diabetes mellitus with hyperglycemia ([facility]) Use to inject insulin 1x/d UD DXE11.59 100 Each 024 Active hydrOXYzine HCL (ATARAX) 25 mg tabletIndications :Psychophysiologi dylon insomnia Take 1 Tablet by mouth nightly at bedtime as needed for anxiety or sleep 30 Tablet 1 024 Active amLODIPine (NORVASC) 10 mg tabletIndications :Essential hypertension Take 1 Tablet by mouth once daily 90 Tablet 1 024 Active atorvastatin (LIPITOR) 40 mg tabletIndications :Mixed hyperlipidemia Take 1 Tablet by mouth once daily 90 Tablet 1 024 Active gabapentin (NEURONTIN) 100 mg capsuleIndication s:Moderate episode of recurrent major depressive disorder (HCC-CMS) Take 1 Capsule by mouth nightly at bedtime 30 Capsule 5 024 Active insulin glargine (LANTUS SOLOSTAR U-100 INSULIN) 100 unit/mL (3 mL) penIndications:Un controlled type 2 diabetes mellitus with hyperglycemia ([facility]) ADMINISTER 26 UNITS UNDER THE SKIN EVERY MORNING 15 mL 1 Active melatonin 3 mg tabletIndications :Acute insomnia Take 1 Tablet by mouth nightly at bedtime as needed for sleep for sleep 30 Tablet 5 024 Active glipiZIDE XL (GLUCOTROL XL) 5 mg ER, 24 hour tabletIndications :Uncontrolled type 2 diabetes mellitus with hyperglycemia ([facility]) TAKE 1 TABLET BY MOUTH EVERY DAY 90 Tablet 024 Active JARDIANCE 25 mg tabIndications:Un controlled type 2 diabetes mellitus with hyperglycemia ([facility]) TAKE 1 TABLET BY MOUTH DAILY 90 Tablet 1 025 Active JARDIANCE 25 mg tabIndications:Un controlled type 2 diabetes mellitus with hyperglycemia ([facility]) TAKE 1 TABLET BY MOUTH DAILY 90 Tablet 1 024 2024 Discontinued Active Problems Problem Noted Date Diagnosed Date [...] Description 10/22/2024 2:00 PM EST Office Visit [facility] [address] [place] [id number] Gabe Vera, NathaliaD Uncontrolled type 2 diabetes mellitus with hyperglycemia (HCC-CMS) (Primary Dx); Essential hypertension 10/22/2024 Travel 09/29/2024 7:40 AM EST Telemedicine Visit [facility] [address] [place] [id number] Te Renae PA-C Lumbar pain (Primary Dx); Essential hypertension; Mixed hyperlipidemia; Moderate episode of recurrent major depressive disorder (HCC-CMS); Uncontrolled type 2 diabetes mellitus with hyperglycemia (HCC-CMS); Acute insomnia from Last 3 Months Immunizations Name Administration [...] Office Visit [facility] [address] [place] [address] Gabe Vera, PharmD [address] [place] [address] Health Maintenance Due Date Last Done Comments Dental Examination 1945 Advanced Care Planning 1945 Retinopathy Screening 01/31/1956 Imm-Hepatitis B (3 of 3 - 19 + 3-dose series) 02/13/2024 12/19/2023, 08/04/2019 Thq-[id number]-90 (2023- season) 2024 021 Alcohol and Drug [...] Completed 08/16/2022, 06/08 Bone Density Screening Completed 3, 02/05/2023, 02/05/2023 Imm-Influenza Completed 06/24/2024, 11/0 12/2021, 08/01/2020, Additional history exists Goals Goal Patient Goal Type Associated Problems Recent Progress Patient-Stated? Author Blood Pressure < 140/90 Blood Pressure Essential hypertension 120/70(10/22 2:05 PM EST) No Antoine Conley PharmD Hypertension: Decrease sodium intake General On track(2022 [...] type 2 diabetes mellitus with hyperglycemia (HCC-CMS) GLUCOSE, BLOOD BY GLUCOSE MONITORING DEVICE (CLIA WAIVED)POCT Routine 10/22/2024 2:10 PM EST Uncontrolled type 2 diabetes mellitus with hyperglycemia (HCC-CMS) IMAGING SCANNED DOCUMENT 10/08/2024 3:00 AM EST IMAGING SCANNED DOCUMENT 10/08/2024 3:00 AM EST REFERRAL TO VASCULAR SURGERY Routine 09/18/2024 3:00 AM EST Varicose veins of both lower extremities with pain COMPREHENSIVE METABOLIC PANEL Routine 07/29/2024 3:13 PM EDT Preoperative clearance LIPID PANEL Routine 12/19/2023 11:06 AM EST High triglycerides MICROALBUMIN/CREATINI NE RATIO, URINE, RANDOM Routine 12/19/2023 11:06 AM EST Uncontrolled type 2 diabetes mellitus with hyperglycemia (HCC-CMS) DXA BONE DENSITY STUDY 1/> SITES AXIAL SKEL Routine 02/05/2023 3:00 AM EDT Postmenopausal from Last 3 Months or Most Recently Relevant to Health Maintenance Results * REFERRAL SCANNED DOCUMENT (11/13/2024 3:00 AM EST) 11/13/2024 3:00 AM EST Wilfrido Samaniegoo PA-C SCAN REFERRAL Final Result * IMAGING SCANNED DOCUMENT (11/04/2024 3:00 AM EST) Only the most recent of4 resultswithin the time period is included. 11/04/2024 3:00 AM EST Wilfrido Penalo PA-C SCAN IMAGING Final Result * (ABNORMAL) HGBA1C W/MPG (10/22/2024 2:57 PM EST) HEMOGLOBIN A1C 8.2(H) <5.7 % of total Hgb [facility] Comment: For someone without known diabetes, a [...] ?? MEAN PLASMA GLUCOSE 215 mg/dL (calc) [facility] Blood Blood / Unknown 10/22/2024 2 :57 PM EST 10/22/2024 2:59 PM EST Narrative [facility] - 10/23/2024 9:13 AM EST FASTING:YES Gabe Iqbal PharmD LAB - BLOOD D RAW Final Result [facility] [address] [place] [address], [facility] [address] [address] * (ABNORMAL) GLUCOSE, BLOOD BY GLUCOSE MONITORING DEVICE (CLIA WAIVED)POCT (10/22/2024 2:10 PM EST) GLUCOSE 275(A) 70 - 100 mg/dL [facility] POCT Capillary Blood Blood / Unknown 2:10 PM EST Gabe Iqbal PharmD LAB - BLOOD D RAW Final Result [facility] BACK OFFICE POCT * REFERRAL TO VASCULAR SURGERY (09/18/2024 3:00 AM EST) 09/18/2024 3:00 AM EST Wilfrido Matute PA-C REFERRAL Final Result * (ABNORMAL) COMPREHENSIVE METABOLIC PANEL (07/29/2024 3:13 PM EDT) GLUCOSE 181(H) 65 - 139 mg/dL [facility] Comment: ?Non-fasting reference interval UREA NITROGEN (BUN) 17 7 - 25 mg/dL [facility] CREATININE (blood) 0.88 0.60 - 0.95 mg/dL [facility] EGFR 66 > OR = 60 mL/min/1. 73m2 [facility] BUN/CREATININE RATIO SEE NOTE: [facility] Comment: ?? Not Reported: BUN and Creatinine are within ?? reference range. ? SODIUM 139 135 - 146 mmol/L [facility] POTASSIUM 4.0 3.5 - 5.3 mmol/L [facility] CHLORIDE 101 98 - 110 mmol/L [facility] CARBON DIOXIDE 29 20 - 32 mmol/L [facility] CALCIUM 9.6 8.6 - 10.4 mg/dL [facility] PROTEIN, TOTAL 6.7 6.1 - 8.1 g/dL [facility] ALBUMIN 4.0 3.6 - 5.1 g/dL [facility] GLOBULIN 2.7 1.9 - 3.7 g/dL (calc) [facility] ALBUMIN/GLOBULI N RATIO 1.5 1.0 - 2.5 (calc) [facility] BILIRUBIN, TOTAL 0.6 0.2 - 1.2 mg/dL [facility] ALKALINE PHOSPHATASE 59 37 - 153 U/L [facility] AST 14 10 - 35 U/L [facility] ALT 14 6 - 29 U/L [facility] Blood Blood / Unknown 07/29/2024 3 :13 PM EDT 07/29/2024 3:14 PM EDT Narrative [facility] - 07/30/2024 6:02 AM EDT FASTING:NO us Wilfrido Matute PA-C LAB - BLOOD DRAW Final Resul t [facility] [address] [address], [facility] [address] [address] * (ABNORMAL) MICROALBUMIN/CREATININE RATIO, URINE, RANDOM (12/19/2023 11:06 AM EST) CREATININE, RANDOM URINE 67 20 - 275 mg/dL [facility] MICROALBUMIN 4.0 mg/dL [facility] Comment: Reference Range Not established MICROALBUMIN/CREA TININE RATIO, RANDOM URINE 60(H) <30 mcg/mg creat [facility] Comment: The ADA defines abnormalities in [...] AM EST 12/19/2023 11:07 AM EST Narrative [facility] - 12/20/2023 6:17 PM EST FASTING:NO PATIENT UNABLE TO VOID; ADVISED TO RETURN FOR COLLECTION. us Wilfrido Matute PA-C LAB - NO BLOOD DRAW Final Re sult [facility] [address] [address], [facility] [address] [place] [address] * (ABNORMAL) LIPID PANEL (12/19/2023 11:06 AM EST) CHOLESTEROL, TOTAL 239(H) <200 mg/dL [facility] HDL CHOLESTEROL 39(L) > OR = 50 mg/dL [facility] TRIGLYCERIDES 417(H) <150 mg/dL [facility] Comment: If a non-fasting specimen was collected, consider repeat triglyceride testing on a fasting specimen if clinically indicated. Miriam et al. J. of Clin. Lipidol. 2015;9:129-169. LDL-CHOLESTEROL See Note [facility] Comment: LDL cholesterol not calculated. Triglyceride levels greater than 400 mg/dL invalidate calculated LDL results. Reference range: <100 Desirable range <100 mg/dL for primary prevention; ?? <70 mg/dL for patients with CHD or diabetic patients with > or = 2 CHD risk factors. LDL-C is now calculated using the Wily-Antony calculation, which is a validated novel method providing better accuracy than the Friedewald equation in the estimation of LDL-C. Wily SS et al. RAHEEL. 2013;310(19): 2381-8388 (http://education.[employer]/faq/FJJ376) CHOL/HDLC RATIO 6.1(H) <5.0 (calc) [facility] NON-HDL CHOLESTEROL 200(H) <130 mg/dL (calc) [facility] Comment: For patients with diabetes plus 1 major ASCVD risk factor, treating to a non-HDL-C goal of <100 mg/dL (LDL-C of <70 mg/dL) is considered a therapeutic option. Blood Blood / Unknown 12/19/2023 1 1:06 AM EST 12/19/2023 11:07 AM EST Narrative [facility] - 12/20/2023 6:17 PM EST FASTING:NO PATIENT UNABLE TO VOID; ADVISED TO RETURN FOR COLLECTION. us Wilfrido Matute PA-C LAB - BLOOD DRAW Final Resul t [facility] [address] [address], [facility] [address] [place] [address] * DXA BONE DENSITY STUDY 1/> SITES AXIAL SKEL (02/05/2023 3:00 AM EDT) 02/05/2023 3:00 AM EDT Wilfrido Matute PA-C IMG DXA Edited Resul t - Final from Last 3 Months or Most Recently Relevant to Health Maintenance Insurance [facility] Member Subscriber Plan / Payer (Ef fective 2023-Present) Name:Juanjo Zaida Relation to Subscriber:Self Name:Geiger Zaida Payer ID:[id number] Group ID:Not on file Type:Indemnity Address: [facility] [place] [address] Care Teams Staffing Clerk Relationship Specialty Start Date End Date Wilfrido Matute PA-C [address] [place] [address] PCP - General 03/23/22
--- OUTSIDE RECORDS SUMMARY | 2024-12-11 08:46 | XMS_ITS | Data Portability ---
Author Organization [facility], [facility] Address [address] [place] [address] Assessment No assessment recorded. Plan of Treatment Reminders Order Date Submit Date Provider Last Modified By Organization Details Last Modified Time Details Appointments None recorded. Lab None recorded. Referral None recorded. Procedures None recorded. Surgeries None recorded. Imaging XR, knee, 4 or more view - 111 R KNEE 4V W/B. SPAN SPEAKING 2023 024 [facility], [address], [address], [place], [address], 4 10:22:06 Medication Orders None recorded. Patient TargetsNo targets recorded. Patient InstructionsNo instructions recorded. Reason for Referral None Reported. Problems Name Problem SNOMED Code Status Onset Date Resolution Date Notes Provider Name and Address Organization Details Recorded Time Pain of right knee joint [id number] Active [address], [facility] 09:27:27 Problem Notes None recorded. Procedures Surgical History Date Name Laterality Status Provider Name and Address Organization Details Recorded Time 01/28/2024 Sports Knee 4&1 completed Yordy Henson PA-C [address], [place], [address], [facility] 01/28/2024 13:30:46 Imaging Results None recorded. Procedure [...] Updated DateTime 01/28/2024 149.86 cm 25.4 kg/m2 11865.64 g ALYSSIA BENJAMIN [place] - [facility] 01/28/2024 09:34:56 Social History None recorded. Functional Status None recorded. Mental Status None recorded. Family History Nothing Reported. Medical History No medical history recorded. Gynecological HistoryNo gynecological history recorded. Obstetrics History GPAL:G 0 P 0 0 0 0 Past Encounters Encounter ID Performer Location Encounter Start Date Encounter Closed Date Diagnosis/Indication Diagnosis SNOMED-CT Code Diagnosis ICD10 Code Diagnosis Note [id number] [facility] [address] [place] [address] 01/28/2024 09:06:54 02/07/2024 10:22:06 Pain of right knee joint 8001357669 71452 M25.561 Osteoarthr itis of right knee joint 6048211366 61138 M17.11 Health Concerns Section Related Observation LastModified by Organization Detai ls LastModified Time None Recorded Concern Status LastModified by Organization Details LastModified Time None Recorded Advance Directives Directive None Recorded Payers Encounter Date Sequence Insurance Name Policy Number Policy Yañez Covered Member ID Yañez Member ID Guarantor Name 01/28/2024 1 [facility] - DOS ON OR AFTER 2023 - ONE CARE (MEDICARE REPLACEMENT/ADV ANTAGE - HMO) Zaida Geiger [id number] Zaida Geiger Notes Date Note Type Note Provider Name and Address Organization Details Recorded Time 01/28/2024 text/html I am seeing the patient today under the supervision of Dr. Martinez who was available but who did not see the patient. HPI:Patient is an 78-year-old female Romansh speaking only who presents to the office today with her for right knee pain. Registered Nurse Obstetrics services were used for this visit. Patient [...] us as scheduled. Yordy Henson PA-C [address] [facility] [address], [place], [address], [facility] - [facility] 01/28/2024 13:31:11 OBGyn Episode No OBEpisode recorded.
== END 2024-12-11 09:08 | disposition home or self-care (01) ==
PROVIDERS: PCP Physician Assistant; Visit Provider Physical Medicine & Rehabilitation
DX: M51.26 Other intervertebral disc displacement, lumbar region (principal); M70.61 Trochanteric bursitis, right hip
CPT/HCPCS: 99214

== ENCOUNTER → 2024-12-11 08:34 | Outpatient (BNVA) | payer MEDICARE, SELFPAY | PROVIDERS: PCP Physician Assistant; Visit Provider Physical Medicine & Rehabilitation | DX: M70.61 Trochanteric bursitis, right hip (principal); M51.26 Other intervertebral disc displacement, lumbar region | CPT/HCPCS: 99212 ==

== ENCOUNTER 2025-01-11 11:36 | Emergency (ER) | payer OTHER, SELFPAY ==
[2025-01-11] VITALS (7 sets, daily range): BP systolic 88–142; BP diastolic 36–88; PULSE 66–85; RESP 16–18; TEMP 36.2–36.9; O2SAT 95; BMI 15.1
--- NOTE | ~2025-01-11 | CT_ITS ---
EXAMINATION: CT HEAD WITHOUT CONTRAST CLINICAL INFORMATION: Dizziness, near syncope. COMPARISON: None available. TECHNIQUE: Contiguous axial imaging was performed from the skull base to vertex without intravenous administration of contrast. This CT examination was performed using dose optimization techniques as appropriate, variously including the following: *Automated exposure control *Adjustment of mA and/or kV according to patient size (this includes techniques or standardized protocols for targeted exams where dose is matched to indication/reason for exam; i.e. extremities or head) *Use of iterative reconstruction technique FINDINGS: There is no evidence of intracranial hemorrhage or extra-axial fluid collection. There is no mass effect, or edema. No CT evidence of acute territorial infarct. Ventricles, sulci, and cisterns are normal in size and configuration for patient age. No hydrocephalus. No midline shift. Negative hyperdense MCA sign. Negative insular ribbon sign. Patchy periventricular and deep white matter hypoattenuation is consistent with mild to moderate small vessel ischemic changes. Normal pituitary. Atheromatous calcification of the bilateral carotid siphons and V4 segments vertebral arteries bilaterally. Globes and orbital contents image normally. There are bilateral lens replacements. No extracranial soft tissue abnormalities. The paranasal sinuses, mastoid air cells, and tympanic cavities are normally aerated. No suspicious bony abnormalities. There are no acute fractures evident. CT/CT head/brain wo IV con IMPRESSION: No acute intracranial abnormality. Electronically signed by: Malcom Valle MD 01/11/2025 12:24 PM EDT RP
--- NOTE | 2025-01-11 12:00 | ECG_ITS ---
Test Reason : near syncope Blood Pressure : */* mmHG Vent. Rate : 72 BPM Atrial Rate : 72 BPM P-R Int : 120 ms QRS Dur : 78 ms QT Int : 404 ms P-R-T Axes : 36 39 42 degrees QTcB Int : 442 ms Normal sinus rhythm Normal ECG When compared with ECG of 28-Jul-2024 10:17, Premature atrial complexes are no longer Present Referred By: Teo Bradley Electronically Signed By: MILTON YOUSIF
--- NOTE | 2025-01-11 12:01 | ED_ITS ---
HPI - General Adult General Chief complaint: Dizziness Stated complaint: Low bp dizzy Time Seen by Provider: 01/11/25 20:10 History of Present Illness ED Provider: Serena HENDERSON narrative: The patient was at the hospital here today for physical therapy when she became dizzy and nauseated. She did not pass out. People thought she might be hypoglycemic and gave her orange juice. Her point of care checked after receiving the orange juice was 207. She was sent to the emergency room. The patient had investigations ordered at triage including a head CT, EKG, and lab work. There was a long wait for her to be seen. During this time her symptoms seemed to have resolved. At the time that I saw her she did not seem to have any ongoing symptoms. The patient was a very vague report her of her symptoms. As far as I can tell she became dizzy and nauseated and did not pass out. It does not seem that there was any checking of her blood sugar prior to the administration of orange juice. It does not seem that her symptoms were associated with any significant headache or chest pain or lateralizing weakness or difficulty speaking. The patient apparently was at physical therapy because of problems related to arthritis. She was feeling well earlier in the day before going to physical therapy. No fever, sweats, chills. No antecedent illness. Related Data Previous Rx's ?Medication ?Instructions ?Recorded acetaminophen 500 mg tablet 500 mg PO Q6H PRN fever or pain 06/17/22 (Tylenol Extra Strength) #14 tabs cyclobenzaprine 5 mg tablet 5 mg PO Q8H PRN pain (scale score 06/17/22 7-10) 5 days #14 tabs cefuroxime axetil 250 mg tablet 250 mg PO BID 7 days #14 tabs 07/28/24 diclofenac sodium 1 % topical gel 4 g topical QID PRN pain #100 grams 09/03/24 (Arthritis Pain (diclofenac)) sulfamethoxazole 800 1 tab PO BID #10 tabs 11/09/24 mg-trimethoprim 160 mg tablet lidocaine 5 % topical patch 1 patch topical DAILY PRN pain #30 12/11/24 (Lidoderm) ea Allergies Allergy/AdvReac Type Severity Reaction Status Date / Time Penicillins Allergy Unknown Unknown Verified 01/11/25 11:56 aspirin [ASA] Allergy Unknown Verified 01/11/25 11:56 Review of Systems 2 Review of Systems: Yes all other systems are reviewed and are negative [facility] Past Medical History Medical History Dementia Diabetes HTN (hypertension) Social History Social History Alcohol intake: never Patient Tobacco Use Status: Never used Tobacco Advance Directives: No Advance Directives Information Provided: Yes Current occupational status: disabled Physical Exam ED Vital Signs: Vital Signs - 24 hr 01/11/25 14:04 01/11/25 17:11 01/11/25 20:30 Temperature 98.1 F 98.4 F Pulse Rate 78 84 66 Respiratory Rate 18 16 Blood Pressure 141/58 H 142/88 H 111/36 L Pulse Oximetry 95 95 Oxygen Delivery Method Room Air Room Air 01/11/25 20:31 01/11/25 20:33 01/11/25 21:14 Temperature 98 F Pulse Rate 73 85 85 Respiratory Rate 16 Blood Pressure 88/41 L 122/55 L 122/55 L Pulse Oximetry 95 Oxygen Delivery Method Room Air BMI result Body Mass Index 15.1 Const Other: The patient is a somewhat frail looking 79-year-old who was awake and alert and does not seem acutely ill at the time that I interviewed her. [facility] Other: Face was symmetrical, mucous membranes moist Eyes Other: no nystagmus General: appearance normal, both eyes and all related structures Eyelids: Yes eyelids normal Conjunctivae: conjunctivae normal Sclerae: sclerae normal Pupils: Equal, round and reactive pupils present EOM: EOMs intact bilaterally Neck Neck: Yes normal visual inspection, Yes full ROM, Yes no lymphadenopathy and Yes no JVD Resp Effort & Inspection: normal respiratory effort Auscultation: clear to auscultation bilaterally Cardio Rate: regular rate Rhythm: regular rhythm Heart sounds: S1 normal heart sound present and S2 normal heart sound present GI Other: abdomen is soft and nontender Skin Other: skin is dry and unremarkable General skin exam: no rashes or lesions noted Neuro Other: the patient was awake, alert, oriented, appropriate. Cranial nerves are intact. She moves her extremities normally. Finger-nose is normal bilaterally. She was able to walk unassisted. She moves quite slowly and with some frailty but she did not seem unsteady.. She could get herself in and out of a chair. Cranial nerves: Yes Equal, round and reactive pupils present Extrem General: Yes no pedal edema and Yes no calf tenderness Course Course Course Narrative: RME: 79-year-old female history of diabetes presents to ED for near syncopal episode. Patient was in physical therapy and felt nauseous dizzy and felt like she was about to pass out. Patient fell week described as fatigue. Patient denies any loss of vision or paralysis of extremities. Patient denies any slurred speech or facial droop. In triage NIH score is 0. Patient was given orange juice for presumptive hypoglycemia due to patient having history of diabetes. POC ordered labs EKG head CT scan. Medical Decision Making Medical Decision Making MDM Narrative: The patient is an 79-year-old woman who was sent to the emergency room from physical therapy after she complained of feeling dizzy and nauseated. The patient is very vague about the details of the onset of the symptoms. Apparently it was thought that she might be hypoglycemic and so she was given orange juice before a point of care was checked which was 207. the patient has a history of diabetes but I am not certain what her medication regimen is. A head CT and labs has been ordered in triage including troponins. Also an EKG which is normal. Head CT is unremarkable. In any event the patient was observed in the emergency room for several hours prior to my evaluation and she seems quite well. She has negative troponins. She is ambulatory without assistance. She would like to go home and I think going home is reasonable. She should follow up with her PCP. Lab Data 01/11/25 12:31 01/11/25 12:31 Labs: Lab Results 01/11/25 01/11/25 01/11/25 Range/Units 12:25 12:31 14:03 WBC 11.2 H (4.8-10.8) X10*3/uL RBC 5.13 (4.20-5.50) X10*6/uL Hgb 14.7 (12.0-16.0) g/dl Hct 43.4 (37.0-47.0) % MCV 84.6 (80.0-98.0) fL MCH 28.7 (27.0-33.0) pg MCHC 33.9 (31.0-35.0) g/dl RDW 13.9 (11.0-16.0) % Plt Count 186 D (160-400) X10*3/uL MPV 12.0 (9.4-12.3) fL Immature Gran % (Auto) 0.6 H (0.0-0.4) % Neut % (Auto) 82.3 H (45-73) % Lymph % (Auto) 9.5 L (20-40) % Vigo % (Auto) 6.2 (2-11) % Eos % (Auto) 1.0 (0-4) % Baso % (Auto) 0.4 (0-2) % Lymph # (Auto) 1.1 L (1.2-4.9) X10*3/uL Vigo # (Auto) 0.7 (0.1-1.2) X10*3/uL Eos # (Auto) 0.1 (0.0-0.4) X10*3/uL Baso # (Auto) 0.1 (0.0-0.2) X10*3/uL Abs Immat Gran (auto) 0.07 H (0.00-0.03) X10*3/uL Absolute Neuts (auto) 9.2 H (2.0-8.3) x10*3/uL Absolute Nucleated RBC 0.000 (0.0-0.012) X10*3/uL Nucleated RBC % (auto) 0.0 (0.0-0.2) /100WBC PT 12.4 (10.9-12.4) SEC INR 1.1 (0.9-1.1) APTT 24.4 L (26.0-36.8) SEC Sodium 141 (135-145) mmol/L Potassium 4.3 (3.3-5.1) mmol/L Chloride 106 (96-108) mmol/L Carbon Dioxide 27 (22-29) mmol/L Anion Gap 12 (12-20) BUN 15 (9-16) mg/dL Creatinine 0.85 (0.5-1.4) mg/dL Estim Creat Clear Calc 27.8 Estimated GFR > 60 POC Glucose 181 H 197 H (60-115) mg/dL Random Glucose 196 H (60-115) mg/dL Calcium 9.2 (8.4-10.2) mg/dL Total Bilirubin 0.6 (0.0-1.0) mg/dL AST 22 (5-31) U/L ALT 24 (0-31) U/L Alkaline Phosphatase 68 (39-117) U/L Troponin I High Sens 7.9 (<3.5-17.0) ng/L Total Protein 6.9 (6.5-8.0) g/dL Albumin 4.2 (3.5-5.0) g/dL 01/11/25 01/11/25 Range/Units 19:51 20:28 WBC (4.8-10.8) X10*3/uL RBC (4.20-5.50) X10*6/uL Hgb (12.0-16.0) g/dl Hct (37.0-47.0) % MCV (80.0-98.0) fL MCH (27.0-33.0) pg MCHC (31.0-35.0) g/dl RDW (11.0-16.0) % Plt Count (160-400) X10*3/uL MPV (9.4-12.3) fL Immature Gran % (Auto) (0.0-0.4) % Neut % (Auto) (45-73) % Lymph % (Auto) (20-40) % Vigo % (Auto) (2-11) % Eos % (Auto) (0-4) % Baso % (Auto) (0-2) % Lymph # (Auto) (1.2-4.9) X10*3/uL Vigo # (Auto) (0.1-1.2) X10*3/uL Eos # (Auto) (0.0-0.4) X10*3/uL Baso # (Auto) (0.0-0.2) X10*3/uL Abs Immat Gran (auto) (0.00-0.03) X10*3/uL Absolute Neuts (auto) (2.0-8.3) x10*3/uL Absolute Nucleated RBC (0.0-0.012) X10*3/uL Nucleated RBC % (auto) (0.0-0.2) /100WBC PT (10.9-12.4) SEC INR (0.9-1.1) APTT (26.0-36.8) SEC Sodium (135-145) mmol/L Potassium (3.3-5.1) mmol/L Chloride (96-108) mmol/L Carbon Dioxide (22-29) mmol/L Anion Gap (12-20) BUN (9-16) mg/dL Creatinine (0.5-1.4) mg/dL Estim Creat Clear Calc Estimated GFR POC Glucose 69 (60-115) mg/dL Random Glucose (60-115) mg/dL Calcium (8.4-10.2) mg/dL Total Bilirubin (0.0-1.0) mg/dL AST (5-31) U/L ALT (0-31) U/L Alkaline Phosphatase (39-117) U/L Troponin I High Sens 7.5 (<3.5-17.0) ng/L Total Protein (6.5-8.0) g/dL Albumin (3.5-5.0) g/dL Independent Interpretation I performed an independent interpretation of an: EKG Interpretation: EKG at 12:16 showed normal sinus rhythm at 72 beats per minute. It was an unremarkable EKG. Discharge Plan Discharge Clinical Impression: Near syncope, Dizziness Patient Disposition: Home, Self-Care Additional Instructions: please eat a good meal when you get home. Continue your regular medications. Follow up soon with your regular doctor to discuss this episode further. Return to the emergency room if significantly worse. Prescriptions: No Action acetaminophen [Tylenol Extra Strength] 500 mg tablet 500 mg PO Q6H PRN (Reason: fever or pain) Qty: 14 0RF cyclobenzaprine 5 mg tablet 5 mg PO Q8H PRN (Reason: pain (scale score 7-10)) 5 Days Qty: 14 0RF cefuroxime axetil 250 mg tablet 250 mg PO BID 7 Days Qty: 14 0RF sulfamethoxazole-trimethoprim 800-160 mg tablet 1 tab PO BID Qty: 10 0RF diclofenac sodium [Arthritis Pain (diclofenac)] 1 % gel 4 g topical QID PRN (Reason: pain) Qty: 100 0RF Rx Instructions: apply to single knee lidocaine [Lidoderm] 5 % adhesive patch,medicated 1 patch topical DAILY MDD remove after 12 hours PRN (Reason: pain) Qty: 30 0RF Rx Instructions: leave on most painful area (right hip), on for 12 hours, off for next 12 hours Referrals: Wilfrido Matute PA-C [Physician [employer]] - (dizziness, near syncope) Interventions: ED Discharge Assessment Last Done: 01/11/25 21:14 Discharge Date/Time: 01/11/25 21:19 Print Language: Prydeinig
[2025-01-11 12:40] LABS: MANUAL DIFF FLAG NO
[2025-01-11 12:41] LABS: Basophils Absolute Auto 0.1 X10*3/uL (0.0-0.2); Basophils Percent Auto 0.4 % (0-2); Eosinophils Absolute Auto 0.1 X10*3/uL (0.0-0.4); Hematocrit 43.4 % (37.0-47.0); Hemoglobin 14.7 g/dl (12.0-16.0); Imm Gran Abs Auto 0.07 X10*3/uL (0.00-0.03); Imm Gran Pct Auto 0.6 % (0.0-0.4); Lymphocytes Absolute Auto 1.1 X10*3/uL (1.2-4.9); Lymphocytes Percent Auto 9.5 % (20-40); Mean Corpuscular HGB Conc 33.9 g/dl (31.0-35.0); Mean Corpuscular Hemoglobin 28.7 pg (27.0-33.0); Mean Corpuscular Volume 84.6 fL (80.0-98.0); Monocytes Absolute Auto 0.7 X10*3/uL (0.1-1.2); Monocytes Percent Auto 6.2 % (2-11); Neutrophils Absolute Auto 9.2 x10*3/uL (2.0-8.3); Neutrophils Percent Auto 82.3 % (45-73); Platelet Count 186 X10*3/uL (160-400); Red Blood Count 5.13 X10*6/uL (4.20-5.50); Red Cell Distribution Width 13.9 % (11.0-16.0); White Blood Count 11.2 X10*3/uL (4.8-10.8)
[2025-01-11 12:49] LABS: INTERNATIONAL NORM RATIO 1.1 (0.9-1.1); Prothrombin Time 12.4 SEC (10.9-12.4)
[2025-01-11 12:51] LABS: Partial Thromboplastin Time 24.4 SEC (26.0-36.8)
[2025-01-11 13:02] LABS: Alanine Aminotransferase 24 U/L (0-31); Albumin Level 4.2 g/dL (3.5-5.0); Alkaline Phosphatase 68 U/L (39-117); Anion Gap 12 (12-20); Aspartate Amino Transferase 22 U/L (5-31); Bilirubin Total 0.6 mg/dL (0.0-1.0); Blood Urea Nitrogen 15 mg/dL (9-16); Calcium 9.2 mg/dL (8.4-10.2); Carbon Dioxide 27 mmol/L (22-29); Chloride 106 mmol/L (96-108); Creatinine Clr Calc Pharmacy 27.8; Estimated Glomerular Filt Rate > 60; Glucose Random 196 mg/dL (60-115); Potassium 4.3 mmol/L (3.3-5.1); Sodium 141 mmol/L (135-145); Total Protein 6.9 g/dL (6.5-8.0)
[2025-01-11 13:08] LABS: Glucose, Whole Blood 181 mg/dL (60-115)
[2025-01-11 13:09] LABS: Troponin-I High Sensitivity 7.9 ng/L (<3.5-17.0)
--- NOTE | 2025-01-11 14:09 | PC.NURSE ---
repeatedly reminded to remain in [facility]. States she needs to go home because she's diabetic. POC Checked 197. Is steady on feet. No neuro deficits noted.
--- OUTSIDE RECORDS SUMMARY | 2025-01-11 14:10 | XMS_ITS | Clinical Summary ---
Author Organization [facility] Address [address] [place] [address] Care Team Providers Care Polysomnographic Technician Name Role Phone Unavailable Primary Care Provider [...] Most Recently Relevant to Health Maintenance Insurance [facility]
--- OUTSIDE RECORDS SUMMARY | 2025-01-11 14:10 | XMS_ITS | Data Portability ---
Author Organization [facility], [facility] Address [address] [place] [address] Assessment No assessment recorded. Plan of Treatment Reminders Order Date Submit Date Provider Last Modified By Organization Details Last Modified Time Details Appointments None recorded. Lab None recorded. Referral None recorded. Procedures None recorded. Surgeries None recorded. Imaging XR, knee, 4 or more view - 111 R KNEE 4V W/B. SPAN SPEAKING 2023 024 [facility], [address], [address], [place], [address], 4 10:22:06 Medication Orders None recorded. Patient TargetsNo targets recorded. Patient InstructionsNo instructions recorded. Reason for Referral None Reported. Problems Name Problem SNOMED Code Status Onset Date Resolution Date Notes Provider Name and Address Organization Details Recorded Time Pain of right knee joint [id number] Active [address], [facility] 09:27:27 Problem Notes None recorded. Procedures Surgical History Date Name Laterality Status Provider Name and Address Organization Details Recorded Time 01/28/2024 Sports Knee 4&1 completed Yordy Henson PA-C [address], [place], [address], [facility] 01/28/2024 13:30:46 Imaging Results None recorded. [...] Updated DateTime 01/28/2024 149.86 cm 25.4 kg/m2 72095.64 g ALYSSIA BENJAMIN [place] - [facility] 01/28/2024 09:34:56 Social History None recorded. Functional Status None recorded. Mental Status None recorded. Family History Nothing Reported. Medical History No medical history recorded. Gynecological HistoryNo gynecological history recorded. Obstetrics History GPAL:G 0 P 0 0 0 0 Past Encounters Encounter ID Performer Location Encounter Start Date Encounter Closed Date Diagnosis/Indication Diagnosis SNOMED-CT Code Diagnosis ICD10 Code Diagnosis Note [id number] [facility] [address] [place] [address] 01/28/2024 09:06:54 02/07/2024 10:22:06 Pain of right knee joint 5001478260 39049 M25.561 Osteoarthr itis of right knee joint 8114660788 65388 M17.11 Health Concerns Section Related Observation LastModified by Organization Detai ls LastModified Time None Recorded Concern Status LastModified by Organization Details LastModified Time None Recorded Advance Directives Directive None Recorded Payers Encounter Date Sequence Insurance Name Policy Number Policy Yañez Covered Member ID Yañez Member ID Guarantor Name 01/28/2024 1 [facility] - DOS ON OR AFTER 2023 - ONE CARE (MEDICARE REPLACEMENT/ADV ANTAGE - HMO) Zaida Geiger [id number] Zaida Geiger Notes Date Note Type Note Provider Name and Address Organization Details Recorded Time 01/28/2024 text/html I am seeing the patient today under the supervision of Dr. Martinez who was available but who did not see the patient. HPI:Patient is an 78-year-old female Citizen Of [place] speaking only who presents to the office today with her for right knee pain. [employer] services were used for this visit. Patient [...] us as scheduled. Yordy Henson PA-C [address], [place], [address], [facility] - [facility] 01/28/2024 13:31:11 OBGyn Episode No OBEpisode recorded.
--- OUTSIDE RECORDS SUMMARY | 2025-01-11 14:10 | XMS_ITS | Clinical Summary ---
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 Patient is 4' 11 1 Each 09/03/20 Active miscellaneous medical supply miscIndications:G ait instability by miscellaneous route once daily Supply: Shower handle Dx: Gait instability Length of need: lifetime 1 Each 09/03/20 Active blood pressure test kit-largeIndicati ons:Essential hypertension Use once daily to check BP. [employer] 1 Kit 01/01/20 23 Active clotrimazole (LOTRIMIN) 1 % creamIndications: Intertrigo Apply topically 2 (two) times daily 45 g 1 01/17/20 23 Active calcium-vitamin D3-vitamin K 500 mg-1,000 unit-40 mcg chewIndications:P ostmenopausal Chew and swallow 1 Tablet by mouth once daily 90 Tablet 1 12/19/19 24 Active blood sugar diagnostic (ONETOUCH VERIO TEST STRIPS) stripsIndications :Uncontrolled type 2 diabetes mellitus with hyperglycemia ([facility]) Use to test BG 1x/d UD DXE11.59 OneTouch Verio Test Strips 100 Each 11 01/30/20 24 Active lancets (ONETOUCH DELICA PLUS LANCET) 30 gaugeIndications: Uncontrolled type 2 diabetes mellitus with hyperglycemia ([facility]) Use to test BG 1x/d UD [id number] One Touch Delica Plus Lancet 30G 100 Each 11 01/30/20 24 Active blood-glucose meter (ONETOUCH VERIO REFLECT METER) monitoring kitIndications:Un controlled type 2 diabetes mellitus with hyperglycemia ([facility]) Use to test BG 1x/d UD DXE11.65 OneTouch Verio Reflect Meter 1 Each 02/27/20 24 Active MISCELLANEOUS MEDICAL SUPPLY MISCIndications:R ight leg pain,Gait instability,Pain of both hip joints by miscellaneous route daily Dx: right leg pain, pain in both hip[ joints, gait instability. LEWIS: 99, Supply: 4 wheel mobility scooter for adults with basket 1 Each 05/28/20 24 Active pen needle, diabetic (BD ULTRA-FINE RUBEN PEN NEEDLE) 32 gauge x 32 ndleIndications:U ncontrolled type 2 diabetes mellitus with hyperglycemia ([facility]) Use to inject insulin 1x/d UD DXE11.59 100 Each 11 07/23/20 24 Active hydrOXYzine HCL (ATARAX) 25 mg tabletIndications :Psychophysiologi dylon insomnia Take 1 Tablet by mouth nightly at bedtime as needed for anxiety or sleep 30 Tablet 1 08/26/20 24 Active amLODIPine (NORVASC) 10 mg tabletIndications :Essential hypertension Take 1 Tablet by mouth once daily 90 Tablet 1 09/29/20 24 Active atorvastatin (LIPITOR) 40 mg tabletIndications :Mixed hyperlipidemia Take 1 Tablet by mouth once daily 90 Tablet 1 09/29/20 24 Active gabapentin (NEURONTIN) 100 mg capsuleIndication s:Moderate episode of recurrent major depressive disorder (HCC-CMS) Take 1 Capsule by mouth nightly at bedtime 30 Capsule 5 09/29/20 24 Active insulin glargine (LANTUS SOLOSTAR U-100 INSULIN) 100 unit/mL (3 mL) penIndications:Un controlled type 2 diabetes mellitus with hyperglycemia ([facility]) ADMINISTER 26 UNITS UNDER THE SKIN EVERY MORNING 15 mL 1 09/29/20 24 Active melatonin 3 mg tabletIndications :Acute insomnia Take 1 Tablet by mouth nightly at bedtime as needed for sleep for sleep 30 Tablet 5 09/29/20 24 Active glipiZIDE XL (GLUCOTROL XL) 5 mg ER, 24 hour tabletIndications :Uncontrolled type 2 diabetes mellitus with hyperglycemia ([facility]) TAKE 1 TABLET BY MOUTH EVERY DAY 90 Tablet 10/12/20 24 Active JARDIANCE 25 mg tabIndications:Un controlled type 2 diabetes mellitus with hyperglycemia ([facility]) TAKE 1 TABLET BY MOUTH DAILY 90 Tablet 1 12/03/19 25 Active sertraline (ZOLOFT) 50 mg tablet TAKE 1/2 TABLET BY MOUTH DAILY FOR 2 WEEKS. THEN IF TOLERATED INCREASE TO 1 TABLET Authorized by: AGGIE SHEA 11/27/19 25 Active lidocaine (LIDODERM) 5 % patchIndications: Sciatica of right side,Pain of both hip joints Place 1 Patch onto the skin once daily (every 24 hours) 30 Patch 06/08/20 22 025 Discontin ued(Outda tati-Remov ed from Med List (E-Cancel Not Sent)) diclofenac sodium (VOLTAREN) 1 % gel 06/17/2022 DICLOFENAC 1% GEL 100GM 100.00 g 0 7 APPLY TOPICALLY TWICE DAILY NEEDED Authorized by: LUDMILA MORA 06/17/20 22 025 Discontin ued(Outda tati-Remov ed from Med List (E-Cancel Not Sent)) Active Problems Problem Noted Date Diagnosed Date [...] Encounters Date Type Department Care Team Description 12/24/2024 2:00 PM EDT Office Visit [address] [phone] Gabe Vera, PharmD Uncontrolled type 2 diabetes mellitus with hyperglycemia (HCC-CMS) (Primary Dx); Essential hypertension 10/22/2024 2:00 PM EST Office Visit [address] [phone] Gabe Vera, PharmD Uncontrolled type 2 diabetes mellitus with hyperglycemia ([facility]) (Primary Dx); Essential hypertension 10/22/2024 Travel from Last 3 Months Immunizations Immunization Administration Dates Next Due Flu, Adjuvant, 65y+ [...] Sign Reading Time Taken Comments Blood Pressure 130/60 12/24/2024 2:05 PM EDT Pulse 82 12/24/2024 2:05 PM EDT Temperature 36.7 ??C (98.1 ??F) 12/24/2024 2:05 PM ED T Respiratory Rate 18 12/24/2024 2:05 PM EDT Oxygen Saturation 96% 12/24/2024 2:05 PM EDT Inhaled Oxygen Concentration - - Weight 56.2 kg (124 lb) 12/24/2024 2:05 PM EDT Height 144.8 cm (4' 9 ) 12/24/2024 2:05 PM EDT Body Mass Index 26.83 12/24/2024 2:05 PM EDT Plan of Treatment Upcoming Encounters Date Type Department Care Team (Late st Contact Info) Description 02/04/2025 1:20 PM EDT Office Visit [address] [phone] Gabe Vera, PharmD [address] [place] [address] 02/09/2025 11:20 AM EDT Office Visit [address] [phone] Wilfrido Matute PA-C [address] [place] [address] Health Maintenance Due Date Last Done Comments Dental Examination 1945 Advanced Care Planning 1945 Retinopathy Screening 01[birth year]31/1958 Imm-Hepatitis B (3 of 3 - 19 + 3-dose series) 02/13/2024 12/19/2023, 08/04/2019 [id number] () 06/14/2024 021 Alcohol and Drug Screen 10/14/2024 09/29/20, 06/24/2024, 12/19/2023, Additional history exists Diabetes Foot Exam 12/18/2024 12/19/2023, 0 12/19/2023, 05/17/2022, Additional history exists Falls Prevention 12/18/2024 12/19/2023, , 03/28/2021, Additional history exists Lipid Screening 12/18/2024 12/19/2023, 10/14, 12/07/2020, Additional history exists Urine Albumin Creatinine Rat io Screening 12/18/2024 12/19/2023, 10/30/2022, 12/07/2020, Additional history exists Depression Monitoring 12/28/2024 09/29/2024 , 06/24/2024, 03/24/2024, Additional history exists Diabetes HbA1c 01/20/2025 10/22/2024, 07/14, 04/23/2024, Additional history exists Serum Creatinine 07/29/2025 07/29/2024, 04/2024, 10/24/2022, Additional history exists Tobacco Screening 12/24/2025 12/24/2024 Medicare Annual Wellness Visit 12/31/2025 0 12/31/2024, 12/19/2023, 12/19/2023, Additional history exists Imm-DTaP/Tdap/Td (2 - Td or Tdap) 12/12/2032 023 Imm-Pneumococcal 65+ Completed 05/17/2022, 08/04/2019, 10/16/2017 Imm-Zoster, Recombinant Completed 08/16/2022, 06/08 Bone Density Screening Completed , 02/05/2023, 02/05/2023 Imm-Influenza Completed 06/24/2024, 12/2021, 08/01/2020, Additional history exists Goals Goal Patient Goal Type Associated Problems Recent Progress Patient-Stated? Author Blood Pressure < 140/90 Blood Pressure Essential hypertension 130/60(12/24 2:05 PM EDT) No Antoine Conley, NathaliaD Hypertension: Decrease sodium intake General On track(2022 1:52 PM PDT) No Gabe Vera, Sharron HEMOGLOBIN A1C < 7.0 Result Component 8.2(10/22/19 2:57 PM EST) No Antoine Conley, Sharron Procedures Procedure Name Priority Date/Time Associated Diagnosis Comments ANNUAL WELLNESS VISIT SCANNED DOCUMENT 12/31/2024 3:00 AM EDT GLUCOSE, BLOOD BY GLUCOSE MONITORING DEVICE (CLIA WAIVED)POCT Routine 12/24/2024 2:06 PM EDT Uncontrolled type 2 diabetes mellitus with hyperglycemia ([facility]) REFERRAL TO ORTHOPEDICS Routine 12/11/2024 3:00 AM EST Lumbar pain Bilateral hip pain REFERRAL SCANNED DOCUMENT 11/13/2024 3:00 AM EST IMAGING SCANNED DOCUMENT 11/04/2024 3:00 AM EST IMAGING SCANNED DOCUMENT 11/04/2024 3:00 AM EST HGBA1C W/MPG Routine 10/22/2024 2:57 PM EST Uncontrolled type 2 diabetes mellitus with hyperglycemia ([facility]) GLUCOSE, BLOOD BY GLUCOSE MONITORING DEVICE (CLIA WAIVED)POCT Routine 10/22/2024 2:10 PM EST Uncontrolled type 2 diabetes mellitus with hyperglycemia (HCC-CMS) COMPREHENSIVE METABOLIC PANEL Routine 07/29/2024 3:13 PM [...] Recently Relevant to Health Maintenance Results * ANNUAL WELLNESS VISIT SCANNED DOCUMENT (12/31/2024 3:00 AM EDT) 12/31/2024 3:00 AM EDT Anthony Triplett MD SCAN OTHER ORDERS Final Resu lt * (ABNORMAL) GLUCOSE, BLOOD BY GLUCOSE MONITORING DEVICE (CLIA WAIVED)POCT (12/24/2024 2:06 PM EDT) Only the most recent of2 resultswithin the time period is included. GLUCOSE 153(A) 70 - 100 mg/dL [facility] POCT Capillary Blood Blood / Unknown 2:06 PM EDT Gabe Iqbal PharmD LAB - BLOOD D RAW Final Result [facility] POCT * REFERRAL TO ORTHOPEDICS (12/11/2024 3:00 AM EST) 12/11/2024 3:00 AM EST Wilfrido Matute PA-C REFERRAL Final Result * REFERRAL SCANNED DOCUMENT (11/13/2024 3:00 AM EST) 11/13/2024 3:00 AM EST us Wilfrido Matute PA-C SCAN REFERRAL Final Result * IMAGING SCANNED DOCUMENT (11/04/2024 3:00 AM EST) Only the most recent of2 resultswithin the time period is included. 11/04/2024 3:00 AM EST us Wilfrido Samaniegoo PA-C SCAN IMAGING Final Result * (ABNORMAL) HGBA1C W/MPG (10/22/2024 2:57 PM EST) HEMOGLOBIN A1C 8.2(H) <5.7 % of total Hgb [facility] Comment: For someone without known diabetes, a [...] ?? MEAN PLASMA GLUCOSE 215 mg/dL (calc) [facility] Blood Blood / Unknown 10/22/2024 2 :57 PM EST 10/22/2024 2:59 PM EST Narrative [facility] - 10/23/2024 9:13 AM EST FASTING:YES Gabe Iqbal PharmD LAB - BLOOD D RAW Final Result [facility] [address] [address], [facility] [address] [place] [address] * (ABNORMAL) COMPREHENSIVE METABOLIC PANEL (07/29/2024 3:13 PM EDT) GLUCOSE 181(H) 65 - 139 mg/dL [facility] Comment: ?Non-fasting reference interval UREA NITROGEN (BUN) 17 7 - 25 mg/dL [facility] CREATININE (blood) 0.88 0.60 - 0.95 mg/dL [facility] EGFR 66 > OR = 60 mL/min/1. 73m2 [facility] BUN/CREATININE RATIO SEE NOTE: [facility] Comment: ?? Not Reported: BUN and Creatinine are within ?? reference range. ? SODIUM 139 135 - 146 mmol/L [facility] POTASSIUM 4.0 3.5 - 5.3 mmol/L [facility] CHLORIDE 101 98 - 110 mmol/L [facility] CARBON DIOXIDE 29 20 - 32 mmol/L [facility] CALCIUM 9.6 8.6 - 10.4 mg/dL [facility] PROTEIN, TOTAL 6.7 6.1 - 8.1 g/dL [facility] ALBUMIN 4.0 3.6 - 5.1 g/dL [facility] GLOBULIN 2.7 1.9 - 3.7 g/dL (calc) [facility] ALBUMIN/GLOBULI N RATIO 1.5 1.0 - 2.5 (calc) [facility] BILIRUBIN, TOTAL 0.6 0.2 - 1.2 mg/dL [facility] ALKALINE PHOSPHATASE 59 37 - 153 U/L [facility] AST 14 10 - 35 U/L [facility] ALT 14 6 - 29 U/L [facility] Blood Blood / Unknown 07/29/2024 3 :13 PM EDT 07/29/2024 3:14 PM EDT Narrative [facility] - 07/30/2024 6:02 AM EDT FASTING:NO us Wilfrido Matute PA-C LAB - BLOOD DRAW Final Resul t [facility] [address] [address], [facility] [address] [place] [address] * (ABNORMAL) MICROALBUMIN/CREATININE RATIO, URINE, RANDOM (12/19/2023 11:06 AM EST) CREATININE, RANDOM URINE 67 20 - 275 mg/dL [facility] MICROALBUMIN 4.0 mg/dL [facility] Comment: Reference Range Not established MICROALBUMIN/CREA TININE RATIO, RANDOM URINE 60(H) <30 mcg/mg creat [facility] Comment: The ADA defines abnormalities in albumin [...] AM EST 12/19/2023 11:07 AM EST Narrative [facility] - 12/20/2023 6:17 PM EST FASTING:NO PATIENT UNABLE TO VOID; ADVISED TO RETURN FOR COLLECTION. Wilfrido Matute PA-C LAB - NO BLOOD DRAW Final Re sult [facility] [address] [place] [address], [facility] [address] [place] [phone] * (ABNORMAL) LIPID PANEL (12/19/2023 11:06 AM EST) CHOLESTEROL, TOTAL 239(H) <200 mg/dL [facility] HDL CHOLESTEROL 39(L) > OR = 50 mg/dL [facility] TRIGLYCERIDES 417(H) <150 mg/dL [facility] Comment: If a non-fasting specimen was collected, consider repeat triglyceride testing on a fasting specimen if clinically indicated. Miriam et al. J. of Clin. Lipidol. 2015;9:129-169. LDL-CHOLESTEROL See Note [employer] Comment: LDL cholesterol not calculated. Triglyceride levels greater than 400 mg/dL invalidate calculated LDL results. Reference range: <100 Desirable range <100 mg/dL for primary prevention; ?? <70 mg/dL for patients with CHD or diabetic patients with > or = 2 CHD risk factors. LDL-C is now calculated using the Ambar calculation, which is a validated novel method providing better accuracy than the Friedewald equation in the estimation of LDL-C. Wily COOK et al. RAHEEL. 2013;310(19): 2811-4889 (http://education.[employer]/faq/GPM084) CHOL/HDLC RATIO 6.1(H) <5.0 (calc) [facility] NON-HDL CHOLESTEROL 200(H) <130 mg/dL (calc) [facility] Comment: For patients with diabetes plus 1 major ASCVD risk factor, treating to a non-HDL-C goal of <100 mg/dL (LDL-C of <70 mg/dL) is considered a therapeutic option. Blood Blood / Unknown 12/19/2023 1 1:06 AM EST 12/19/2023 11:07 AM EST Narrative [facility] - 12/20/2023 6:17 PM EST FASTING:NO PATIENT UNABLE TO VOID; ADVISED TO RETURN FOR COLLECTION. us Wilfrido Matute PA-C LAB - BLOOD DRAW Final Resul t [facility] [address] [place] [address], [facility] [address] [place] [id number] * DXA BONE DENSITY STUDY 1/> SITES AXIAL SKEL (02/05/2023 3:00 AM EDT) 02/05/2023 3:00 AM EDT us Wilfrido Matute PA-C IMG DXA Edited Resul t - Final from Last 3 Months or Most Recently Relevant to Health Maintenance Insurance [facility] Member Subscriber Plan / Payer (Ef fective 2023-Present) Name:Juanjo Zaida Relation to Subscriber:Self Name:Geiger Zaida Payer ID:[id number] Group ID:Not on file Type:Indemnity Address: [place] [address] [place] [address] Care Teams Production Cloth 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
[2025-01-11 14:15] LABS: Glucose, Whole Blood 197 mg/dL (60-115)
[2025-01-11 20:20] LABS: Troponin-I High Sensitivity 7.5 ng/L (<3.5-17.0)
[2025-01-11 21:22] LABS: Glucose, Whole Blood 69 mg/dL (60-115)
== END 2025-01-11 21:19 | disposition home or self-care (01) ==
PROVIDERS: Physician Assistant; Emergency Provider Emergency Medicine
DX: R55 Syncope and collapse (principal); R42 Dizziness and giddiness; I95.9 Hypotension, unspecified; R11.0 Nausea; Z79.899 Other long term (current) drug therapy
CPT/HCPCS: 36415; 70450; 80053; 82947; 84484; 85025; 85610; 85730; 93005; 99283; 99284

== ENCOUNTER → 2025-01-11 12:00 | Outpatient (BNV) | payer MEDICARE, SELFPAY | PROVIDERS: Visit Provider Internal Medicine | DX: R55 Syncope and collapse (principal) | CPT/HCPCS: 93010 ==

== ENCOUNTER → 2025-01-11 12:00 | Outpatient (BNV) | payer MEDICARE, SELFPAY | PROVIDERS: Visit Provider Radiology Diagnostic Radiology | DX: R42 Dizziness and giddiness (principal); R55 Syncope and collapse | CPT/HCPCS: 70450 ==

== ENCOUNTER 2025-01-27 11:34 | Outpatient (RCR) | payer OTHER, SELFPAY ==
--- NOTE | 2024-12-23 12:21 | MHC.PT.EP ---
[facility] [place] [facility] [place] [facility] [address] [phone] F: [phone] F: [phone] F: [phone] F: [phone] Physical Therapy Plan of Care Date of Evaluation: 12/23/24 Date of Surgery: Diagnosis: trochanteric bursitis, R hip other intervertebral disc displacement, lumbar region Assessment: 79 y/o very pleasant and forgetful female referred to PT with R trochanteric bursitis and lumbar region intervertebral disc displacement. Pt is a poor historian reporting memory issues. S/s consistent with lumbar derangement and gluteal tendinopathy resulting in pain with walking, standing, getting in/out of bed, and getting up/down from chair. Examination shows limited R hip mobility, tenderness to palpation R gluteal muscles, decreased strength and impaired gait pattern. Recommend PT 2x/week for 4 weeks to address impairments, implement HEP and optimize functional mobility Frequency and Duration: The patient will be seen 2x/week for 5 weeks Short Term Goals: 3 weeks I with HEP Improve R hip flexion to 110 Trimming Cutter Machine Goals: 5 weeks I with HEP and self management of sx Pt will be able to walk > 15 min with pain < 3/10 Pt will be able to ascend and descend stairs with one rail and pain < 3/10 Treatment Plan: Modalities to reduce pain, spasms and effusion. Manual therapy to restore motion and function. Therapeutic exercise to improve strength and flexibility. Neuromuscular re-education for posture and balance. Therapeutic activities to return to functional activities of daily living. Electronically signed by: Susan Hyman PT Please sign and return to therapist. Thank you for your referral.
--- NOTE | 2025-02-12 08:45 | MHC.PT.DC ---
[facility] [place] Office [place] Office [place] Office [address] Jose [address] [phone] F: [phone] F: [phone] F: [phone] F: [phone] Physical Therapy Discharge Report Diagnosis: trochanteric bursitis, R hip other intervertebral disc displacement, lumbar region Date of Surgery: Date of Evaluation: 12/23/24 Date of Discharge: 02/12/25 Treatments to Date: 9 Cancellations to Date: 1 No Shows to Date: 0 Discharge Status: Independent with HEP Discharge Summary: Si appears WNL today and focused on exercises. Reviewed HEP however questionable carryover secondary to dementia and pt needing cues throughout session to stay on task. Her gait pattern has greatly improved with improved symmetry and able to perform step ups without trendelenburg. Throughout session, pt will start to perform exercise correctly and then after 2 reps will move faster and with larger movements or just completely change the exercise performingn forward folds, ballet moves, and yoga moves. At this time, d/c to I HEP and she has f/u with ortho in a month. Electronically signed by: Susan Hyman PT Please sign and return to therapist. Thank you for your referral.
== END 2025-02-12 08:45 | disposition home or self-care (01) ==
LOC: HO.PT 11:34
PROVIDERS: PCP Physician Assistant; Visit Provider Physical Medicine & Rehabilitation
DX: M70.61 Trochanteric bursitis, right hip (principal); M51.26 Other intervertebral disc displacement, lumbar region
CPT/HCPCS: 97110; 97140; 97162

== ENCOUNTER 2025-03-30 10:01 | Outpatient (AMB) | payer OTHER, SELFPAY ==
--- NOTE | 2025-03-30 10:06 | A.OFFVIS_ITS ---
Vital Signs 03/30/25 10:09 Height 4 ft 11 in Weight 126 lb BMI 25.4 Intake Visit Reasons: F/U RT hip and Lumbar Intake Note: Zaida is a 80 year old female who presents today as a follow up of the Right hip and lumber pain. At last visit patient was advised to try topical medication and lidocaine patch to help with the pain. Patient was also referred to physical therapy and was discharged on 03/07. Patient states that physical therapy did not help, that it made her hip feel worse.She states that the pain is radiating from her right hip down to her leg.Patient stressed her concern that her daily activities are being interrupted due to the pain and that her sleep is being affected. Workplace Relations Adviser Required: Yes Workplace Relations Adviser Services: Workplace Relations Adviser Offered & Declined Workplace Relations Adviser Name: Pablito - family friend Allergies Penicillins Allergy (Unknown, Verified 03/30/25 10:14) Unknown aspirin [ASA] Allergy (Verified 03/30/25 10:14) Unknown Medication List - Last Reconciled 03/30/25 by Yvette Pedro MD acetaminophen (Tylenol Extra Strength) 500 mg PO Q6H PRN cyclobenzaprine 5 mg PO Q8H PRN 5 days diclofenac sodium 1% (Arthritis Pain (diclofenac)) 4 grams topical QID PRN lidocaine 5% (Lidoderm) 1 patch topical DAILY PRN MDD remove after 12 hours HPI Comments Details: Patient was initially seen by me on 05/19/2024 presenting with left-sided radiculitis symptoms. MRI was ordered. However MRI was not done until 11/04/2024. Images reviewed by me and shows significant disc herniation left-sided L3-4, Modic changes, and spondylosis resulting in spinal stenosis L4-5. Patient also seen by pain management last August complaining of left knee pain. Referred to physical therapy. Also diagnosed formally with Alzheimers recently. They report poorly controlled diabetes. On last visit, patient insisted complaint of right-sided pain. We tried topical medications and heating pad. She has gone to physical therapy twice a week, total of 8 sessions, with some relief. [facility] Medical History Dementia Diabetes HTN (hypertension) Social History Alcohol intake: never Patient Tobacco Use Status: Never used Tobacco Current occupational status: disabled Physical Exam Vital Signs: BMI result Body Mass Index 25.4 Constitutional: Patient appears to be in no acute distress, well nourished and well developed. Patient was appropriately conversant and oriented. MSK: No specific abnormalities found on inspection of the spine and all extremities. Tender right SI joint, right greater trochanter, right buttocks. Bilateral knees did not show any effusion, redness, warmth. Able to stand and walk without antalgia or obvious weakness. Results Reviewed Results Reviewed: Independently reviewed lumbar MRI images: Shows significant disc herniation left L3-4, Modic changes L3-4, L4-5 central stenosis from spondylosis. Ordering Physician: Inge Bernal NP Date of Service: 11/06/24 Procedure(s): XR hip RT w PEL 1V Accession Number(s): [id number] cc: Inge Bernal NP~ EXAMINATION: XR HIP, RIGHT CLINICAL INFORMATION: pain 1 week COMPARISON: Left hip radiographs 07/28/2024. TECHNIQUE: AP pelvis, and 2 views of the right hip. FINDINGS: Normal bone mineralization. No definite fracture, dislocation, or suspicious bone lesion. Mild osteophytic changes of both hip joints symmetrically. There are gluteal enthesophytes involving the greater trochanters and iliac wings. There are arthritic changes in the lower lumbar spine. The sacrum is intact. The SI joints appear normal. Soft tissues demonstrate vascular calcifications. XR/XR hip RT w PEL 1V IMPRESSION: No fracture or acute bony abnormalities. No significant change from 07/28/2024. Electronically signed by: Malcom Valle MD 11/06/2024 01:06 PM [facility] Ordering Physician: Yvette Salguero Date of Service: 11/04/24 Procedure(s): MR lumbar spine wo con Accession Number(s): [id number] cc: Wilfrido Mautte PA-C; Yvette Salguero~ CLINICAL HISTORY: M54.16 - Radiculopathy, lumbar region MR lumbar spine without gadolinium Comparison: None Findings: Multilevel disc dehydration. Aqoofnfd-he-aiaxak disc narrowing noted at several levels. L2 vertebral body hemangioma. Anrk-sf-qokwmqgc Modic type 1 changes at L3/L4. No evidence of marrow infiltration. Normal alignment without acute fracture. Conus terminates at T12/L1. Unremarkable appearance of the visualized cord and conus medullaris. L5/S1: Mild disc bulge and bilateral facet hypertrophy associated with mild right lateral recess and bilateral neural foraminal compromise. Up to 5 mm (AP dimension) right anterior zone disc-osteophyte. L4/L5: Up to 3 mm (AP dimension) disc bulge and facet/ligamentum flava hypertrophy associated with severe bilateral lateral recess stenosis and moderate central canal compromise (midsagittal dimension of the thecal sac measures 7 mm). Odii-xy-gyzecade right and mild left neural foraminal stenosis. L3/L4: Left-sided disc herniation (with a superiorly migrating component -to the infrapedicular L3 level- from the left central to left neural foraminal zones) along with facet/ligamentum flava hypertrophy associated with severe bilateral lateral recess, severe central canal (midsagittal dimension of the thecal sac measures 4 mm), as well as severe left and mild right neural foraminal compromise. Small focus/foci of susceptibility artifact in the vicinity of the superior aspect of the herniated disc (posterior to the L3 vertebral body) may be due to vacuum disc phenomena. L2/L3: Disc bulge and facet/ligamentum flava hypertrophy associated with ewpd-yp-tzoxeazs bilateral lateral recess and central canal compromise , as well as mild bilateral neural foraminal stenosis. T12/L1 and L1/L2: No evidence of significant central canal or neural foraminal stenosis. Bilateral renal cyst/cystic appearing lesions could be further evaluated with ultrasound. A few small uterine fibroids. Colonic diverticulosis. IMPRESSION: L3/L4: Left-sided disc herniation (with a superiorly migrating component -to the infrapedicular L3 level- from the left central to left neural foraminal zones) along with facet/ligamentum flava hypertrophy associated with severe bilateral lateral recess, severe central canal (midsagittal dimension of the thecal sac measures 4 mm), as well as severe left neural foraminal compromise. L4/L5: Up to 3 mm (AP dimension) disc bulge and facet/ligamentum flava hypertrophy associated with severe bilateral lateral recess stenosis and moderate central canal compromise (midsagittal dimension of the thecal sac measures 7 mm). Zwda-iq-rcfbnlva right neural foraminal stenosis. This document has been electronically signed by: Aggie Gutiérrez MD on 11/04/2024 10:58:40 Assessment & Plan Assessment & Plan (1) Lumbar spinal stenosis: Code(s): M48.061 - Spinal stenosis, lumbar region without neurogenic claudication Category: Medical Qualifiers: Neurogenic claudication status: with neurogenic claudication Qualified Code(s): M48.062 - Spinal stenosis, lumbar region with neurogenic claudication (2) Lumbar disc herniation: Code(s): M51.26 - Other intervertebral disc displacement, lumbar region Category: Medical Plan Continues to have right-sided back pain. Poor historian. They are amenable to trying epidural injection. Note that she is diabetic. Referring back to pain management for epidural injection. Assessment and plan discussed with patient, and patient was agreeable. All questions were answered thoroughly. Yvette Pedro MD, ANTOINE Board Certified, [place] Board [employer] and Rehabilitation (ABPMR) Board Certified, [place] Board [employer] Electrodiagnostic Medicine (ABEM) Orders: Referrals Pain Management Referral M48.061 - Spinal stenosis, lumbar region without neurogenic claudication, M51.26 - Other intervertebral disc displacement, lumbar region Coding Level of Care Code Est Pt Level 4 (09979) Diagnoses Spinal stenosis of lumbar region with neurogenic claudication M48.062 Neurogenic claudication status: with neurogenic claudication Lumbar disc herniation M51.26
[2025-03-30 10:09] VITALS: BMI 25.4
--- OUTSIDE RECORDS SUMMARY | 2025-03-30 11:24 | XMS_ITS | Clinical Summary ---
Author Organization [facility] Address [address] [place] [address] Care Team Providers Care Loss Prevention Lead Name Role Phone Wilfrido Matute PA-C Primary Care Provider [phone] Source Comments PLEASE NOTE, if this patient [...] - documented on 08/11/19 Penicillins 12/26/2017 Medications alcohol swabsIndications: Uncontrolled type 2 diabetes mellitus with hyperglycemia ([facility]) Use to clean skin up to 2x/d PRN DXE11.59 100 Each 11 08/08/20 22 Active miscellaneous medical supply miscIndications:A t risk for falling,Gait instability by miscellaneous route once daily Dx: at risk for fall, gait instability, LEWIS: 99, Supply: cane. Patient is 4' 11 1 Each 09/03/20 22 Active miscellaneous medical supply miscIndications:G ait instability by miscellaneous route once daily Supply: Shower handle Dx: Gait instability Length of need: lifetime 1 Each 09/03/20 22 Active blood pressure test kit-largeIndicati ons:Essential hypertension Use once daily to check BP. [employer] 1 Kit 01/01/20 23 Active calcium-vitamin D3-vitamin K 500 mg-1,000 unit-40 mcg chewIndications:P ostmenopausal Chew and swallow 1 Tablet by mouth once daily 90 Tablet 1 12/19/19 24 Active MISCELLANEOUS MEDICAL SUPPLY MISCIndications:R ight leg pain,Gait instability,Pain of both hip joints by miscellaneous route daily Dx: right leg pain, pain in both hip[ joints, gait instability. LEWIS: 99, Supply: 4 wheel mobility scooter for adults with basket 1 Each 05/28/20 24 Active pen needle, diabetic (BD ULTRA-FINE RUBEN PEN NEEDLE) 32 gauge x ndleIndications:U ncontrolled type 2 diabetes mellitus with hyperglycemia (HCC-CMS) Use to inject insulin 1x/d UD DXE11.59 [...] s:Moderate episode of recurrent major depressive disorder ([facility]) Take 1 Capsule by mouth nightly at bedtime 30 Capsule 5 09/29/20 24 Active melatonin 3 mg tabletIndications :Acute insomnia Take 1 Tablet by mouth nightly at bedtime as needed for sleep for sleep 30 Tablet 5 09/29/20 24 Active JARDIANCE 25 mg tabIndications:Un controlled type 2 diabetes mellitus with hyperglycemia (HCC-CMS) TAKE 1 TABLET BY MOUTH DAILY 90 Tablet 1 12/03/19 25 Active sertraline (ZOLOFT) 50 mg tablet TAKE 1/2 TABLET BY MOUTH DAILY FOR 2 WEEKS. THEN IF TOLERATED INCREASE TO 1 TABLET Authorized by: AGGIE SHEA 11/27/19 25 Active blood-glucose meter (ONETOUCH VERIO REFLECT METER) monitoring kitIndications:Un controlled type 2 diabetes mellitus with hyperglycemia (HCC-CMS) Use to test BG 1x/d UD DXE11.65 OneTouch Verio Reflect Meter 1 Each 02/05/20 25 Active glipiZIDE XL (GLUCOTROL XL) 5 mg ER, 24 hour tabletIndications :Uncontrolled type 2 diabetes mellitus with hyperglycemia (HCC-CMS) Take 1 Tablet by mouth once daily 90 Tablet 1 02/05/20 25 Active insulin glargine (LANTUS SOLOSTAR U-100 INSULIN) 100 unit/mL (3 mL) penIndications:Un controlled type 2 diabetes mellitus with hyperglycemia (HCC-CMS) ADMINISTER 26 UNITS UNDER THE SKIN EVERY MORNING 15 mL 1 02/05/20 25 Active blood sugar diagnostic (ONETOUCH VERIO TEST STRIPS) stripsIndications :Uncontrolled type 2 diabetes mellitus with hyperglycemia (HCC-CMS) Use to test BG 1x/d UD DXE11.59 OneTouch Verio Test Strips 100 Each 11 02/05/20 25 Active lancets (ONETOUCH DELICA PLUS LANCET) 30 gaugeIndications: Uncontrolled type 2 diabetes mellitus with hyperglycemia (HCC-CMS) Use to test BG 1x/d UD [id number] One Touch Delica Plus Lancet 30G 100 Each 11 02/05/20 25 Active lidocaine (LIDODERM) 5 % patchIndications: Trochanteric bursitis, unspecified laterality Apply 1 patch to the affected area for a maximum of 12 hours, followed by removal for 12 hours. 15 Patch 3 02/10/20 25 Active MISCELLANEOUS MEDICAL SUPPLY MISCIndications:G ait instability by miscellaneous route daily Supply: rollator with seat Dx: gait instability, lumbar disc herniation, sciatica of right side Length of need: Lifetime. 1 Each 03/12/20 25 Active miscellaneous medical supply miscIndications:G ait instability by miscellaneous route once daily Supply: Walker with seat Dx: gait instability Length of need: Lifetime 1 Each 04/28/20 21 025 Discontin ued(Reord er (E-Cancel Not Sent)) Active Problems Problem Noted [...] Encounters Date Type Department Care Team Description 03/16/2025 Interim Notes [address] [phone] [place] 02/09/2025 11:20 AM EDT Office Visit [address] [phone] Wilfrido Matute PA-C Uncontrolled type 2 diabetes mellitus with hyperglycemia ([facility]) (Primary Dx); Trochanteric bursitis, unspecified laterality; Rectal prolapse 02/05/2025 Results Follow-Up [address] [address] Gabe Vera, PharmD GLUCOSE, BLOOD BY GLUCOSE MONITORING DEVICE (CLIA WAIVED)POCT, HGBA1C W/MPG, LIPID PANEL 02/04/2025 1:20 PM EDT Office Visit [address] [phone] Gabe Vera, PharmD Uncontrolled type 2 diabetes mellitus with hyperglycemia (HCC-CMS) (Primary Dx); Essential hypertension from Last 3 Months Immunizations Immunization Administration Dates Next Due Flu, Adjuvant, 65y+ (Fluad) 08/01/2020 Flu, High Dose, 65y+, Fluzon e High Dose 08/16/2022 Hep B, Adult/Adol (ENERGIX/RECOMBIVAX) 9 Hep B,adult,adjuvanted (HEPLISAV) 12/19/2023 Influenza (FLUZONE), high-do se, trivalent, PF 06/24/2024,07/28/2019 PFIZER COVID VACCINE, PURPLE CAP, 12+ 01/31/2021 PNEUMOCOCCAL CONJUGATE PCV 13 08/04/2019, 018 PNEUMOCOCCAL POLYSACCHARIDE PPV23 (Pneumovax 23) 05/17/2022,04/06/2021(Deferred: Out of Stock - patient left office) [...] Sign Reading Time Taken Comments Blood Pressure 120/72 02/09/2025 11:11 AM EDT Pulse 97 02/09/2025 11:11 AM EDT Temperature 36.8 ??C (98.3 ??F) 02/09/2025 11:11 AM E DT Respiratory Rate 18 02/09/2025 11:11 AM EDT Oxygen Saturation 98% 02/09/2025 11:11 AM EDT Inhaled Oxygen Concentration - - Weight 55.3 kg (122 lb) 02/09/2025 11:11 AM EDT Height 144.8 cm (4' 9 ) 02/09/2025 11:11 AM EDT Body Mass Index 26.4 02/09/2025 11:11 AM EDT Plan of Treatment Health Maintenance Due Date Last Done Comments Dental Examination 1945 Advanced Care Planning 1945 Retinopathy Screening 01/31/1958 Diabetes Foot Exam 12/18/2024 12/19/2023, 0 12/19/2023, 05/17/2022, Additional history exists Falls Prevention 12/18/2024 12/19/2023, , 03/28/2021, Additional history exists Urine Albumin Creatinine Ratio Screening 12/18/2024 12/19/2023, 10/30/2022, 12/07/2020, Additional history exists Depression Monitoring 05/11/2025 02/09/2025 , 09/29/2024, 06/24/2024, Additional history exists Crz-GEHGB-66 ( season) 2025 01/31/2021 Postponed from 06/14/2024 (Patient postponement) Imm-Hepatitis B (3 of 3 - 19+ 3-dose series) 05/11/2025 12/19/2023, 08/04/2019 Postponed from 02/13/2024 (Patient postponement) Serum Creatinine 07/29/2025 07/29/2024, 04/2024, 10/24/2022, Additional history exists Diabetes HbA1c 08/06/2025 02/04/2025, 06/2025, 07/23/2024, Additional history exists Medicare Annual Wellness Visit 12/31/2025 12/31/2024, 12/19/2023 Lipid Screening 02/04/2026 02/04/2025, 03/0 04/2024, 10/24/2022, Additional history exists Tobacco Screening 02/09/2026 02/09/2025 Imm-DTaP/Tdap/Td (2 - Td or Tdap) 12/12/2032 12/12/2022 Imm-Pneumococcal 65+ Completed 05/17/2022, 08/04/2019, 10/16/2017 Imm-Zoster, Recombinant Completed 08/16/2022, 06/08 Bone Density Screening Completed , 02/05/2023, 02/05/2023 Imm-Influenza Completed 06/24/2024, 1112/2021, 08/01/2020, Additional history exists Alcohol and Drug Screen Completed 02/10/20, 09/29/2024, 06/24/2024, Additional history exists Goals Goal Patient Goal Type Associated Problems Recent Progress Patient-Stated? Author Blood Pressure < 140/90 Blood Pressure Essential hypertension 120/72(02/09 11:11 AM EDT) No Antoine Conley PharmD Hypertension: Decrease sodium intake General On track(2022 1:52 PM PDT) No Gabe Vera PharmD HEMOGLOBIN A1C < 7.0 Result Component 7.5(02/05/20 1:58 PM EDT) No Antoine Conley PharmD Procedures Procedure Name Priority Date/Time Associated Diagnosis Comments LIPID PANEL Routine 02/04/2025 1:58 PM EDT Uncontrolled type 2 diabetes mellitus with hyperglycemia (HCC-CMS) HGBA1C W/MPG Routine 02/04/2025 1:58 PM EDT Uncontrolled type 2 diabetes mellitus with hyperglycemia (HCC-CMS) GLUCOSE, BLOOD BY GLUCOSE MONITORING DEVICE (CLIA WAIVED)POCT Routine 02/04/2025 1:24 PM EDT Uncontrolled type 2 diabetes mellitus with hyperglycemia (HCC-CMS) REFERRAL SCANNED DOCUMENT 01/05/2025 3:00 AM EDT ANNUAL WELLNESS VISIT SCANNED DOCUMENT 12/31/2024 3:00 AM EDT COMPREHENSIVE METABOLIC PANEL Routine 07/29/2024 3:13 PM EDT Preoperative clearance MICROALBUMIN/CREATINI NE RATIO, URINE, RANDOM Routine 12/19/2023 11:06 AM EST Uncontrolled type 2 diabetes mellitus with hyperglycemia (HCC-CMS) DXA BONE DENSITY STUDY 1/> SITES AXIAL SKEL Routine 02/05/2023 3:00 AM EDT Postmenopausal from Last 3 Months or Most Recently Relevant to Health Maintenance Results * (ABNORMAL) HGBA1C W/MPG (02/04/2025 1:58 PM EDT) HEMOGLOBIN A1C 7.5(H) <5.7 % [employer] Comment: For someone without known diabetes, a [...] diabetes for children. ?? MEAN PLASMA GLUCOSE 190 mg/dL (calc) [employer] Blood Blood / Unknown 02/04/2025 1 :58 PM EDT 02/04/2025 1:59 PM EDT Gabe Iqbal PharmD LAB - BLOOD D RAW Edited Result - Final [facility] [address] [address], [employer] [address] [place] [id number] * (ABNORMAL) LIPID PANEL (02/04/2025 1:58 PM EDT) Pathologist [facility] CHOLESTEROL, TOTAL 142 <200 mg/dL [employer] HDL CHOLESTEROL 45(L) > OR = 50 mg/dL [employer] TRIGLYCERIDES 223(H) <150 mg/dL [employer] Comment: If a non-fasting specimen was collected, consider repeat triglyceride testing on a fasting specimen if clinically indicated. Miriam et al. J. of Clin. Lipidol. 2015;9:129-169. LDL-CHOLESTEROL 69 99 mg/dL (calc) [employer] Comment: Reference range: <100 Desirable range <100 mg/dL for primary prevention; ?? <70 mg/dL for patients with CHD or diabetic patients with > or = 2 CHD risk factors. LDL-C is now calculated using the Ambar calculation, which is a validated novel method providing better accuracy than the Friedewald equation in the estimation of LDL-C. Wily COOK et al. RAHEEL. 2013;310(19): 9815-3030 (http://education.[employer].Jogg/faq/YTC690) CHOL/HDLC RATIO 3.2 <5.0 (calc) [employer] [facility] NON-HDL CHOLESTEROL 97 <130 mg/dL (calc) [employer] [facility] Comment: For patients with diabetes plus 1 major ASCVD risk factor, treating to a non-HDL-C goal of <100 mg/dL (LDL-C of <70 mg/dL) is considered a therapeutic option. Blood Blood / Unknown 02/04/2025 1 :58 PM EDT 02/04/2025 1:59 PM EDT Gabe Iqbal PharmD LAB - BLOOD D RAW Final Result Performing Organization Address City/[facility]/ZIP Co de Phone Number [employer] [address] [address], [employer] [address] [address] * GLUCOSE, BLOOD BY GLUCOSE MONITORING DEVICE (CLIA WAIVED)POCT (02/04/2025 1:24 PM EDT) GLUCOSE 88 70 - 100 mg/dL [facility] POCT Capillary Blood Blood / Unknown 1:24 PM EDT Gabe Iqbal PharmD LAB - BLOOD D RAW Final Result Performing Organization Address City/[facility]/ZIP Co de Phone Number [facility]- [facility] OFFICE POCT * REFERRAL SCANNED DOCUMENT (01/05/2025 3:00 AM EDT) 01/05/2025 3:00 AM EDT [facility] Provider Default SCAN REFERRAL Final Resu lt * ANNUAL WELLNESS VISIT SCANNED DOCUMENT (12/31/2024 3:00 AM EDT) 12/31/2024 3:00 AM EDT Anthony Triplett MD SCAN OTHER ORDERS Final Resu lt * (ABNORMAL) COMPREHENSIVE METABOLIC PANEL (07/29/2024 3:13 PM EDT) GLUCOSE 181(H) 65 - 139 mg/dL [employer] [facility] Comment: ?Non-fasting reference interval UREA NITROGEN (BUN) 17 7 - 25 mg/dL [employer] [facility] CREATININE (blood) 0.88 0.60 - 0.95 mg/dL [employer] [facility] EGFR 66 > OR = 60 mL/min/1. 73m2 [employer] [facility] BUN/CREATININE RATIO SEE NOTE: [employer] [facility] Comment: ?? Not Reported: BUN and Creatinine are within ?? reference range. ? SODIUM 139 135 - 146 mmol/L [employer] [facility] POTASSIUM 4.0 3.5 - 5.3 mmol/L [employer] [facility] CHLORIDE 101 98 - 110 mmol/L [employer] [facility] CARBON DIOXIDE 29 20 - 32 mmol/L [employer] [facility] CALCIUM 9.6 8.6 - 10.4 mg/dL [employer] [facility] PROTEIN, TOTAL 6.7 6.1 - 8.1 g/dL [employer] [facility] ALBUMIN 4.0 3.6 - 5.1 g/dL [employer] [facility] GLOBULIN 2.7 1.9 - 3.7 g/dL (calc) [employer] [facility] ALBUMIN/GLOBULI N RATIO 1.5 1.0 - 2.5 (calc) [employer] [facility] BILIRUBIN, TOTAL 0.6 0.2 - 1.2 mg/dL [employer] [facility] ALKALINE PHOSPHATASE 59 37 - 153 U/L [employer] [facility] AST 14 10 - 35 U/L [employer] [facility] ALT 14 6 - 29 U/L [employer] [facility] Blood Blood / Unknown 07/29/2024 3 :13 PM EDT 07/29/2024 3:14 PM EDT [employer] [facility] - 07/30/2024 6:02 AM EDT FASTING:NO Wilfrido Matute PA-C LAB - BLOOD DRAW Final Resul t [employer] [facility] [address] [address], [employer] [facility] [address] [place] [address] * (ABNORMAL) MICROALBUMIN/CREATININE RATIO, URINE, RANDOM (12/19/2023 11:06 AM EST) CREATININE, RANDOM URINE 67 20 - 275 mg/dL [employer] [facility] MICROALBUMIN 4.0 mg/dL [email or web address] [facility] Comment: Reference Range Not established MICROALBUMIN/CREA TININE RATIO, RANDOM URINE 60(H) <30 mcg/mg creat [employer] ([employer] [facility] Comment: The ADA defines abnormalities in [...] AM EST 12/19/2023 11:07 AM EST [employer] [facility] - 12/20/2023 6:17 PM EST FASTING:NO PATIENT UNABLE TO VOID; ADVISED TO RETURN FOR COLLECTION. us Wilfrido Matute PA-C LAB URINE AMBULATORY Final R esult [employer] [facility] [address] [address], [employer] [address] [phone] * DXA BONE DENSITY STUDY 1/> SITES AXIAL SKEL (02/05/2023 3:00 AM EDT) 02/05/2023 3:00 AM EDT us Wilfrido Matute PA-C IMG DXA Edited Resul t - Final from Last 3 Months or Most Recently Relevant to Health Maintenance Insurance [facility] [place] [id number] Care Teams Loss Prevention Lead Relationship Specialty Start Date End Date Wilfrido Matute PA-C [address] [place] [address] PCP - General 03/23/22
== END 2025-03-30 10:34 | disposition home or self-care (01) ==
LOC: HO.HOS 10:03
PROVIDERS: PCP Physician Assistant; Visit Provider Physical Medicine & Rehabilitation
DX: M48.062 Spinal stenosis, lumbar region with neurogenic claudication (principal); M51.26 Other intervertebral disc displacement, lumbar region
CPT/HCPCS: 99214

== ENCOUNTER → 2025-03-30 10:01 | Outpatient (BNVA) | payer OTHER, SELFPAY | PROVIDERS: PCP Physician Assistant; Visit Provider Physical Medicine & Rehabilitation | DX: M48.062 Spinal stenosis, lumbar region with neurogenic claudication (principal); M51.26 Other intervertebral disc displacement, lumbar region | CPT/HCPCS: 99212 ==

== ENCOUNTER 2025-04-23 10:02 | Outpatient (AMB) | payer OTHER, SELFPAY ==
--- NOTE | 2025-04-23 10:14 | MHC.OFFVIS ---
Vital Signs 04/23/25 10:18 Height 4 ft 11 in Weight 123 lb 4 oz BMI 24.9 BP 134/62 Blood Pressure Location Lt brachial Position Sitting Pulse 77 Intake Visit Reasons: rectal bleeding Intake Note: Patient is seen in office for evaluation of rectal bleeding. Pt c/o: onset for 3 months, has been ER due to this issues, blood in the stool and bowl, denies n/v/d/c, no pain in the area, states she is currently not bleeding [employer] Wheel [employer] Required: Yes Emery Wheel Molder Language: Psychiatric Lpn Services: Emery Wheel [employer] Present Emery Wheel Molder Name: Claudia SEXTON Information Interpreted: non-clinical & clinical Accompanied by: Family/Other Allergies Penicillins Allergy (Unknown, Verified 04/23/25 10:17) Unknown aspirin (ASA) Allergy (Verified 04/23/25 10:17) Unknown Medication List - Last Reconciled 04/23/25 by Daniel Webb MD acetaminophen (Tylenol Extra Strength) 500 mg PO Q6H PRN cyclobenzaprine 5 mg PO Q8H PRN 5 days diclofenac sodium 1% (Arthritis Pain (diclofenac)) 4 grams topical QID PRN lidocaine 5% (Lidoderm) 1 patch topical DAILY PRN MDD remove after 12 hours HPI HPI rectal bleeding: Details: [age] year old female referred for passage of bright blood per rectum. She apparently had been seen in the ER few months ago because of this. She says that she really does not have this problem anymore. She does admit to having some straining bowel movements and she says she does this frequently She says what bothers her more is her right hip pain after she had fallen last week. She denies any problems with oral intake. [facility] Medical History (Updated 04/23/25 @ 10:29 by Daniel Webb MD) Rectal mucosa prolapse Dementia Diabetes HTN (hypertension) Social History Alcohol intake: never Patient Tobacco Use Status: Never used Tobacco Current occupational status: disabled Review of Systems Const Denies chills and Denies fever(s) Card Denies chest pain, Denies dyspnea and Denies dyspnea on exertion Resp Denies cough, Denies dyspnea and Denies dyspnea on exertion GI Reports hematochezia and Denies change in bowel habits Denies hematuria Musc Denies back pain and Denies limited range of motion Neuro Denies focal weakness and Denies convulsions Psych Denies depression and Denies mood swings Physical Exam Vital Signs: Last Vital Signs Pulse 77 04/23/25 10:18 BP 134/62 04/23/25 10:18 BMI result Body Mass Index 24.9 Const General: comfortable and no acute distress Orientation/consciousness: patient oriented x3 Neck Neck: Yes no lymphadenopathy Resp Auscultation: clear to auscultation bilaterally Cardio Rhythm: regular rhythm GI Other: Rectal exam shows mucosal prolapse circumferentially Palpation (GI): Soft to palpation, nontender and no guarding Neuro General: patient oriented x3 Office Procedures Anoscopy She was in kneeling lakia-knife position. The anoscope was gently inserted. A full examination of the anal canal was done. She had some internal hemorrhoids. There were no lesions or any ulcers. No fissure. There was no induration on digital exam. She did have some mucosal prolapse seen circumferentially. [id number] Assessment & Plan Assessment & Plan (1) Rectal mucosa prolapse: Code(s): K62.3 - Rectal prolapse Category: Medical Plan: She has some mild mucosal prolapse my explain her passage of blood per rectum. She does state that she no longer has this bleeding problem. She does admit to frequent straining with bowel movements. I am going to prescribe her Metamucil to help with this as I told her that healing and constipation can worsen her prolapse I explained to her that she can see me in the office down the line again if she has worsening problems Her was with her during the visit. They were comfortable with the plan. Coding Level of Care Code New Pt Level 3 (95521) Diagnoses Rectal mucosa prolapse K62.3 CPT Codes Details - CPT: 14299-Nouoncgc ([id number])
[2025-04-23 10:18] VITALS: BP 134/62; PULSE 77; BMI 24.9
--- OUTSIDE RECORDS SUMMARY | 2025-04-23 10:27 | XMS_ITS | Data Portability ---
Author Organization [facility], [facility] Address [address] [place] [address] Assessment No assessment recorded. Plan of Treatment Reminders Order Date Submit Date Provider Last Modified By Organization Details Last Modified Time Details Appointments None recorded. Lab None recorded. Referral None recorded. Procedures None recorded. Surgeries None recorded. Imaging XR, knee, 4 or more view - 111 R KNEE 4V W/B. SPAN SPEAKING 2023 024 vikas [facility], [address], [address], [place], [address], 4 10:22:06 Medication Orders None recorded. Patient TargetsNo targets recorded. Patient InstructionsNo instructions recorded. Reason for Referral None Reported. Problems Name Problem SNOMED Code Status Onset Date Resolution Date Notes Provider Name and Address Organization Details Recorded Time Pain of right knee joint [id number] Active [address], [facility] [employer] [facility] 4 09:27:27 Problem Notes None recorded. Procedures Surgical History Date Name Laterality Status Provider Name and Address Organization Details Recorded Time 01/28/2024 Sports Knee 4&1 completed Yordy Henson PA-C [address], [place], [address], [facility] 01/28/2024 13:30:46 Imaging Results None recorded. [...] Updated DateTime 01/28/2024 149.86 cm 25.4 kg/m2 71632.64 g ALYSSIA BENJAMIN [place] - [place] [facility] 01/28/2024 09:34:56 Social History None recorded. Functional Status None recorded. Mental Status None recorded. Family History Nothing Reported. Medical History No medical history recorded. Gynecological HistoryNo gynecological history recorded. Obstetrics History GPAL:G 0 P 0 0 0 0 Past Encounters Encounter ID Performer Location Encounter Start Date Encounter Closed Date Diagnosis/Indication Diagnosis SNOMED-CT Code Diagnosis ICD10 Code Diagnosis Note [id number] [facility] [address] [place], [place] [address] 01/28/2024 09:06:54 02/07/2024 10:22:06 Pain of right knee joint 4563089480 12567 M25.561 Osteoarthr itis of right knee joint 2412678922 20597 M17.11 Health Concerns Section Related Observation LastModified by Organization Detai ls LastModified Time None Recorded Concern Status LastModified by Organization Details LastModified Time None Recorded Advance Directives Directive None Recorded Payers Insurance Date Sequence Insurance Name Policy Number Policy Yañez Covered Member ID Yañez Member ID Guarantor Name 02/07/2024 1 [facility] - DOS ON OR AFTER 2023 - ONE CARE (MEDICARE REPLACEMENT/ADV ANTAGE - HMO) Zaida Geiger [id number] Zaida Geiger Notes Date Note Type Note Provider Name and Address Organization Details Recorded Time 01/28/2024 text/html I am seeing the patient today under the supervision of Dr. Martinez who was available but who did not see the patient. HPI:Patient is an 78-year-old female [place] speaking only who presents to the office today with her for right knee pain. [employer] services were used for this visit. Patient [...] reviewed, updated and is located in the patient s chart. Examination:Well appearing 78 year-old female [...] the patellofemoral joint. No evidence of fracture. Impression:Right Knee osteoarthritis Plan:We discussed the role of conservative management including medications, physical therapy, injection and bracing. At this point the patient was to proceed with injection. Please see procedure note. They will follow up with us as scheduled. Yordy Henson PA-C [address] [place] [address] [address], [place], [address], [place] - [place] [facility] 01/28/2024 13:31:11 OBGyn Episode No OBEpisode recorded.
--- OUTSIDE RECORDS SUMMARY | 2025-04-23 10:27 | XMS_ITS | Clinical Summary ---
Author Organization [facility] Address [address] [place] [address] Care Team Providers Care Research Phlebotomist Name Role Phone Unavailable Primary Care Provider [...] 19+ 3-dose series) 09/01/2019 08/04/2019 COVID-19 Vaccine ( - season) 2024 07/17/2022, 03/09/2022, 01/31/2021 Tobacco Screening 11/21/2024 11/21/2023 Influenza Vaccine (#1) 2025 , 08/16/2022, 08/01/2020, Additional history exists Dental X-Ray: Full Mouth 11/22/2026 11/21/2023 DTaP/Tdap/Td [...] patient's age to complete this topic Meningococcal B Vaccine Aged Out No l onger eligible based on patient's age to complete [...] Most Recently Relevant to Health Maintenance Insurance [facility]
--- OUTSIDE RECORDS SUMMARY | 2025-04-23 10:27 | XMS_ITS | Clinical Summary ---
Author Organization [facility] Address [address] [place] [address] Care Team Providers Care Fitter Up Name Role Phone Wilfrido Matute PA-C Primary Care Provider [phone] Source Comments PLEASE NOTE, if this patient [...] documented on 08/11/19 Penicillins 12/26/2017 Medications alcohol swabsIndications:U ncontrolled type 2 diabetes mellitus with hyperglycemia ([facility]) Use to clean skin up to 2x/d [...] 1 12/19/19 24 Active MISCELLANEOUS MEDICAL SUPPLY MISCIndications:Ri ght [...] controlled type 2 diabetes mellitus with hyperglycemia ([facility]) Use to inject insulin 1x/d UD DXE11.59 [...] :Moderate episode of recurrent major depressive disorder ([facility]) Take 1 Capsule by mouth nightly at bedtime 30 Capsule 5 09/29/20 24 Active melatonin 3 mg tabletIndications: Acute insomnia Take 1 Tablet by mouth nightly at bedtime as needed for sleep for sleep 30 Tablet 5 09/29/20 24 Active JARDIANCE 25 mg tabIndications:Unc ontrolled type 2 diabetes mellitus with hyperglycemia ([facility]) TAKE 1 TABLET BY MOUTH DAILY 90 Tablet 1 12/03/19 25 Active sertraline (ZOLOFT) 50 mg tablet TAKE 1/2 TABLET BY MOUTH DAILY FOR 2 WEEKS. THEN IF TOLERATED INCREASE TO 1 TABLET Authorized by: AGGIE SHEA 11/27/19 25 Active blood-glucose meter (ONETOUCH VERIO REFLECT METER) monitoring kitIndications:Unc ontrolled type 2 diabetes mellitus with hyperglycemia ([facility]) Use to test BG 1x/d UD DXE11.65 OneTouch Verio Reflect Meter 1 Each 02/05/20 25 Active glipiZIDE XL (GLUCOTROL XL) 5 mg ER, 24 hour tabletIndications: Uncontrolled type 2 diabetes mellitus with hyperglycemia ([facility]) Take 1 Tablet by mouth once daily 90 Tablet 1 02/05/20 25 Active insulin glargine (LANTUS SOLOSTAR U-100 INSULIN) 100 unit/mL (3 mL) penIndications:Unc ontrolled type 2 diabetes mellitus with hyperglycemia ([facility]) ADMINISTER 26 UNITS UNDER THE SKIN EVERY MORNING 15 mL 1 02/05/20 25 Active blood sugar diagnostic (ONETOUCH VERIO TEST STRIPS) stripsIndications: Uncontrolled type 2 diabetes mellitus with hyperglycemia ([facility] & [facility]) Use to test BG 1x/d UD DXE11.59 OneTouch Verio Test Strips 100 Each 11 02/05/20 25 Active lancets (ONETOUCH DELICA PLUS LANCET) 30 gaugeIndications:U ncontrolled type 2 diabetes mellitus with hyperglycemia ([facility]) Use to test BG 1x/d UD [id number] One Touch Delica Plus Lancet 30G 100 Each 11 02/05/20 25 Active lidocaine (LIDODERM) 5 % patchIndications:T rochanteric bursitis, unspecified laterality Apply 1 patch to the affected area for a maximum of 12 hours, followed by removal for 12 hours. 15 Patch 3 02/10/20 25 Active MISCELLANEOUS MEDICAL SUPPLY MISCIndications:Ga it instability by miscellaneous route daily Supply: rollator with seat Dx: gait instability, lumbar disc herniation, sciatica of right side Length of need: Lifetime. 1 Each 03/12/20 25 Active Active Problems Problem Noted Date Diagnosed [...] episode of recurren t major depressive disorder ([facility]) 07/28/2019 High triglycerides 12/30/2017 Essential hypertension 12/26/2017 Encounters Date Type Department Care Team Description 03/16/2025 Interim Notes [address] [address] Julianna Shipley DC 02/09/2025 11:20 AM EDT Office Visit [address] [address] Wilfrido Matute PA-C 02/05/2025 Results Follow-Up [address] [address] Gabe Vera, PharmD 02/04/2025 1:20 PM EDT Office Visit [address] [address] Gabe Vera, PharmD from Last 3 Months Immunizations Immunization Administration Dates Next Due Flu, Adjuvant, 65y+ (Fluad) 08/01/2020 Flu, High Dose, 65y+, Fluzon e High Dose 08/16/2022 Hep B, Adult/Adol (WPSOENI-V-LDKTW/RECOMBIVAX-ADULT) 08/04/2019 Hep B,adult,adjuvanted (HEPLISAV) 12/19/2023 Influenza (FLUZONE), high-do [...] e alcohol) Social Connections Answer Date Recorded How often do you feel lonely or isolated from th ose around you? 1 09/29/2024 Financial Resource Strain Answer Date R ecorded Hard to pay for: Food 1 09/29/2024 Stress Answer Date Recorded Do you feel these kinds of stress these days? 1 09/29/2024 Physical Activity Answer Date Recorded Physical Activity 0 06/08/2019 Food Insecurity Answer Date Recorded Hard to pay for: Food 1 09/29/2024 Transportation Needs Answer Date Record ed Hard to pay for: Transportation 1 09/29/2024 Housing Stability Answer Date Recorded Hard to pay for: Rent/Mortgage payment 1 09/29/2024 Safety and Environment Answer Date Arnie rded Safety 0 06/08/2019 Utilities Answer Date Recorded Hard to pay for: Utilities 1 09/29 Employment Answer Date Recorded Stress 0 06/25/2024 [...] 97 02/09/2025 11:11 AM EDT Temperature 36.8 C (98.3 F) 02/09/2025 11:11 AM EDT Respiratory Rate 18 02/09/2025 11:11 AM EDT [...] Advanced Care Planning 1945 Retinopathy Screening 01/31/1958 Imm-RSV (adult) (1 - 1-dose 75+ series) 2018 Diabetes Foot Exam 12/18/2024 12/19/2023, 0 12/19/2023, 05/17/2022, Additional history exists Falls Prevention 12/18/2024 12/19/2023, , 03/28/2021, Additional history exists Urine Albumin Creatinine Ratio Screening 12/18/2024 12/19/2023, 10/30/2022, 12/07/2020, Additional history exists Depression Monitoring 05/11/2025 02/09/2025 , 09/29/2024, 06/24/2024, Additional history exists Tsa-SLADV-93 ( season) 2025 01/31/2021 Postponed from 06/14/2024 (Patient postponement) Imm-Hepatitis B (3 of 3 - 19+ 3-dose series) 05/11/2025 12/19/2023, 08/04/2019 Postponed from 02/13/2024 (Patient postponement) Imm-Influenza (#1) 2025 06/24/2024, 1 10/16/2021, 08/01/2020, Additional history exists Serum Creatinine 07/29/2025 07/29/2024, 04/2024, 10/24/2022, Additional history exists Hemoglobin A1c 08/06/2025 02/04/2025, 01/0 06/2025, 07/23/2024, Additional history exists Medicare Annual Wellness Visit 12/31/2025 12/31/2024, 12/19/2023 Lipid Screening 02/04/2026 02/04/2025, 03/0 04/2024, 10/24/2022, Additional history exists Tobacco Screening 02/09/2026 02/09/2025 Imm-DTaP/Tdap/Td (2 - Td or Tdap) 12/12/2032 12/12/2022 Imm-Pneumococcal 50+ Completed 05/17/2022, 08/04/2019, 10/16/2017 Imm-Zoster, Recombinant Completed 08/16/2022, 06/08 Bone Density Screening Completed , 02/05/2023, 02/05/2023 Alcohol and Drug Screen Completed 02/10/20, 09/29/2024, [...] Name Priority Date/Time Associated Diagnosis Comments REFERRAL TO ORTHOPEDICS Routine 03/30/2025 3:00 AM EDT Lumbar pain Bilateral hip pain LIPID PANEL Routine 02/04/2025 1:58 PM EDT Uncontrolled type 2 diabetes mellitus with hyperglycemia ([facility]) HGBA1C W/MPG Routine 02/04/2025 1:58 PM EDT Uncontrolled type 2 diabetes mellitus with hyperglycemia ([facility]) GLUCOSE, BLOOD BY GLUCOSE MONITORING DEVICE (CLIA WAIVED)POCT Routine 02/04/2025 1:24 PM EDT Uncontrolled type 2 diabetes mellitus with hyperglycemia ([facility]) ANNUAL WELLNESS VISIT SCANNED DOCUMENT 12/31/2024 3:00 AM EDT COMPREHENSIVE METABOLIC PANEL Routine 07/29/2024 3:13 PM EDT Preoperative clearance MICROALBUMIN/CREATINI NE RATIO, URINE, RANDOM Routine 12/19/2023 11:06 AM EST Uncontrolled type 2 diabetes mellitus with hyperglycemia ([facility]) DXA BONE DENSITY STUDY 1/> SITES AXIAL SKEL Routine 02/05/2023 3:00 AM EDT Postmenopausal from Last 3 Months or Most Recently Relevant to Health Maintenance Results * REFERRAL TO ORTHOPEDICS (03/30/2025 3:00 AM EDT) 03/30/2025 3:00 AM EDT Wilfrido Matute PA-C REFERRAL Edited Resul t - Final * (ABNORMAL) HGBA1C W/MPG (02/04/2025 1:58 PM EDT) HEMOGLOBIN A1C 7.5(H) <5.7 % [employer] Comment: For someone without known diabetes, a [...] A1c for diagnosis of diabetes for children. MEAN PLASMA GLUCOSE 190 mg/dL (calc) [employer] Blood Blood / Unknown 02/04/2025 1 :58 PM EDT 02/04/2025 1:59 PM EDT Gabe Iqbal PharmD LAB - BLOOD D RAW Edited Result - Final [facility] [address] [place] [address], [employer] [address] [place] [id number] * (ABNORMAL) LIPID PANEL (02/04/2025 1:58 PM EDT) CHOLESTEROL, TOTAL 142 <200 mg/dL [facility] HDL CHOLESTEROL 45(L) > OR = 50 mg/dL [facility] TRIGLYCERIDES 223(H) <150 mg/dL [facility] Comment: If a non-fasting specimen was collected, consider repeat triglyceride testing on a fasting specimen if clinically indicated. Miriam et al. J. of Clin. Lipidol. 2015;9:129-169. LDL-CHOLESTEROL 69 99 mg/dL (calc) [employer] Comment: Reference range: <100 Desirable range <100 mg/dL for primary prevention; <70 mg/dL for patients with CHD or diabetic patients with > or = 2 CHD risk factors. LDL-C is now calculated using the Ambar calculation, which is a validated novel method providing better accuracy than the Friedewald equation in the estimation of LDL-C. Wily COOK et al. RAHEEL. 2013;310(19): 3309-1030 (http://education.[employer]/faq/CFV560) CHOL/HDLC RATIO 3.2 <5.0 (calc) [facility] NON-HDL CHOLESTEROL 97 <130 mg/dL (calc) [facility] Comment: For patients with diabetes plus 1 major ASCVD risk factor, treating to a non-HDL-C goal of <100 mg/dL (LDL-C of <70 mg/dL) is considered a therapeutic option. Blood Blood / Unknown 02/04/2025 1 :58 PM EDT 02/04/2025 1:59 PM EDT Gabe Iqbal PharmD LAB - BLOOD D RAW Final Result [facility] [facility] [address] [address], [facility] [address] [address] * GLUCOSE, BLOOD BY GLUCOSE MONITORING DEVICE (CLIA WAIVED)POCT (02/04/2025 1:24 PM EDT) GLUCOSE 88 70 - 100 mg/dL [facility] POCT Capillary Blood Blood / Unknown 1:24 PM EDT Gabe Iqbal PharmD LAB - BLOOD D RAW Final Result [facility] POCT * ANNUAL WELLNESS VISIT SCANNED DOCUMENT (12/31/2024 3:00 AM EDT) 12/31/2024 3:00 AM EDT Anthony Triplett MD SCAN OTHER ORDERS Final Resu lt * (ABNORMAL) COMPREHENSIVE METABOLIC PANEL (07/29/2024 3:13 PM EDT) GLUCOSE 181(H) 65 - 139 mg/dL [facility] Comment: Non-fasting reference interval UREA NITROGEN (BUN) 17 7 - 25 mg/dL [facility] CREATININE (blood) 0.88 0.60 - 0.95 mg/dL [facility] EGFR 66 > OR = 60 mL/min/1. 73m2 [facility] BUN/CREATININE RATIO SEE NOTE: [facility] Comment: Not Reported: BUN and Creatinine are within reference range. SODIUM 139 135 - 146 mmol/L [facility] POTASSIUM 4.0 3.5 - 5.3 mmol/L [facility] CHLORIDE 101 98 - 110 mmol/L [facility] CARBON DIOXIDE 29 20 - 32 mmol/L [facility] CALCIUM 9.6 8.6 - 10.4 mg/dL [facility] PROTEIN, TOTAL 6.7 6.1 - 8.1 g/dL [facility] ALBUMIN 4.0 3.6 - 5.1 g/dL [facility] GLOBULIN 2.7 1.9 - 3.7 g/dL (calc) [facility] ALBUMIN/GLOBULI N RATIO 1.5 1.0 - 2.5 (calc) [facility] BILIRUBIN, TOTAL 0.6 0.2 - 1.2 mg/dL [facility] ALKALINE PHOSPHATASE 59 37 - 153 U/L [facility] AST 14 10 - 35 U/L [facility] ALT 14 6 - 29 U/L [facility] Blood Blood / Unknown 07/29/2024 3 :13 PM EDT 07/29/2024 3:14 PM EDT Narrative [employer] [facility] - 07/30/2024 6:02 AM EDT FASTING:NO Wilfrido Matute PA-C LAB - BLOOD DRAW Final Resul t [facility] [facility] [address] [address], [employer] [facility] [address] [place] [address] * (ABNORMAL) MICROALBUMIN/CREATININE RATIO, URINE, RANDOM (12/19/2023 11:06 AM EST) CREATININE, RANDOM URINE 67 20 - 275 mg/dL [facility] MICROALBUMIN 4.0 mg/dL [employer] [address] [facility] [employer] [facility] Comment: Reference Range Not established MICROALBUMIN/CREA TININE RATIO, RANDOM URINE 60(H) <30 mcg/mg creat [facility] Comment: The ADA defines abnormalities in albumin excretion as follows: Albuminuria Category Result (mcg/mg creatinine) Normal to Mildly increased <30 Moderately increased 30-299 Severely increased > OR = 300 The ADA recommends that at least two of three specimens collected within a 3-6 month period be abnormal before considering a patient to be within a diagnostic category. Urine Urine specimen / Unknown 12/19/2023 11:06 AM EST 12/19/2023 11:07 AM EST Narrative [facility] - 12/20/2023 6:17 PM EST FASTING:NO PATIENT UNABLE TO VOID; ADVISED TO RETURN FOR COLLECTION. us Wilfrido Matute PA-C LAB URINE AMBULATORY Final R esult [facility] [address] [address], [employer] [address] [address] * DXA BONE DENSITY STUDY 1/> SITES AXIAL SKEL (02/05/2023 3:00 AM EDT) 02/05/2023 3:00 AM EDT us Wilfrido Matute PA-C IMG DXA Edited Resul t - Final from Last 3 Months or Most Recently Relevant to Health Maintenance Insurance [facility] [place] [id number] Care Teams Fitter Up Relationship Specialty Start Date End Date Wilfrido Matute PA-C [address] [place] [id number] PCP - General 03/23/22
== END 2025-04-23 10:30 | disposition home or self-care (01) ==
LOC: HO.HGS 10:03
PROVIDERS: PCP Physician Assistant; Visit Provider Surgery
DX: K62.3 Rectal prolapse (principal)
CPT/HCPCS: 46600; 99203

== ENCOUNTER → 2025-04-23 10:02 | Outpatient (BNVA) | payer OTHER, SELFPAY | PROVIDERS: PCP Physician Assistant; Visit Provider Surgery | DX: K62.3 Rectal prolapse (principal) | CPT/HCPCS: 46600; 99202 ==

== ENCOUNTER 2025-06-25 10:17 | Outpatient (AMB) | payer OTHER, SELFPAY ==
[2025-06-25 10:19] VITALS: BP 130/60; PULSE 73; RESP 16; O2SAT 94; BMI 24.0
--- NOTE | 2025-06-25 10:19 | A.OFFVIS_ITS ---
Vital Signs 06/25/25 10:19 Height 4 ft 11 in Weight 119 lb BMI 24.0 BP 130/60 Blood Pressure Location Rt brachial Position Sitting Respiration 16 Pulse 73 Pulse Source Pulse Oximeter Pulse Oximetry (%) 94 Oxygen Delivery Method Room Air Intake Visit Reasons: Spinal stenosis, lumbar region Economic Development Specialist Required: Yes Accompanied by: Self / Same As Patient Allergies Penicillins Allergy (Unknown, Verified 06/25/25 10:26) Unknown aspirin (ASA) Allergy (Verified 06/25/25 10:26) Unknown HPI Comments Details: The patient is an 80-year-old female presenting with back pain due to a bulging intervertebral disc. The pain is attributed to nerve compression caused by the disc bulge, which has been exacerbated by her underlying diabetes mellitus. She has been managing the pain with physical therapy and has been advised to receive an injection for pain relief. The patient has a history of diabetes mellitus, which she monitors regularly through blood sugar checks. Her last A1c level is not specified, but she reports that her blood sugar levels are stable. Additionally, the patient has been diagnosed with arthritis, which has been confirmed through previous x-rays. She has not experienced any recent falls, and her pain management includes the use of ice and warm baths. - Pain is located in the back due to a bulging intervertebral disc. - Pain is exacerbated by nerve compression and underlying diabetes mellitus. - Pain management includes physical therapy, ice, and warm baths. - Affect: Pain impacts daily activities, requiring physical therapy and potential injection for relief. - Analgesia: Current management includes physical therapy, ice, and warm baths; injection planned pending A1c results. - Activities of Daily Living: Pain affects mobility, but no recent falls reported. [facility] Medical History (Updated 04/23/25 @ 10:29 by Daniel Webb MD) Rectal mucosa prolapse Dementia Diabetes HTN (hypertension) Social History Alcohol intake: never Patient Tobacco Use Status: Never used Tobacco Current occupational status: disabled Review of Systems Const Details: - Musculoskeletal: Reports back pain due to bulging intervertebral disc. - Endocrine: Reports stable blood sugar levels; denies recent falls. Physical Exam Exam Exam: General: awake, alert, oriented. Answers questions appropriately. Fully engaged in examination. Skin: warm, dry, intact. Varicose veins noted left calf. Tender to palpation HEENT: Normocephalic. Hearing intact. Cardiac: External chest normal in appearance. Respiratory: No cough, audible wheezing or stridor. Abdomen: without gross distension. MS: No obvious swelling or deformities. Ambulates with steady gait. Able to rise from sit to stand without assistance. Nontender over midline lumbar vertebrae and lower paraspinal muscles SLR negative bilaterally Neurological: Oriented to person, place, time and situation. Thought process intact. No gait abnormalities appreciated. Psychiatric: Appropriate mood and affect. Good judgment and insight. Vital Signs: Last Vital Signs Pulse 73 06/25/25 10:19 Resp 16 06/25/25 10:19 BP 130/60 06/25/25 10:19 Pulse Ox 94 06/25/25 10:19 Oxygen Delivery Method Room Air 06/25/25 10:19 BMI result Body Mass Index 24.0 Results Reviewed Results Reviewed: 11/04/2024 MRI lumbar spine Findings: Multilevel disc dehydration. Jjxyxiog-ea-gkfzhe disc narrowing noted at several levels. L2 vertebral body hemangioma. Gwnh-tl-lvwtxfkr Modic type 1 changes at L3/L4. No evidence of marrow infiltration. Normal alignment without acute fracture. Conus terminates at T12/L1. Unremarkable appearance of the visualized cord and conus medullaris. L5/S1: Mild disc bulge and bilateral facet hypertrophy associated with mild right lateral recess and bilateral neural foraminal compromise. Up to 5 mm (AP dimension) right anterior zone disc-osteophyte. L4/L5: Up to 3 mm (AP dimension) disc bulge and facet/ligamentum flava hypertrophy associated with severe bilateral lateral recess stenosis and moderate central canal compromise (midsagittal dimension of the thecal sac measures 7 mm). Yush-th-byesztgq right and mild left neural foraminal stenosis. L3/L4: Left-sided disc herniation (with a superiorly migrating component -to the infrapedicular L3 level- from the left central to left neural foraminal zones) along with facet/ligamentum flava hypertrophy associated with severe bilateral lateral recess, severe central canal (midsagittal dimension of the thecal sac measures 4 mm), as well as severe left and mild right neural foraminal compromise. Small focus/foci of susceptibility artifact in the vicinity of the superior aspect of the herniated disc (posterior to the L3 vertebral body) may be due to vacuum disc phenomena. L2/L3: Disc bulge and facet/ligamentum flava hypertrophy associated with pxag-hf-vkugzdib bilateral lateral recess and central canal compromise , as well as mild bilateral neural foraminal stenosis. T12/L1 and L1/L2: No evidence of significant central canal or neural foraminal stenosis. Bilateral renal cyst/cystic appearing lesions could be further evaluated with ultrasound. A few small uterine fibroids. Colonic diverticulosis. IMPRESSION: L3/L4: Left-sided disc herniation (with a superiorly migrating component -to the infrapedicular L3 level- from the left central to left neural foraminal zones) along with facet/ligamentum flava hypertrophy associated with severe bilateral lateral recess, severe central canal (midsagittal dimension of the thecal sac measures 4 mm), as well as severe left neural foraminal compromise. L4/L5: Up to 3 mm (AP dimension) disc bulge and facet/ligamentum flava hypertrophy associated with severe bilateral lateral recess stenosis and moderate central canal compromise (midsagittal dimension of the thecal sac measures 7 mm). Ofwb-vh-unlwqimo right neural foraminal stenosis. 07/2024 US/US venous duplex LE LT FINDINGS: Respiratory variation, normal compression and augmented flow are noted throughout the left lower extremity. The visualized common femoral vein, superficial femoral vein, profunda femoral vein, popliteal vein and midcalf peroneal and posterior tibial venous segments show no evidence of deep venous thrombosis. There is no [place]'s cyst. IMPRESSION: No evidence of deep venous thrombosis involving the left lower extremity. 07/2024 XR/XR knee LT 4V FINDINGS: Alignment is anatomic. No visible acute fracture or dislocation. No significant effusion. Severe medial compartment arthritis. Mild lateral compartment arthritis. Prominent patellofemoral arthritis, seen on the lateral view. Extensive vascular calcifications.. IMPRESSION: Tricompartment osteoarthritis. Severe medial compartment arthritis. No radiographic evidence of acute fracture. No significant effusion. Assessment & Plan Assessment & Plan (1) Diabetes: Code(s): E11.9 - Type 2 diabetes mellitus without complications Category: Medical (2) Lumbar spinal stenosis: Code(s): M48.061 - Spinal stenosis, lumbar region without neurogenic claudication Category: Medical Qualifiers: Neurogenic claudication status: with neurogenic claudication Qualified Code(s): M48.062 - Spinal stenosis, lumbar region with neurogenic claudication (3) Lumbar disc herniation: Code(s): M51.26 - Other intervertebral disc displacement, lumbar region Category: Medical Plan The plan includes obtaining blood work to assess the patient's A1c level, which is necessary before proceeding with the steroid injection for pain management. The patient will continue with physical therapy and use of Tylenol, ice and warm baths to manage her pain. Once the A1c level is confirmed to be within acceptable range, the injection will be scheduled, as insurance approval has already been obtained. Will schedule for fluoroscopy guided L4-5 interlaminar epidural injection with local anesthetic as requested by Dr. Salguero, physiatry. Patient was informed and verbally consented to the use of an ambient scribe for clinic note documentation during this visit. Orders: Orders Hemoglobin A1c Today E11.9 - Type 2 diabetes mellitus without complications Patient Instructions: - Continue with physical therapy and use ice and warm baths to manage pain. - Obtain blood work to check A1c level as soon as possible. - Await confirmation of A1c level before scheduling the injection. Coding Level of Care Code Est Pt Level 3 (94891) Complex EM visit Add On G2211 Diagnoses Diabetes E11.9 Spinal stenosis of lumbar region with neurogenic claudication M48.062 Neurogenic claudication status: with neurogenic claudication Lumbar disc herniation M51.26
--- OUTSIDE RECORDS SUMMARY | 2025-06-25 11:42 | XMS_ITS | Clinical Summary ---
Author Organization [facility] Address [address] [place] [address] Care Team Providers Care Assistant Foreman Name Role Phone Wilfrido Matute PA-C Primary [...] Uncontrolled type 2 diabetes mellitus with hyperglycemia ([facility]) Use to clean skin up to 2x/d [...] BP. [employer] 1 Kit 023 Active calcium-vitamin D3-vitamin K 500 mg-1,000 unit-40 mcg chewIndications:P ostmenopausal Chew and swallow 1 Tablet by mouth once daily 90 Tablet 1 024 Active MISCELLANEOUS MEDICAL SUPPLY MISCIndications:R ight leg pain,Gait instability,Pain of both hip joints by miscellaneous route daily Dx: right leg pain, pain in both hip[ joints, gait instability. LEWIS: 99, Supply: 4 wheel mobility scooter for adults with basket 1 Each 024 Active pen needle, diabetic (BD ULTRA-FINE RUBEN PEN NEEDLE) 32 gauge x ndleIndications:U ncontrolled type 2 diabetes mellitus with hyperglycemia ([facility]) Use to inject insulin 1x/d UD DXE11.59 100 Each 11 024 Active hydrOXYzine HCL (ATARAX) 25 mg tabletIndications :Psychophysiologi dylon insomnia Take 1 Tablet by mouth nightly at bedtime as needed for anxiety or sleep 30 Tablet 1 024 Active gabapentin (NEURONTIN) 100 mg capsuleIndication s:Moderate episode of recurrent major depressive disorder ([facility]) Take 1 Capsule by mouth nightly at bedtime 30 Capsule 5 024 Active sertraline (ZOLOFT) 50 mg tablet TAKE 1/2 TABLET BY MOUTH DAILY FOR 2 WEEKS. THEN IF TOLERATED INCREASE TO 1 TABLET Authorized by: AGGIE SHEA 025 Active blood-glucose meter (ONETOUCH VERIO REFLECT METER) monitoring kitIndications:Un controlled type 2 diabetes mellitus with hyperglycemia ([facility]) Use to test BG 1x/d UD DXE11.65 OneTouch Verio Reflect Meter 1 Each 025 Active blood sugar diagnostic (ONETOUCH VERIO TEST STRIPS) stripsIndications :Uncontrolled type 2 diabetes mellitus with hyperglycemia ([facility]) Use to test BG 1x/d UD DXE11.59 OneTouch Verio Test Strips 100 Each 11 025 Active lancets (ONETOUCH DELICA PLUS LANCET) 30 gaugeIndications: Uncontrolled type 2 diabetes mellitus with hyperglycemia ([facility]) Use to test BG 1x/d UD [id number] One Touch Delica Plus Lancet 30G 100 Each 11 025 Active lidocaine (LIDODERM) 5 % patchIndications: Trochanteric bursitis, unspecified laterality Apply 1 patch to the affected area for a maximum of 12 hours, followed by removal for 12 hours. 15 Patch 3 025 Active MISCELLANEOUS MEDICAL SUPPLY MISCIndications:G ait instability by miscellaneous route daily Supply: rollator with seat Dx: gait instability, lumbar disc herniation, sciatica of right side Length of need: Lifetime. 1 Each 025 Active insulin glargine (LANTUS SOLOSTAR U-100 INSULIN) 100 unit/mL (3 mL) penIndications:Un controlled type 2 diabetes mellitus with hyperglycemia ([facility]) ADMINISTER 26 UNITS UNDER THE SKIN EVERY MORNING. 15 mL 1 025 Active amLODIPine (NORVASC) 10 mg tabletIndications :Essential hypertension Take 1 Tablet by mouth once daily. 90 Tablet 1 025 Active atorvastatin (LIPITOR) 40 mg tabletIndications :Mixed hyperlipidemia Take 1 Tablet by mouth once daily. 90 Tablet 1 025 Active glipiZIDE XL (GLUCOTROL XL) 5 mg ER, 24 hour tabletIndications :Type 2 diabetes mellitus with hyperglycemia, with long-term current use of insulin ([facility]) Take 1 Tablet by mouth once daily. 90 Tablet 1 025 Active empagliflozin (JARDIANCE) 25 mg tabIndications:Ty pe 2 diabetes mellitus with hyperglycemia, with long-term current use of insulin ([facility]) Take 1 Tablet by mouth once daily. 90 Tablet 1 025 Active melatonin 3 mg tabletIndications :Acute insomnia TAKE 1 TABLET BY MOUTH EVERY NIGHT AT BEDTIME NEEDED FOR SLEEP. 30 Tablet 5 025 Active melatonin 3 mg tabletIndications :Acute insomnia Take 1 Tablet by mouth nightly at bedtime as needed for sleep for sleep 30 Tablet 5 024 2024 Discontinued Active Problems Problem Noted [...] episode of recurren t major depressive disorder ([facility]) 07/28/2019 High triglycerides 12/30/2017 Essential hypertension 12/26/2017 Encounters Date Type Department Care Team Description 05/21/2025 Results Follow-Up [address] [phone] Gabe Vera, PharmD 05/20/2025 2:20 PM EDT Office Visit [address] [phone] Gabe Vera, PharmD from Last 3 Months Immunizations Immunization Administration Dates Next Due Flu, Adjuvant, 65y+ (Fluad) 08/01/2020 Flu, High Dose, 65y+, Fluzon e High Dose 08/16/2022 Hep B, Adult/Adol ([id number]-I-TXEMH/RECOMBIVAX-ADULT) 08/04/2019 Hep B,adult,adjuvanted (HEPLISAV) 12/19/2023 Influenza (FLUZONE), [...] Smokeless Tobacco: Never Chew Tobacco Cessation:Counseling Given: Yes Alcohol Use Standard Drinks/Week Comments No 0 [...] Sign Reading Time Taken Comments Blood Pressure 114/58 05/20/2025 2:21 PM EDT Pulse 64 05/20/2025 2:21 PM EDT Temperature 37.2 C (98.9 F) 05/20/2025 2:21 PM EDT Respiratory Rate 16 05/20/2025 2:21 PM EDT Oxygen Saturation 96% 05/20/2025 2:21 PM EDT Inhaled Oxygen Concentration - - Weight 55.6 kg (122 lb 9.6 oz) 05/20/2025 2:21 P M EDT Height 144.8 cm (4' 9 ) 02/09/2025 11:11 AM EDT Body Mass Index 26.53 02/09/2025 11:11 AM EDT Plan of Treatment Health Maintenance Due Date Last Done Comments Dental Examination 1945 Advanced Care Planning 1945 Retinopathy Screening 01/31/1958 Imm-RSV (adult) (1 - 1-dose 75+ series) 2018 Imm-Hepatitis B (3 of 3 - 19 + 3-dose series) 02/13/2024 12/19/2023, 08/04/2019 Diabetes Foot Exam 12/18/2024 12/19/2023, 0 12/19/2023, 05/17/2022, Additional history exists Falls Prevention 12/18/2024 12/19/2023, , 03/28/2021, Additional history exists Depression Monitoring 05/11/2025 02/09/2025 , 09/29/2024, 06/24/2024, Additional history exists [id number] (2 - season) 2025 021 Imm-Influenza (#1) 2025 06/24/2024, 1 10/16/2021, 08/01/2020, Additional history exists Serum Creatinine 07/29/2025 07/29/2024, 04/2024, 10/24/2022, Additional history exists Hemoglobin A1c 11/20/2025 05/20/2025, 0401/2025, 10/22/2024, Additional history exists Medicare Annual Wellness Visit 12/31/2025 12/31/2024 , 12/19/2023 Lipid Screening 02/04/2026 02/04/2025, 0304/2024, 10/24/2022, Additional history exists Tobacco Screening 05/20/2026 05/20/2025 Urine Albumin Creatinine Rat io Screening 05/20/2026 05/20/2025, 12/19/2023, 10/30/2022, Additional history exists Imm-DTaP/Tdap/Td (2 - Td or Tdap) 12/12/2032 023 Imm-Pneumococcal 50+ Completed 05/17/2022, 08/04/2019, 10/16/2017 Imm-Zoster, Recombinant Completed 08/16/2022, 06/08 Bone Density Screening Completed , 02/05/2023, 02/05/2023 Alcohol and Drug Screen Completed 02/10/20, 09/29/2024, 06/24/2024, Additional history exists Goals Goal Patient Goal Type Associated Problems Recent Progress Patient-Stated? Author Blood Pressure < 140/90 Blood Pressure Essential hypertension 114/58(05/20 2:21 PM EDT) No Antoine Conley, Sharron Hypertension: Decrease sodium intake General On track(2022 1:52 PM PDT) No Gabe Vera, Sharron HEMOGLOBIN A1C < 7.0 Result Component 7.4(05/20/20 2:49 PM EDT) No Antoine Conley, Sharron Procedures Procedure Name Priority Date/Time Associated Diagnosis Comments MEDICATIONS SCANNED DOCUMENT 06/11/2025 3:00 AM EDT MICROALBUMIN/CREATINI NE RATIO, URINE, RANDOM Routine 05/20/2025 2:49 PM EDT Type 2 diabetes mellitus with hyperglycemia, with long-term current use of insulin ([facility]) HGBA1C W/MPG Routine 05/20/2025 2:49 PM EDT Type 2 diabetes mellitus with hyperglycemia, with long-term current use of insulin ([facility]) GLUCOSE, BLOOD BY GLUCOSE MONITORING DEVICE (CLIA WAIVED)POCT Routine 05/20/2025 2:30 PM EDT Type 2 diabetes mellitus with hyperglycemia, with long-term current use of insulin ([facility]) REFERRAL SCANNED DOCUMENT 04/23/2025 3:00 AM EDT REFERRAL TO ORTHOPEDICS Routine 03/30/2025 3:00 AM EDT Lumbar pain Bilateral hip pain LIPID PANEL Routine 02/04/2025 1:58 PM EDT Uncontrolled type 2 diabetes mellitus with hyperglycemia ([facility]) ANNUAL WELLNESS VISIT SCANNED DOCUMENT 12/31/2024 3:00 AM EDT COMPREHENSIVE METABOLIC PANEL Routine 07/29/2024 3:13 PM EDT Preoperative clearance DXA BONE DENSITY STUDY 1/> SITES AXIAL SKEL Routine 02/05/2023 3:00 AM EDT Postmenopausal from Last 3 Months or Most Recently Relevant to Health Maintenance Results * MEDICATIONS SCANNED DOCUMENT (06/11/2025 3:00 AM EDT) 06/11/2025 3:00 AM EDT [facility] Provider Default SCAN MEDS OTHER ORDERS Fin al Result * (ABNORMAL) HGBA1C W/MPG Routine (05/20/2025 2:49 PM EDT) HEMOGLOBIN A1C 7.4(H) <5.7 % 05/21/2025 11:33 AM EDT [facility] MEAN PLASMA GLUCOSE 186 mg/dL (calc) 05/21/2025 11:33 AM EDT [facility] Blood Blood / Unknown 05/20/2025 2 :49 PM EDT 05/21/2025 4:06 AM EDT Narrative [email or web address] [employer] - 05/21/2025 11:38 AM EDT For someone without known diabetes, a hemoglobin A1c value of 6.5% or greater indicates that they may have diabetes and this should be confirmed with a follow-up test. . For someone with known diabetes, a value <7% indicates that their diabetes is well controlled and a value greater than or equal to 7% indicates suboptimal control. A1c targets should be individualized based on duration of diabetes, age, comorbid conditions, and other considerations. . Currently, no consensus exists regarding use of hemoglobin A1c for diagnosis of diabetes for children. . Gabe Iqbal PharmD LAB - BLOOD D RAW Final Result [facility] [address] [address], [employer] [address] [address] * (ABNORMAL) MICROALBUMIN/CREATININE RATIO, URINE, RANDOM Urine Routine (05/20/2025 2:49 PM EDT) CREATININE, RANDOM URINE 52 20 - 275 mg/dL 05/21/2025 7:12 PM EDT [facility] MICROALBUMIN 2.9 mg/dL 05/21/2025 7:12 PM EDT [facility] MICROALBUMIN/CRE ATININE RATIO, RANDOM URINE 56(H) <30 mg/g creat 05/21/2025 7:12 PM EDT [facility] Urine Urine specimen / Unknown 05/20/2025 2:49 PM EDT 05/21/2025 6:19 AM EDT Narrative [facility] - 05/21/2025 7:17 PM EDT Reference Range Not established . The ADA defines abnormalities in albumin excretion as follows: . Albuminuria Category Result (mg/g creatinine) . Normal to Mildly increased <30 Moderately increased 30-299 Severely increased > OR = 300 . The ADA recommends that at least two of three specimens collected within a 3-6 month period be abnormal before considering a patient to be within a diagnostic category. Gabe Iqbal PharmD LAB URINE AMB ULATORY Final Result Performing Organization Address City/[facility]/ZIP Co de Phone Number [facility] [employer] [address] [place] [address], [facility] [address] [address] * (ABNORMAL) GLUCOSE, BLOOD BY GLUCOSE MONITORING DEVICE (CLIA WAIVED)POCT Routine (05/20/2025 2:30 PM EDT) GLUCOSE 147(A) 70 - 100 mg/dL [facility]- BACK OFFICE POCT Capillary Blood Blood / Unknown 2:30 PM EDT Gabe Iqbal PharmD LAB - BLOOD D RAW Final Result Performing Organization Address City/[facility]/ZIP Co de Phone Number [facility]- BACK OFFICE POCT * REFERRAL SCANNED DOCUMENT (04/23/2025 3:00 AM EDT) 04/23/2025 3:00 AM EDT us Wilfrido Matute PA-C SCAN REFERRAL Final Result * REFERRAL TO ORTHOPEDICS (03/30/2025 3:00 AM EDT) 03/30/2025 3:00 AM EDT Wilfrido Matute PA-C REFERRAL Edited Resul t - Final * (ABNORMAL) LIPID PANEL (02/04/2025 1:58 PM EDT) CHOLESTEROL, TOTAL 142 <200 mg/dL [facility] HDL CHOLESTEROL 45(L) > OR = 50 mg/dL [facility] TRIGLYCERIDES 223(H) <150 mg/dL [facility] Comment: If a non-fasting specimen was collected, consider repeat triglyceride testing on a fasting specimen if clinically indicated. Miriam et al. J. of Clin. Lipidol. 2015;9:129-169. LDL-CHOLESTEROL 69 99 mg/dL (calc) [facility] Comment: Reference range: <100 Desirable range <100 mg/dL for primary prevention; <70 mg/dL for patients with CHD or diabetic patients with > or = 2 CHD risk factors. LDL-C is now calculated using the Ambar calculation, which is a validated novel method providing better accuracy than the Friedewald equation in the estimation of LDL-C. Wily COOK et al. RAHEEL. 2013;310(19): 4135-4067 (http://education.MapMyFitness/faq/YUC492) CHOL/HDLC RATIO 3.2 <5.0 (calc) [facility] NON-HDL CHOLESTEROL 97 <130 mg/dL (calc) [facility] Comment: For patients with diabetes plus 1 major ASCVD risk factor, treating to a non-HDL-C goal of <100 mg/dL (LDL-C of <70 mg/dL) is considered a therapeutic option. Blood Blood / Unknown 02/04/2025 1 :58 PM EDT 02/04/2025 1:59 PM EDT Gabe Iqbal PharmD LAB - BLOOD D RAW Final Result [facility] [address] [address], [facility] [address] [address] * ANNUAL WELLNESS VISIT SCANNED DOCUMENT (12/31/2024 3:00 AM EDT) 12/31/2024 3:00 AM EDT Result [facility] Anthony Triplett MD SCAN OTHER ORDERS Final Resu lt * (ABNORMAL) COMPREHENSIVE METABOLIC PANEL (07/29/2024 3:13 PM EDT) GLUCOSE 181(H) 65 - 139 mg/dL [facility] Comment: Non-fasting reference interval UREA NITROGEN (BUN) 17 7 - 25 mg/dL [facility] CREATININE (blood) 0.88 0.60 - 0.95 mg/dL [facility] EGFR 66 > OR = 60 mL/min/1. 73m2 [facility] BUN/CREATININE RATIO SEE NOTE: [facility] Comment: Not Reported: BUN and Creatinine are within reference range. SODIUM 139 135 - 146 mmol/L [facility] POTASSIUM 4.0 3.5 - 5.3 mmol/L [facility] CHLORIDE 101 98 - 110 mmol/L [facility] CARBON DIOXIDE 29 20 - 32 mmol/L [facility] CALCIUM 9.6 8.6 - 10.4 mg/dL [facility] PROTEIN, TOTAL 6.7 6.1 - 8.1 g/dL [facility] ALBUMIN 4.0 3.6 - 5.1 g/dL [facility] GLOBULIN 2.7 1.9 - 3.7 g/dL (calc) [facility] ALBUMIN/GLOBULI N RATIO 1.5 1.0 - 2.5 (calc) [facility] BILIRUBIN, TOTAL 0.6 0.2 - 1.2 mg/dL [facility] ALKALINE PHOSPHATASE 59 37 - 153 U/L [facility] AST 14 10 - 35 U/L [facility] ALT 14 6 - 29 U/L [facility] Blood Blood / Unknown 07/29/2024 3 :13 PM EDT 07/29/2024 3:14 PM EDT Narrative [facility] - 07/30/2024 6:02 AM EDT FASTING:NO Result [facility] Wilfrido Matute PA-C LAB - BLOOD DRAW Final Resul t [facility] [address] [address], [facility] [address] [place] [address] * DXA BONE DENSITY STUDY 1/> SITES AXIAL SKEL (02/05/2023 3:00 AM EDT) 02/05/2023 3:00 AM EDT Wilfrido Matute PA-C IM DXA Edited Resul t - Final from Last 3 Months or Most Recently Relevant to Health Maintenance Insurance [facility] Care Teams Assistant Foreman Relationship Specialty Start Date End Date Wilfrido Matute PA-C [address] [place] [address] PCP - General 03/23/22
--- OUTSIDE RECORDS SUMMARY | 2025-06-25 11:42 | XMS_ITS | Encounter Summary ---
Author Organization [facility] Address [address] [place] [address] Care Team Providers Care Manager Bank Name Role Phone Wilfrido Matute PA-C Primary Care Provider [phone] Encounter Details Date Type Department Care Team ([facility] st Contact Info) Description 05/21/2025 Results Follow-Up [facility] [address] [place] [phone] Gabe Vera, PharmD [address] [place] [address] Social History Tobacco Use Types Packs/Day Years [...] Orientation Straight 12/26/2017 12 :43 PM PDT documented as of this encounter Plan of Treatment Not on file documented as of this encounter Goals Goal Patient Goal Type Associated Problems Recent Progress Patient-Stated? Author Blood Pressure < 140/90 Blood Pressure Essential hypertension 114/58(05/20 2:21 PM EDT) No Antoine Conley, NathaliaD Hypertension: Decrease sodium intake General On track(2022 1:52 PM PDT) No Gabe Vera PharmD HEMOGLOBIN A1C < 7.0 Result Component 7.4(05/20/20 2:49 PM EDT) No Antoine Conley, Sharron documented as of this encounter Visit Diagnoses Not on filedocumented in this encounter Additional Health Concerns Assessment Noted Time PHQ-9 Depression Total Score: 1 02/10/20 11:10 AM PDT A Depression follow-up plan has been documented for the patient 02/09/2025 11:32 AM PDT documented as of this encounter Care Teams Manager Bank Relationship Specialty Start Date End Date Wilfrido Matute PA-C [address] [place] [address] PCP - General 03/23/22 documented as of this encounter
--- OUTSIDE RECORDS SUMMARY | 2025-06-25 11:42 | XMS_ITS | Clinical Summary ---
Author Organization [facility] Address [address] [place] [address] Care Team Providers Care Clinical Lab Technologist Name Role Phone Unavailable Primary Care Provider [...] 3 - 19+ 3-dose series) 09/01/2019 08/04/2019 Tobacco Screening 11/21/2024 11/21/2023 COVID-19 Vaccine (4 - season) 2025 07/17/2022, 03/09/2022, 01/31/2021 Influenza Vaccine (#1) 2025 , 08/16/2022, 08/01/2020, [...] Recently Relevant to Health Maintenance Insurance [facility]
== END 2025-06-25 10:59 | disposition home or self-care (01) ==
PROVIDERS: PCP Physician Assistant; Visit Provider Registered Nurse Emergency
DX: E11.9 Type 2 diabetes mellitus without complications (principal); M48.062 Spinal stenosis, lumbar region with neurogenic claudication; M51.26 Other intervertebral disc displacement, lumbar region
CPT/HCPCS: 99213; G2211

== ENCOUNTER → 2025-06-25 10:17 | Outpatient (BNVA) | payer OTHER, SELFPAY | PROVIDERS: PCP Physician Assistant; Visit Provider Registered Nurse Emergency | DX: E11.9 Type 2 diabetes mellitus without complications (principal); M48.062 Spinal stenosis, lumbar region with neurogenic claudication | CPT/HCPCS: 99212 ==

== ENCOUNTER 2025-06-25 11:09 | Outpatient (REF) | payer OTHER, SELFPAY ==
[2025-06-25 13:50] LABS: Hemoglobin A1C 216.1411 umol/L; Total Hemoglobin (HGBA1C) 3648.6028 umol/L
== END 2025-06-25 11:10 | disposition home or self-care (01) ==
LOC: HO.10HDL 11:09
PROVIDERS: Visit Provider Registered Nurse Emergency
DX: E11.9 Type 2 diabetes mellitus without complications (principal)
CPT/HCPCS: 36415; 83036

== ENCOUNTER 2025-08-03 06:12 | Outpatient (REF) | payer OTHER, SELFPAY ==
--- NOTE | ~2025-08-03 | FL_ITS ---
EXAMINATION: FLUOROSCOPY GUIDANCE FOR NEEDLE PLACEMENT CLINICAL INFORMATION: M54.16 - Radiculopathy, lumbar region COMPARISON: Lumbar spine MRI October 2024 TECHNIQUE: Fluoroscopic guidance provided for pain management procedure. 2 submitted images. FINDINGS: Images demonstrate needle placement in the lower lumbar spinal canal at the L4 level and contrast injection. See procedure report for details. FLUOROSCOPY TIME: 0.3 minutes DOSE AREA PRODUCT: 152 uGy-m2 (microgray-meter squared) FL/FL guidance in treatment room IMPRESSION: Fluoroscopy guidance for pain management procedure. Electronically signed by: Lucero Reese MD 08/04/2025 03:06 PM EDT
--- OUTSIDE RECORDS SUMMARY | 2025-08-03 06:14 | XMS_ITS | Data Portability ---
Author Organization [facility], [facility] Address [address] [place] [address] Assessment No assessment recorded. Plan of Treatment Reminders Order Date Submit Date Provider Last Modified By Organization Details Last Modified Time Details Appointments None recorded. Lab None recorded. Referral None recorded. Procedures None recorded. Surgeries None recorded. Imaging XR, knee, 4 or more view - 111 R KNEE 4V W/B. SPAN SPEAKING 2023 024 [facility] [facility], [address], [address], [place], [address], 4 10:22:06 Medication Orders None recorded. Patient TargetsNo targets recorded. Patient InstructionsNo instructions recorded. Reason for Referral None Reported. Problems Name Problem SNOMED Code Status Onset Date Resolution Date Notes Provider Name and Address Organization Details Recorded Time Pain of right knee joint [id number] Active [address], [facility] 4 09:27:27 Problem Notes None recorded. Procedures Surgical History Date Name Laterality Status Provider Name and Address Organization Details Recorded Time 01/28/2024 Sports Knee 4&1 completed Yordy Henson PA-C [address], [place], [address], [facility] 01/28/2024 13:30:46 Imaging Results None recorded. [...] Updated DateTime 01/28/2024 149.86 cm 25.4 kg/m2 81943.64 g ALYSSIA BENJAMIN [place] - [place] [facility] 01/28/2024 09:34:56 Social History None recorded. Functional Status None recorded. Mental Status None recorded. Family History Nothing Reported. Medical History No medical history recorded. Gynecological HistoryNo gynecological history recorded. Obstetrics History GPAL:G 0 P 0 0 0 0 Past Encounters Encounter ID Performer Location Encounter Start Date Encounter Closed Date Diagnosis/Indication Diagnosis SNOMED-CT Code Diagnosis ICD10 Code Diagnosis IMO Codes Diagnosis Note [id number] [facility] [address], [place] [address] 01/28/2024 09:06:54 02/07/2024 10:22:06 Pain of right knee joint [id number] 67694 M25.561 Osteoarthr itis of right knee joint 6634801373 58679 M17.11 Health Concerns Section Related Observation LastModified by Organization Detai ls LastModified Time None Recorded Concern Status LastModified by Organization Details LastModified Time None Recorded Advance Directives Directive None Recorded Payers Insurance Date Sequence Insurance Name Policy Number Policy Yañez Covered Member ID Yañez Member ID Guarantor Name 02/07/2024 1 [facility] - DOS ON OR AFTER 2023 - ONE CARE (MEDICARE REPLACEMENT/ADV ANTAGE - HMO) Zaida Geiger [id number] Zaida Geiger Notes Date Note Type Note Provider Name and Address Organization Details Recorded Time 01/28/2024 text/html ROS as noted in the HPI I am seeing the patient today under the supervision of Dr. Martinez who was available but who did not see the patient. HPI:Patient is an 78-year-old female Bulgarian speaking only who presents to the office today with her for right knee pain. [employer] services were used for this visit. Patient [...] us as scheduled. Yordy Henson PA-C [address] [facility] [facility] [address], [place], [address], [facility] [place] [facility] 01/28/2024 13:31:11 OBGyn Episode No OBEpisode recorded.
--- OUTSIDE RECORDS SUMMARY | 2025-08-03 06:14 | XMS_ITS | Clinical Summary ---
Author Organization [facility] Address [address] [place] [address] Care Team Providers Care Film Inspector Name Role Phone Wilfrido Matute PA-C Primary [...] ncontrolled type 2 diabetes mellitus with hyperglycemia Use to clean skin up to 2x/d [...] by mouth once daily 90 Tablet 1 03/07/20 24 Active MISCELLANEOUS MEDICAL SUPPLY MISCIndications:Ri ght leg pain,Gait instability,Pain of both hip joints by miscellaneous route daily Dx: right leg pain, pain in both hip[ joints, gait instability. LEWIS: 99, Supply: 4 wheel mobility scooter for adults with basket 1 Each 05/28/20 24 Active pen needle, diabetic (BD ULTRA-FINE RUBEN PEN NEEDLE) 32 gauge x /32 ndleIndications:Un controlled type 2 diabetes mellitus with hyperglycemia Use to inject insulin 1x/d UD DXE11.59 100 Each 11 07/23/20 24 Active hydrOXYzine HCL (ATARAX) 25 mg tabletIndications: Psychophysiologica l insomnia Take 1 Tablet by mouth nightly at bedtime as needed for anxiety or sleep 30 Tablet 1 08/26/20 24 Active gabapentin (NEURONTIN) 100 mg capsuleIndications :Moderate episode of recurrent major depressive disorder Take 1 Capsule by mouth nightly at bedtime 30 Capsule 5 09/29/20 24 Active sertraline (ZOLOFT) 50 mg tablet TAKE 1/2 TABLET BY MOUTH DAILY FOR 2 WEEKS. THEN IF TOLERATED INCREASE TO 1 TABLET Authorized by: AGGIE SHEA 11/27/19 25 Active blood-glucose meter (ONETOUCH VERIO REFLECT METER) monitoring kitIndications:Unc ontrolled type 2 diabetes mellitus with hyperglycemia Use to test BG 1x/d UD DXE11.65 OneTouch Verio Reflect Meter 1 Each 02/05/20 25 Active blood sugar diagnostic (ONETOUCH VERIO TEST STRIPS) stripsIndications: Uncontrolled type 2 diabetes mellitus with hyperglycemia Use to test BG 1x/d UD DXE11.59 OneTouch Verio Test Strips 100 Each 11 02/05/20 25 Active lancets (ONETOUCH DELICA PLUS LANCET) 30 gaugeIndications:U ncontrolled type 2 diabetes mellitus with hyperglycemia Use to test BG 1x/d UD [id number] One Touch Delica Plus Lancet 30G 100 Each 02/05/20 25 Active lidocaine (LIDODERM) 5 % [...] need: Lifetime. 1 Each 03/12/20 25 Active insulin glargine (LANTUS SOLOSTAR U-100 INSULIN) 100 unit/mL (3 mL) penIndications:Unc ontrolled type 2 diabetes mellitus with hyperglycemia ADMINISTER 26 UNITS UNDER THE SKIN EVERY MORNING. 15 mL 1 04/29/20 25 Active amLODIPine (NORVASC) 10 mg tabletIndications: Essential hypertension Take 1 Tablet by mouth once daily. 90 Tablet 1 05/20/20 25 Active atorvastatin (LIPITOR) 40 mg tabletIndications: Mixed hyperlipidemia Take 1 Tablet by mouth once daily. 90 Tablet 1 05/20/20 25 Active glipiZIDE XL (GLUCOTROL XL) 5 mg ER, 24 hour tabletIndications: Type 2 diabetes mellitus with hyperglycemia, with long-term current use of insulin Take 1 Tablet by mouth once daily. 90 Tablet 1 05/20/20 25 Active empagliflozin (JARDIANCE) 25 mg tabIndications:Typ e 2 diabetes mellitus with hyperglycemia, with long-term current use of insulin Take 1 Tablet by mouth once daily. 90 Tablet 1 05/20/20 25 Active melatonin 3 mg tabletIndications: Acute insomnia TAKE 1 TABLET BY MOUTH EVERY NIGHT AT BEDTIME NEEDED FOR SLEEP. 30 Tablet 5 06/07/20 25 Active Active Problems Problem Noted Date [...] other mental disorder 07/28/2019 Moderate episode of recurrent major depressive d isorder 07/28/2019 High triglycerides 12/30/2017 Essential hypertension 12/26/2017 Encounters Date Type Department Care Team Description 05/21/2025 Results Follow-Up [address] [phone] Gabe Vera PharmD 05/20/2025 2:20 PM EDT Office Visit [address] [phone] Gabe Vera, Sharron from Last 3 Months Immunizations Immunization Administration Dates Next Due Flu, Adjuvant, 65y+ (Fluad) 08/01/2020 Flu, High Dose, 65y+, Fluzon e High Dose 08/16/2022 Hep B, Adult/Adol (MUMUNUH-K-LGKPX/RECOMBIVAX-ADULT) 08/04/2019 Hep B,adult,adjuvanted (HEPLISAV) 12/19/2023 Influenza (FLUZONE), [...] 02/09/2025 , 09/29/2024, 06/24/2024, Additional history exists [id number] (2 - 2024- season) 2025 021 Imm-Influenza (#1) 2025 06/24/2024, 1 10/16/2021, 08/01/2020, Additional history exists Serum Creatinine 07/29/2025 07/29/2024, 04/2024, 10/24/2022, Additional history exists Hemoglobin A1c 11/20/2025 05/20/2025, 01/13, 10/22/2024, Additional history exists Medicare Annual Wellness Visit 12/31/2025 12/31/2024 , 12/19/2023 Lipid Screening 02/04/2026 02/04/2025, 03/0 04/2024, 10/24/2022, Additional history exists Tobacco Screening 05/20/2026 [...] 114/58(05/20 2:21 PM EDT) No Antoine Conley, PharmD Hypertension: Decrease sodium intake General On track(2022 1:52 PM PDT) No Gabe Vera, PharmD HEMOGLOBIN A1C < 7.0 Result Component 7.4(05/20/20 2:49 PM EDT) No Antoine Conley, PharmD Procedures Procedure Name Priority Date/Time Associated Diagnosis Comments REFERRAL SCANNED DOCUMENT 06/25/2025 3:00 AM EDT REFERRAL SCANNED DOCUMENT 06/25/2025 3:00 AM EDT MEDICATIONS SCANNED DOCUMENT 06/11/2025 3:00 AM EDT MICROALBUMIN/CREATINI NE RATIO, URINE, RANDOM Routine 05/20/2025 2:49 PM EDT Type 2 diabetes mellitus with hyperglycemia, with long-term current use of insulin ([facility]) HGBA1C W/MPG Routine 05/20/2025 2:49 PM EDT Type 2 diabetes mellitus with hyperglycemia, with long-term current use of insulin ([facility]) GLUCOSE, BLOOD BY GLUCOSE MONITORING DEVICE (CLIA WAIVED)POCT Routine 05/20/2025 2:30 PM EDT Type 2 diabetes mellitus with hyperglycemia, with long-term current use of insulin ([facility]) LIPID PANEL Routine 02/04/2025 1:58 PM EDT Uncontrolled type 2 diabetes mellitus with hyperglycemia ([facility]) ANNUAL WELLNESS VISIT SCANNED DOCUMENT 12/31/2024 3:00 AM EDT COMPREHENSIVE METABOLIC PANEL Routine 07/29/2024 3:13 PM EDT Preoperative clearance DXA BONE DENSITY STUDY 1/> SITES AXIAL SKEL Routine 02/05/2023 3:00 AM EDT Postmenopausal from Last 3 Months or Most Recently Relevant to Health Maintenance Results * REFERRAL SCANNED DOCUMENT (06/25/2025 3:00 AM EDT) Only the most recent of2 resultswithin the time period is included. 06/25/2025 3:00 AM EDT us Wilfrido Matute PA-C SCAN REFERRAL Final Result * MEDICATIONS SCANNED DOCUMENT (06/11/2025 3:00 AM EDT) 06/11/2025 3:00 AM EDT [facility] Provider Default SCAN MEDS OTHER ORDERS Fin al Result * (ABNORMAL) HGBA1C W/MPG Routine (05/20/2025 2:49 PM EDT) HEMOGLOBIN A1C 7.4(H) <5.7 % 05/21/2025 11:33 AM EDT [facility] MEAN PLASMA GLUCOSE 186 mg/dL (calc) 05/21/2025 11:33 AM EDT [facility] Blood Blood / Unknown 05/20/2025 2 :49 PM EDT 05/21/2025 4:06 AM EDT Narrative [facility] - 05/21/2025 11:38 AM EDT For someone [...] LAB - BLOOD D RAW Final Result [facility] [address] [place] [id number], [facility] [address] [phone] * (ABNORMAL) MICROALBUMIN/CREATININE RATIO, URINE, RANDOM Urine Routine (05/20/2025 2:49 PM EDT) CREATININE, RANDOM URINE 52 20 - 275 mg/dL 05/21/2025 7:12 PM EDT [facility] MICROALBUMIN 2.9 mg/dL 05/21/2025 7:12 PM EDT [facility] MICROALBUMIN/CRE ATININE RATIO, RANDOM URINE 56(H) <30 mg/g creat 05/21/2025 7:12 PM EDT [facility] Urine Urine specimen / Unknown 05/20/2025 2:49 PM EDT 05/21/2025 6:19 AM EDT Narrative [facility] - 05/21/2025 7:17 PM EDT Reference Range [...] patient to be within a diagnostic category. [facility] Gabe Iqbal [facility] LAB URINE AMB ULATORY Final Result Performing Organization Address City/[facility]/ZIP Co de Phone Number [facility] [address] [address], [facility] [address] [phone] * (ABNORMAL) GLUCOSE, BLOOD BY GLUCOSE MONITORING DEVICE (CLIA WAIVED)POCT Routine (05/20/2025 2:30 PM EDT) GLUCOSE 147(A) 70 - 100 mg/dL [facility] POCT Capillary Blood Blood / Unknown 2:30 PM EDT Gabe Iqbal PharmD LAB - BLOOD D RAW Final Result Performing Organization Address City/[facility] Co de Phone Number [facility] OFFICE POCT * (ABNORMAL) LIPID PANEL (02/04/2025 1:58 PM EDT) CHOLESTEROL, TOTAL 142 <200 mg/dL [facility] HDL CHOLESTEROL 45(L) > OR = 50 mg/dL [facility] TRIGLYCERIDES 223(H) <150 mg/dL [facility] Comment: If a non-fasting specimen was collected, consider repeat triglyceride testing on a fasting specimen if clinically indicated. Miriam et al. J. of Clin. Lipidol. 2015;9:129-169. LDL-CHOLESTEROL 69 99 mg/dL (calc) [facility] Comment: Reference range: <100 Desirable range <100 mg/dL for primary prevention; <70 mg/dL for patients with CHD or diabetic patients with > or = 2 CHD risk factors. LDL-C is now calculated using the Ambar calculation, which is a validated novel method providing better accuracy than the Friedewald equation in the estimation of LDL-C. Wily COOK et al. RAHEEL. 2013;310(19): 3640-2267 (http://education.Risk Ident/faq/ZLD134) CHOL/HDLC RATIO 3.2 <5.0 (calc) [facility] NON-HDL CHOLESTEROL 97 <130 mg/dL (calc) [facility] Comment: For patients with diabetes plus 1 major ASCVD risk factor, treating to a non-HDL-C goal of <100 mg/dL (LDL-C of <70 mg/dL) is considered a therapeutic option. Blood Blood / Unknown 02/04/2025 1 :58 PM EDT 02/04/2025 1:59 PM EDT Gabe Iqbal PharmD LAB - BLOOD D RAW Final Result [facility] [address] [place] [id number], [facility] [address] [place] [phone] * ANNUAL WELLNESS VISIT SCANNED DOCUMENT (12/31/2024 3:00 AM EDT) 12/31/2024 3:00 AM EDT Anthony Triplett MD SCAN OTHER ORDERS Final Resu lt * (ABNORMAL) COMPREHENSIVE METABOLIC PANEL (07/29/2024 3:13 PM EDT) GLUCOSE 181(H) 65 - 139 mg/dL [facility] Comment: Non-fasting reference interval UREA NITROGEN (BUN) 17 7 - 25 mg/dL [facility] CREATININE (blood) 0.88 0.60 - 0.95 mg/dL [facility] EGFR 66 > OR = 60 mL/min/1. 73m2 [facility] BUN/CREATININE RATIO SEE NOTE: [facility] Comment: Not Reported: BUN and Creatinine are within reference range. SODIUM 139 135 - 146 mmol/L [facility] POTASSIUM 4.0 3.5 - 5.3 mmol/L [facility] CHLORIDE 101 98 - 110 mmol/L [facility] CARBON DIOXIDE 29 20 - 32 mmol/L [facility] CALCIUM 9.6 8.6 - 10.4 mg/dL [facility] PROTEIN, TOTAL 6.7 6.1 - 8.1 g/dL [facility] ALBUMIN 4.0 3.6 - 5.1 g/dL [facility] GLOBULIN 2.7 1.9 - 3.7 g/dL (calc) [facility] ALBUMIN/GLOBULI N RATIO 1.5 1.0 - 2.5 (calc) [facility] BILIRUBIN, TOTAL 0.6 0.2 - 1.2 mg/dL [facility] ALKALINE PHOSPHATASE 59 37 - 153 U/L [facility] AST 14 10 - 35 U/L [facility] ALT 14 6 - 29 U/L [facility] Blood Blood / Unknown 07/29/2024 3 :13 PM EDT 07/29/2024 3:14 PM EDT Narrative [facility] - 07/30/2024 6:02 AM EDT FASTING:NO us Wilfrido Matute PA-C LAB - BLOOD DRAW Final Resul t [facility] [address] [address], [facility] [address] [phone] * DXA BONE DENSITY STUDY 1/> SITES AXIAL SKEL (02/05/2023 3:00 AM EDT) 02/05/2023 3:00 AM EDT us Wilfrido Matute PA-C IMG DXA Edited Resul t - Final from Last 3 Months or Most Recently Relevant to Health Maintenance Insurance [facility] [place] [id number] Care Teams Film Inspector Relationship Specialty Start Date End Date Wilfrido Matute PA-C [address] [place] [address] PCP - General 03/23/22
--- OUTSIDE RECORDS SUMMARY | 2025-08-03 06:14 | XMS_ITS | Clinical Summary ---
Author Organization [facility] Address [address] [place] [address] Care Team Providers Care Physician/Allergy/Immunology Name Role Phone Unavailable Primary Care Provider [...] Most Recently Relevant to Health Maintenance Insurance [facility] DENTAL [facility]
== END 2025-08-03 06:13 | disposition home or self-care (01) ==
LOC: CF 06:12
PROVIDERS: Visit Provider Anesthesiology
DX: M51.369 Other intervertebral disc degeneration, lumbar region without mention of lumbar back pain or lower extremity pain (principal); M48.062 Spinal stenosis, lumbar region with neurogenic claudication
CPT/HCPCS: 62323; J2003; J3301; Q9967

== ENCOUNTER 2025-08-03 09:35 | Outpatient (AMB) | payer OTHER, SELFPAY ==
--- NOTE | 2025-08-03 09:41 | MHC.OFFVIS ---
Vital Signs 08/03/25 09:42 Height 4 ft 11 in Weight 119 lb BMI 24.0 BP 108/55 L Blood Pressure Location Lt brachial Position Sitting Respiration 16 Pulse 75 Pulse Source Pulse Oximeter Pulse Oximetry (%) 97 Oxygen Delivery Method Room Air Intake Visit Reasons: L4-L5 Interlaminar MAIDA Allergies Penicillins Allergy (Unknown, Verified 06/25/25 10:26) Unknown aspirin (ASA) Allergy (Verified 06/25/25 10:26) Unknown [facility] Medical History (Updated 04/23/25 @ 10:29 by Daniel Webb MD) Rectal mucosa prolapse Dementia Diabetes HTN (hypertension) Social History Alcohol intake: never Patient Tobacco Use Status: Never used Tobacco Current occupational status: disabled Physical Exam Vital Signs: Last Vital Signs Pulse 75 08/03/25 09:42 Resp 16 08/03/25 09:42 BP 108/55 L 08/03/25 09:42 Pulse Ox 97 08/03/25 09:42 Oxygen Delivery Method Room Air 08/03/25 09:42 BMI result Body Mass Index 24.0 Assessment & Plan Assessment & Plan (1) Lumbar radiculopathy: Code(s): M54.16 - Radiculopathy, lumbar region Category: Medical (2) Lumbar disc herniation: Code(s): M51.26 - Other intervertebral disc displacement, lumbar region Category: Medical (3) Lumbar spinal stenosis: Code(s): M48.061 - Spinal stenosis, lumbar region without neurogenic claudication Category: Medical Qualifiers: Neurogenic claudication status: with neurogenic claudication Qualified Code(s): M48.062 - Spinal stenosis, lumbar region with neurogenic claudication Plan Interlaminar L4-5 epidural steroid injection. Informed consent was thoroughly explained to the patient before the procedure.? The patient came to the operating room.? He was positioned prone on operating table with a pillow under his abdomen.? Time-out was performed delineating correct site and side of the procedure, nature of the injection, name and date of of the patient. The lower back of the patient was prepped with ChloraPrep and draped with sterile utility towels.? C-arm was brought over the operating field and sq picture of L5 vertebra was demonstrated on the screen.? The upper margin of the left lamina of the L5 vertebra was chosen as initial target of the injection. The projection of the target to the skin was injected with small amount of lidocaine 1% forming a skin wheal. After that 20 gauge Touhy needle was inserted through the skin wheal and it was advanced to were the L4-5 epidural interspace under intermittent anterior posterior and lateral views using loss of resistance to air technique as the texture of the epidural space. When loss of resistance is felt and the tip of the needle needle was positioned 2 mm beyond interlaminar line on the lateral view injection of the contrast was performed delineating an epidurogram. After that injection of the 5 cc of lidocaine 1% mixed with Kenalog 40 mg was performed into the needle. After that needle was withdrawn and Band-Aid was applied. Patient tolerated procedure well. Orders: Orders FL guidance in treatment room Today M54.16 - Radiculopathy, lumbar region Coding Level of Care Code Procedure Only Diagnoses Lumbar radiculopathy M54.16 Lumbar disc herniation M51.26 Spinal stenosis of lumbar region with neurogenic claudication M48.062 Neurogenic claudication status: with neurogenic claudication
[2025-08-03 09:42] VITALS: BP 108/55; PULSE 75; RESP 16; O2SAT 97; BMI 24.0
== END 2025-08-03 10:07 | disposition home or self-care (01) ==
LOC: HO.PMCPRC 09:35
PROVIDERS: PCP Physician Assistant; Visit Provider Anesthesiology
DX: M54.16 Radiculopathy, lumbar region (principal); M48.062 Spinal stenosis, lumbar region with neurogenic claudication
CPT/HCPCS: 62323

== ENCOUNTER 2025-09-08 09:03 | Outpatient (AMB) | payer OTHER, SELFPAY ==
--- NOTE | 2025-09-08 09:19 | MHC.OFFVIS ---
Vital Signs 09/08/25 09:20 Height 4 ft 11 in Weight 117 lb BMI 23.6 BP 126/67 Blood Pressure Location Rt brachial Position Sitting Respiration 16 Pulse 78 Pulse Source Pulse Oximeter Pulse Oximetry (%) 93 Oxygen Delivery Method Room Air Intake Visit Reasons: S/P L4-L5 Interlaminar MAIDA Presales Senior Specialist Required: Yes Presales Senior Specialist Language: Upper Sorbian Information Interpreted: clinical only Accompanied by: Life Partner Allergies Penicillins Allergy (Unknown, Verified 09/08/25 09:19) Unknown aspirin (ASA) Allergy (Verified 09/08/25 09:19) Unknown HPI Comments Details: Zaida is here in the office to report the results of the L4-5 interlaminar epidural steroid injection. She reports excellent pain relief. She reports absence of pain at this time. She stated that the pain at this time is 0 while sitting and she reports minimal pain aggravation with walking. It maybe from the component of the spondylosis of the lumbar spine. We discussed further treatment with the patient today. I explained to her that we can repeat this injection once in 3 to 4 months. She will give us a call when her pain will become stronger and we will decide on further actions. Prior: The patient is an 80-year-old female presenting with back pain due to a bulging intervertebral disc. The pain is attributed to nerve compression caused by the disc bulge, which has been exacerbated by her underlying diabetes mellitus. She has been managing the pain with physical therapy and has been advised to receive an injection for pain relief. The patient has a history of diabetes mellitus, which she monitors regularly through blood sugar checks. Her last A1c level is not specified, but she reports that her blood sugar levels are stable. Additionally, the patient has been diagnosed with arthritis, which has been confirmed through previous x-rays. She has not experienced any recent falls, and her pain management includes the use of ice and warm baths. - Pain is located in the back due to a bulging intervertebral disc. - Pain is exacerbated by nerve compression and underlying diabetes mellitus. - Pain management includes physical therapy, ice, and warm baths. - Affect: Pain impacts daily activities, requiring physical therapy and potential injection for relief. - Analgesia: Current management includes physical therapy, ice, and warm baths; injection planned pending A1c results. - Activities of Daily Living: Pain affects mobility, but no recent falls reported. [facility] Medical History (Updated 04/23/25 @ 10:29 by Daniel Webb MD) Rectal mucosa prolapse Dementia Diabetes HTN (hypertension) Social History Alcohol intake: never Patient Tobacco Use Status: Never used Tobacco Current occupational status: disabled Review of Systems Const All systems reviewed & are unremarkable except as noted in HPI and below Physical Exam Exam Exam: General: awake, alert, oriented. Answers questions appropriately. Fully engaged in examination. Skin: warm, dry, intact. Varicose veins noted left calf. Tender to palpation HEENT: Normocephalic. Hearing intact. Cardiac: External chest normal in appearance. Respiratory: No cough, audible wheezing or stridor. Abdomen: without gross distension. MS: No obvious swelling or deformities. Ambulates with steady gait. Able to rise from sit to stand without assistance. Nontender over midline lumbar vertebrae and lower paraspinal muscles SLR negative bilaterally Neurological: Oriented to person, place, time and situation. Thought process intact. No gait abnormalities appreciated. Psychiatric: Appropriate mood and affect. Good judgment and insight. Vital Signs: Last Vital Signs Pulse 78 09/08/25 09:20 Resp 16 09/08/25 09:20 BP 126/67 09/08/25 09:20 Pulse Ox 93 09/08/25 09:20 Oxygen Delivery Method Room Air 09/08/25 09:20 BMI result Body Mass Index 23.6 Assessment & Plan Assessment & Plan (1) Diabetes: Code(s): E11.9 - Type 2 diabetes mellitus without complications Category: Medical (2) Lumbar spinal stenosis: Code(s): M48.061 - Spinal stenosis, lumbar region without neurogenic claudication Category: Medical Qualifiers: Neurogenic claudication status: with neurogenic claudication Qualified Code(s): M48.062 - Spinal stenosis, lumbar region with neurogenic claudication (3) Lumbar disc herniation: Code(s): M51.26 - Other intervertebral disc displacement, lumbar region Category: Medical Plan Next appointment is as needed good results of the interlaminar L4-5 epidural steroid injection. Coding Level of Care Code Est Pt Level 3 (86510) Diagnoses Diabetes E11.9 Spinal stenosis of lumbar region with neurogenic claudication M48.062 Neurogenic claudication status: with neurogenic claudication Lumbar disc herniation M51.26
[2025-09-08 09:20] VITALS: BP 126/67; PULSE 78; RESP 16; O2SAT 93; BMI 23.6
--- OUTSIDE RECORDS SUMMARY | 2025-09-08 09:40 | XMS_ITS | Clinical Summary ---
Author Organization [facility] Address [address] 7[address] [place] [address] Care Team Providers Care Wharf Tender Head Name Role Phone Unavailable Primary Care Provider [...] Most Recently Relevant to Health Maintenance Insurance [facility] DENTAL [facility]
--- OUTSIDE RECORDS SUMMARY | 2025-09-08 09:41 | XMS_ITS | Data Portability ---
Author Organization [facility], [facility] Address [address] [place] [address] Assessment No assessment recorded. Plan of Treatment Reminders Order Date Submit Date Provider Last Modified By Organization Details Last Modified Time Details Appointments None recorded. Lab None recorded. Referral None recorded. Procedures None recorded. Surgeries None recorded. Imaging XR, knee, 4 or more view - 111 R KNEE 4V W/B. SPAN SPEAKING 2023 024 [facility], [address], [address], [place], [address], 4 10:22:06 Medication Orders None recorded. Patient TargetsNo targets recorded. Patient InstructionsNo instructions recorded. Reason for Referral None Reported. Problems Name Problem SNOMED Code Status Onset Date Resolution Date Notes Provider Name and Address Organization Details Recorded Time Pain of right knee joint [id number] Active [address], [facility] 4 09:27:27 Problem Notes None recorded. Procedures Surgical History Date Name Laterality Status Provider Name and Address Organization Details Recorded Time 01/28/2024 Sports Knee 4&1 completed Yordy Henson PA-C [address], [place], [address], [facility] 01/28/2024 13:30:46 Imaging Results None recorded. [...] Updated DateTime 01/28/2024 149.86 cm 25.4 kg/m2 52840.64 g ALYSSIA BENJAMIN [place] - [facility] 01/28/2024 09:34:56 Social History None recorded. Functional Status None recorded. Mental Status None recorded. Family History Nothing Reported. Medical History No medical history recorded. Gynecological HistoryNo gynecological history recorded. Obstetrics History GPAL:G 0 P 0 0 0 0 Past Encounters Encounter ID Performer Location Encounter Start Date Encounter Closed Date Diagnosis/Indication Diagnosis SNOMED-CT Code Diagnosis ICD10 Code Diagnosis IMO Codes Diagnosis Note [id number] [facility] [address], [place] [address] 01/28/2024 09:06:54 02/07/2024 10:22:06 Pain of right knee joint 7417736677 88949 M25.561 Osteoarthr itis of right knee joint 4527410229 58826 M17.11 Health Concerns Section Related Observation LastModified by Organization Detai ls LastModified Time None Recorded Concern Status LastModified by Organization Details LastModified Time None Recorded Advance Directives Directive None Recorded Payers Insurance Date Sequence Insurance Name Policy Number Policy Yañez Covered Member ID Yañez Member ID Guarantor Name 02/07/2024 1 [facility] - DOS ON OR AFTER 2023 - ONE CARE (MEDICARE REPLACEMENT/ADV ANTAGE - HMO) Zaida Geiger [id number] Zaida Geiger Notes Date Note Type Note Provider Name and Address Organization Details Recorded Time 01/28/2024 text/html ROS as noted in the HPI I am seeing the patient today under the supervision of Dr. Martinez who was available but who did not see the patient. HPI:Patient is an 78-year-old female [place]yrgyz speaking only who presents to the office today with her for right knee pain. Quality Assurance Manager services were used for this visit. [...] as scheduled. Yordy Henson PA-C [address] [facility] [address], [place], [address], [facility] - [facility] 01/28/2024 13:31:11 OBGyn Episode No OBEpisode recorded.
== END 2025-09-08 09:33 | disposition home or self-care (01) ==
PROVIDERS: PCP Physician Assistant; Visit Provider Anesthesiology
DX: E11.9 Type 2 diabetes mellitus without complications (principal); M48.062 Spinal stenosis, lumbar region with neurogenic claudication; M51.26 Other intervertebral disc displacement, lumbar region
CPT/HCPCS: 99213

== ENCOUNTER → 2025-09-08 09:03 | Outpatient (BNVA) | payer OTHER, SELFPAY | PROVIDERS: PCP Physician Assistant; Visit Provider Anesthesiology | DX: M51.26 Other intervertebral disc displacement, lumbar region (principal); M48.062 Spinal stenosis, lumbar region with neurogenic claudication; E11.9 Type 2 diabetes mellitus without complications | CPT/HCPCS: 99212 ==